=== PATIENT | female | born 1965 | race Hispanic/Latino ===

== ENCOUNTER 2020-09-19 11:27 | Inpatient (IN) | payer BC ==
[~2020-09-19 11:27] MED LIST: PROPOFOL 200 MG/20 ML VIAL ONE; Succinylcholine 200 MG/10 ml SYRINGE FS ONE
[2020-09-19] MEDS ORDERED: niCARdipine 20MG In NaCl 20 MG/200 ML BAG ONE ×3 (11:40→19:07)
[2020-09-19 11:58] LABS: #Basophils 0.1 thou/uL (0.0-0.2); #Lymphocytes 1.4 thou/uL (1.20-3.40); #Monocytes 0.5 thou/uL (0.11-0.59); %Basophils 0.4 % (0.0-1.0); %Eosinophils 0.2 % (0.0-10.0); %Lymphocytes 9.8 % (21.0-51.0); %Monocytes 3.5 % (0.0-10.0); %Neutrophils 86.2 % (42.0-75.0); Hemoglobin 16.1 g/dL (12.0-16.0); Mean Corpuscular HGB CONC 33.6 g/dL (32.0-36.0); Mean Corpuscular Hemoglobin 32.1 pg (27.0-31.0); Mean Corpuscular Volume 95.6 fL (78.0-98.0); Mean Platelet Volume 7.9 fL (7.4-10.4); Platelet Count 240 thou/uL (130-400); RBC Distribution Width 11.8 % (11.5-14.5); Red Blood Cell (RBC) Count 5.02 mill/uL (4.20-5.40); White Blood Cell (WBC) Count 13.9 thou/uL (4.8-10.8)
[2020-09-19 12:18] LABS: ALT (SGPT) 19 U/L (8-55); AST (SGOT) 16 U/L (5-34); Albumin 4.1 g/dL (3.5-5.0); Alkaline Phosphatase 107 U/L (40-110); Anion Gap 14 mmol/L (10-20); BUN (Urea Nitrogen) 11 mg/dL (9.8-20.1); Bilirubin, Total 0.5 mg/dL (0.2-1.2); CK (CPK) 266 U/L (29-168); Calc. Creatinine Clearance 0 mL/min (70-130); Calcium 9.1 mg/dL (7.8-10.44); Carbon Dioxide 29 mmol/L (22-29); Chloride 102 mmol/L (98-107); Globulin 3.9 g/dL (2.4-3.5); Glucose 126 mg/dL (70-105); Lipase 11 U/L (8-78); Potassium 3.7 mmol/L (3.5-5.1); Sodium 141 mmol/L (136-145)
--- NOTE | 2020-09-19 12:23 | RAD ---
RADIOGRAPH CHEST 1 VIEW: DATE: 09/19/2020 11:55 AM HISTORY: 55-year-old female with altered mental status, nausea, generalized weakness. Concern for aspiration. FINDINGS: The image is overexposed. There is no gross evidence of consolidation. The lateral costophrenic angle s are not effaced. Aorta is tortuous and ectatic. IMPRESSION: 1) Limited study. 2) no gross consolidation. 3) ectasia of thoracic aorta.
[2020-09-19] MEDS ORDERED: Ondansetron PF 4 MG/2 ML Vial ONE ×2 (12:25→15:01)
--- NOTE | 2020-09-19 13:17 | CT ---
CT HEAD WITHOUT IV CONTRAST COMPARISON: None. HISTORY: Altered mental status. Dizziness and nausea. Headache and generalized weakness. TECHNIQUE: Axial CT imaging at 5 mm intervals from vertex through skull base without contrast FINDINGS: There is decreased attenuation in the periventricular white matter which is nonspecific but likely re flective of chronic small vessel ischemic changes. Areas of diminished attenuation are seen in each thalamus as well as each basal ganglia related to lacunar infarctions of indeterminate age. There is mild cerebral volume loss. The ventricular system is normal in size, shape, and position for the degree of sulcal atrophy. There is no evidence of an acute cortical infarction, hemorrhage, mass effect, or midline shift. There are 2 aneurysms seen involving the basilar artery one near the proximal basilar artery at the j unction with the vertebral arteries which measures approximately 1.3 cm in diameter and a larger aneurysm seen just distal to this location measuring approximately 2 cm. There is generalized ectasia of the visualized middle cerebral arteries. Vascular calcifications are seen in the vertebral arteries as well as in the carotid siphons. Minimal mucosal thickening seen in each maxillary antrum and right sphenoid sinus. Mastoid air cells are clear Osseous structures appear intact. A prosthetic right globe is present. IMPRESSION: 1. Lacunar infarctions in each basal ganglia and thalami of indeterminate age. There is no acute peter ical infarction seen. 2. Chronic small vessel ischemic changes and cerebral volume loss. 3. Prominent aneurysms involving the basilar artery largest measuring [address] angiogram may be helpf ul for further evaluation and determination of the relationship of the proximal aneurysm with the vertebral arteries as well as proximity of the larger aneurysm with the posterior cerebral arteries. 4. Above findings discussed with Dr. Brizuela in the emergency department on 09/19/2020 at 1242 hours.
[2020-09-19 13:24] LABS: INR-International Normal Ratio 0.9; PTT 25.7 sec (22.9-36.1); Prothrombin Time 12.8 sec (12.0-14.7)
[2020-09-19] MEDS ORDERED: Iopamidol-370 76% 500 ML 1 ML ONE (13:35)
[2020-09-19] MEDS ORDERED: Docusate 100 MG CAP PO PRN (14:00)
[2020-09-19] MEDS ORDERED: Ondansetron PF 4 MG/2 ML Vial IVP PRN ×2 (14:00)
[2020-09-19] MEDS ORDERED: Electrolyte Replacement Protocol 1 EACH IVPB ONE (14:00)
[2020-09-19] MEDS ORDERED: Bisacodyl 10 MG SUPP PR PRN (14:00)
[2020-09-19] MEDS ORDERED: Acetaminophen 650 MG Suppository PR PRN (14:00)
--- NOTE | 2020-09-19 14:10 | PDOC.HHP ---
Hospitalist HPI Altered mental status, nausea, dizziness History of Present Illness: Ms. 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 Most of the history is taken from the patient's sister who is at bedside as patient is quite lethargic. 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 Patient sister states that when home patient symptoms worsened and she began dry heaving, and appeared to be confused. Patient says she is unsure if patient was able to recognize her. Patient's sister does not report any identifiable localized weakness, or facial droop. Patient does have a history of hypertension, but sister states that she is noncompliant with medication. Unsure as to what other medications patient takes. In emergency room initial vital signs 261/143, 76, 16, 98.1, 94% on room air. EKG showed normal sinus rhythm with left ventricular hypertrophy but no ST changes. Initial troponin 0 0.010. BNP 31.5. Chest x-ray with no acute lung findings, but did show ectasia of the thoracic aorta. H&H 16.1/48.1, WBC 13.9, platelets 240. BUN/CR 11/0.76, sodium 141, potassium 3.7, glucose 126. CTA of the brain showed prominent aneurysms including a 2 cm basilar artery aneurysm a nd a second 1.3 cm proximal basilar artery aneurysm at the junction of the vertebral arteries. Age-indeterminate lacunar infarct of basal ganglia and thalamus are also seen. No acute cortical infarction, hemorrhage, mass-effect or midline shift was noted. Patient admitted to hospitalist service with stat neurosurgery consult in place by emergency room physician. Allergies/Adverse Reactions: Allergy/AdvReac Type Severity Reaction Status Date / Time No Known Allergies Allergy Unverified 09/19/20 14:13 Comments: No known home medications. Report taken from patient's sister who reports that she has been prescribed medications for blood pressure and osteoarthritis in the past but does not believe patient is currently taking any. Past History: PMHx: Hypertension, osteoarthritis PSHx: Leg fracture with surgical repair, right globe traumatic injury as a child, prosthetic right eye in place. FHx: Family history of hypertension Social: Patient works as a cook at [employer]. No alcohol, smoking, drug use. Lives with her son Hospitalist GISELL IGNACIO unobtainable: due to mental status Constitutional: reports: weakness, malaise Eyes: denies: vision change Respiratory: denies: shortness of breath Cardiovascular: reports: light headedness. denies: chest pain, palpitations Gastrointestinal: reports: nausea Hospitalist Exam General - other findings: Lethargic Eye: PERRL, anicteric sclera ENT: normocephalic atraumatic, no oropharyngeal lesions, moist mucosa Neck: supple, symmetric, no JVD, no thyromegaly, no lymphadenopathy, no carotid bruit Heart: RRR, no murmur, no gallops, no rubs, normal peripheral pulses Respiratory: CTAB, no wheezes, no rales, no ronchi, normal chest expansion, no tachypnea, normal percussion Gastrointestinal: soft, non-tender, non-distended, normal bowel sounds, no palpable masses, no hepatomegaly, no splenomegaly, no bruit Extremities: no cyanosis, no clubbing, no edema Skin: normal turgor, no lesions, no rashes Neurological: cranial nerve grossly intact, normal sensation to touch, no weakness, no focal deficits, no new deficit Musculoskeletal: normal tone, normal strength, no muscle wasting Psychiatric: normal affect, normal behavior, A&O x 3 Hospitalist Results Result Diagrams: 09/19/20 11:48 09/19/20 11:43 Lab results: Laboratory Last Values WBC 13.9 thou/uL (4.8-10.8) H 09/19/20 11:48 RBC 5.02 mill/uL (4.20-5.40) 09/19/20 11:48 Hgb 16.1 g/dL (12.0-16.0) H 09/19/20 11:48 Hct 48.0 % (36.0-47.0) H 09/19/20 11:48 MCV 95.6 fL (78.0-98.0) 09/19/20 11:48 MCH 32.1 pg (27.0-31.0) H 09/19/20 11:48 MCHC 33.6 g/dL (32.0-36.0) 09/19/20 11:48 RDW 11.8 % (11.5-14.5) 09/19/20 11:48 Plt Count 240 thou/uL (130-400) 09/19/20 11:48 MPV 7.9 fL (7.4-10.4) 09/19/20 11:48 Neutrophils % 86.2 % (42.0-75.0) H 09/19/20 11:48 Lymphocytes % 9.8 % (21.0-51.0) L 09/19/20 11:48 Monocytes % 3.5 % (0.0-10.0) 09/19/20 11:48 Eosinophils % 0.2 % (0.0-10.0) 09/19/20 11:48 Basophils % 0.4 % (0.0-1.0) 09/19/20 11:48 Neutrophils # 12.0 thou/uL (1.40-6.50) H 09/19/20 11:48 Lymphocytes # 1.4 thou/uL (1.20-3.40) 09/19/20 11:48 Monocytes # 0.5 thou/uL (0.11-0.59) 09/19/20 11:48 Eosinophils # 0.0 thou/uL (0.0-0.7) 09/19/20 11:48 Basophils # 0.1 thou/uL (0.0-0.2) 09/19/20 11:48 PT 12.8 sec (12.0-14.7) 09/19/20 11:49 INR 0.9 09/19/20 11:49 APTT 25.7 sec (22.9-36.1) 09/19/20 11:49 Sodium 141 mmol/L (136-145) 09/19/20 11:43 Potassium 3.7 mmol/L (3.5-5.1) 09/19/20 11:43 Chloride 102 mmol/L (98-107) 09/19/20 11:43 Carbon Dioxide 29 mmol/L (22-29) 09/19/20 11:43 Anion Gap 14 mmol/L (10-20) 09/19/20 11:43 BUN 11 mg/dL (9.8-20.1) 09/19/20 11:43 Creatinine 0.76 mg/dL (0.6-1.1) 09/19/20 11:43 Estimated GFR (MDRD) 80 09/19/20 11:43 Glucose 126 mg/dL (70-105) H 09/19/20 11:43 Calcium 9.1 mg/dL (7.8-10.44) 09/19/20 11:43 Total Bilirubin 0.5 mg/dL (0.2-1.2) 09/19/20 11:43 AST 16 U/L (5-34) 09/19/20 11:43 ALT 19 U/L (8-55) 09/19/20 11:43 Alkaline Phosphatase 107 U/L (40-110) 09/19/20 11:43 Creatine Kinase 266 U/L (29-168) H 09/19/20 11:43 Troponin I Less than 0.010 ng/mL (< 0.028) 09/19/20 11:43 B-Natriuretic Peptide 31.5 pg/mL (0-100) 09/19/20 11:48 Serum Total Protein 8.0 g/dL (6.0-8.3) 09/19/20 11:43 Albumin 4.1 g/dL (3.5-5.0) 09/19/20 11:43 Globulin 3.9 g/dL (2.4-3.5) H 09/19/20 11:43 Albumin/Globulin Ratio 1.1 g/dL (1.2-2.2) L 09/19/20 11:43 Lipase 11 U/L (8-78) 09/19/20 11:43 Hospitalist H&P A/P Plan: Altered mental status Patient with altered mental status including severe hypertension, nausea, headache. Suspect elevated intracranial pressure secondary to hypertensive emergency and very large multiple cerebral aneurysms versus intracranial bleed vs ischemic stroke. CT scan with no evidence of acute bleed, midline shift or mass-effect. Patient lethargic on exam, however is able to answer questions and follow commands. ANO x4. Neuro exam is nonfocal. Patient started on nifedipin e drip in emergency room. Stat neurosurgery consult to evaluate for question of elevated ICP and large cerebral aneurysms. Plan CCU monitoring Head of bed greater than 30 degrees Strict n.p.o. Strict blood pressure management Glucose control -STAT MRI brain -Neurology consult Stat neurosurgery consult Hypertensive emergency Patient initially presented with blood pressure 261/143. Started on nifedipine drip in emergency room with improvement of blood pressure to 169/89. Patient with altered mental status. Given suspicion for elevated intracranial pressure and question of intracranial bleed will maintain strict blood pressure control. Plan Nifedipine drip Strict blood pressure control CCU monitoring Cerebral aneurysms Patient with large 2 cm cerebral aneurysm of the basilar artery and additional 1.3 cm aneurysm of the proximal basilar artery near the vertebral artery junction. These appear to be the first time these have been diagnosed. No evidence of dissection on CT scan. No evidence of acute intracranial bleed. Stat neurology consult placed. Plan Stat neurosurgery consult Every 2 hour neurochecks Blood pressure control Thoracic aortic ectasia Chest x-ray showed ectasia of thoracic aorta. Given patient's multiple cerebral aneurysms, suspicion for some type of collagen vascular disease. Once patient is more stabilized will pursue CT aorta with runoff to assess for further aortic disease. No known family history of aneurysmal disease. Plan CTA aorta with runoff once stabilized Leukocytosis WBC 13.9. No suspicion for infectious process at this time. May be reactive. Patient afebrile. We will continue to trend. Obtain lactic acid. Left ventricular hypertrophy LVH on EKG. Mild systolic murmur heard on exam. Will obtain echocardiogram to further evaluate once patient is stabilized. Troponin 0 0.010, BNP 31.5. Case discussed with attending physician, Dr. Reynaga who is in agreement with assessment and plan.
[2020-09-19] MEDS ORDERED: Electrolyte Replacement Protocol FS PRN (14:15)
[2020-09-19] MEDS ORDERED: niCARdipine 25 MG in Sodium Chloride 0.9% 250 ML 250 ML IVPB SCH (14:15)
--- NOTE | 2020-09-19 15:13 | PDOC.EVN ---
Event Note - Event Note Event Note: Patient's case was reviewed with JOVANNA Paulino. Patient presented with severe headache and altered mental status. Imaging has indicated significant aneurysmal changes of the brain. Patient remains somewhat encephalopathic although she has no other focal neurological findings. Blood pressure remains significantly elevated even while on the Cardene drip. Discussed with neurosurgery. Obtaining MRI to rule out potential bleed. Has some thoracic aortic aneurysmal ectasia as well. Will work-up for other potential aneurysmal lesions. Admit to the ICU on a Cardene drip for aggressive blood pressure management.
--- NOTE | 2020-09-19 16:16 | MRI ---
MRI BRAIN NONCONTRAST: DATE: 09/19/2020 HISTORY: 55-year-old female with acute dizziness, nausea, headache, generalized weakness, and decreased level of consciousness. Dr. Burks discussed the findings by telephone with neurosurgery JOVANNA Mackenzie at 4:04 PM 09/19/2020 COMPARISON: None FINDINGS: All of the images are significantly degraded by patient motion. There is a moderate-sized region of restricted diffusion involving the inferior aspect of the left ce rebellar hemisphere representing an acute infarction in the left PICA territory. There is a punctate tiny focus of restricted diffusion in the inferior aspect of the contralateral ri ght cerebellar hemisphere representing an acute lacunar infarction in the right PICA territory. There is no restricted diffusion supratentorially in the cerebrum or in the brainstem. There is deep chronic indentation of the right anterior midbrain and james due to the large basilar ar argelia aneurysm demonstrated on CT angiogram earlier today. There is a large number of punctate foci of magnetic susceptibility blooming artifact in the posterio r halves of the bilateral cerebral hemispheres, including temporal, parietal, and occipital lobes, and also bilateral thalami, representing numerous tiny old microhemorrhages. In a patient of this age, this could represent chronic hypertensive encephalopathy. However, the lack of involvement of bilateral basal ganglia militates against chronic hypertensive en cephalopathy. This pattern is typical for cerebral amyloid angiopathy, but the patient's age is young for that diag nosis. There are confluent, moderate degree of chronic ischemic white matter changes in the periventricular, deep, and subcortical white matter of the cerebrum. No obstructive hydrocephalus, acute intra-axial hemorrhage, midline shift, or extra-axial fluid colle ction.. IMPRESSION: 1) moderate sized acute infarction of the left cerebellum in the left PICA (posterior-inferior cerebe llar artery) territory. 2) tiny acute lacunar infarction of right cerebellum in the right PICA territory. 3) large basilar artery aneurysm deeply indenting the brainstem chronically. 4) large number of punctate old intra-axial microhemorrhages of the cerebral hemispheres bilaterally. Differential diagnosis is chronic hypertensive encephalopathy versus cerebral amyloid angiopathy, with caveats discussed above. 5) moderate chronic ischemic white matter changes of the cerebrum, which could be due to chronic hype rtension and/or chronic diabetes mellitus.
[2020-09-19 17:12] LABS: Lactic Acid 3.7 mmol/L (0.5-2.2)
[2020-09-19 17:40] LABS: Hemoglobin 16.5 g/dL (12.0-16.0); Mean Corpuscular HGB CONC 33.2 g/dL (32.0-36.0); Mean Corpuscular Hemoglobin 31.9 pg (27.0-31.0); Mean Platelet Volume 7.8 fL (7.4-10.4); Platelet Count 214 thou/uL (130-400); RBC Distribution Width 11.9 % (11.5-14.5); Red Blood Cell (RBC) Count 5.19 mill/uL (4.20-5.40); White Blood Cell (WBC) Count 10.8 thou/uL (4.8-10.8)
[2020-09-19] MEDS ORDERED: Heparin 25,000 units/D5W 500 ML ONE (17:44)
[2020-09-19 18:00] LABS: Band 23 % (5-11); Lymphocytes 4 % (21-51); Monocytes 2 % (0-10); Neutrophil 67 % (42-75); Reactive Lymphocytes 4 % (0-10)
[2020-09-19 18:01] LABS: Polychromasia SLIGHT = 2-3 cells (100X) (0-2/hpf); Target Cells SLIGHT = 2-5 cells (100X) (0-1/hpf)
[2020-09-19 18:02] LABS: MDiff Complete? YES; Platelet Morphology Comment Appears Adequate
[2020-09-19 18:05] LABS: Anion Gap 16 mmol/L (10-20); Carbon Dioxide 21 mmol/L (22-29); Chloride 104 mmol/L (98-107); Potassium 4.2 mmol/L (3.5-5.1); Sodium 137 mmol/L (136-145)
[2020-09-19 18:19] LABS: BUN (Urea Nitrogen) 11 mg/dL (9.8-20.1); Calc. Creatinine Clearance 0 mL/min (70-130); Glucose 134 mg/dL (70-105); Uric Acid 6.2 mg/dL (2.6-6.0)
[2020-09-19 18:26] LABS: SARS-CoV-2 NAA Rapid Test Not Detected (NotDetected)
[2020-09-19] MEDS: niMODipine 30 MG CAP PO SCH ×2 (21:30→21:45)
[2020-09-19] MEDS: levETIRAcetam 500 MG TAB PO SCH (21:30)
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
[2020-09-20] MEDS ORDERED: Ondansetron PF 4 MG/2 ML Vial ONE (01:28)
[2020-09-20] MEDS ORDERED: Sodium Chloride 0.9% 30 ML ONE (01:29)
[2020-09-20] MEDS: niCARdipine 25 MG in Sodium Chloride 0.9% 250 ML 250 ML IVPB SCH ×4 (02:21→17:04)
[2020-09-20] MEDS: niMODipine 30 MG CAP PO SCH (02:23)
[2020-09-20] MEDS ORDERED: Acetaminophen 325 MG TAB ONE ×2 (04:45→16:33)
[2020-09-20] MEDS: Acetaminophen 325 MG TAB PO PRN ×2 (04:46→16:33)
[2020-09-20 06:12] LABS: #Basophils 0.1 thou/uL (0.0-0.2); #Lymphocytes 1.7 thou/uL (1.20-3.40); #Monocytes 0.5 thou/uL (0.11-0.59); #Neutrophils 10.6 thou/uL (1.40-6.50); %Basophils 0.4 % (0.0-1.0); %Lymphocytes 13.3 % (21.0-51.0); %Monocytes 4.1 % (0.0-10.0); %Neutrophils 82.2 % (42.0-75.0); Hemoglobin 13.7 g/dL (12.0-16.0); Mean Corpuscular HGB CONC 33.1 g/dL (32.0-36.0); Mean Corpuscular Hemoglobin 31.2 pg (27.0-31.0); Mean Corpuscular Volume 94.4 fL (78.0-98.0); Platelet Count 234 thou/uL (130-400); RBC Distribution Width 11.9 % (11.5-14.5); Red Blood Cell (RBC) Count 4.39 mill/uL (4.20-5.40); White Blood Cell (WBC) Count 12.9 thou/uL (4.8-10.8)
[2020-09-20 06:38] LABS: Anion Gap 12 mmol/L (10-20); BUN (Urea Nitrogen) 11 mg/dL (9.8-20.1); Calc. Creatinine Clearance 216 mL/min (70-130); Calcium 8.6 mg/dL (7.8-10.44); Carbon Dioxide 26 mmol/L (22-29); Chloride 103 mmol/L (98-107); Cholesterol 184 mg/dl (< 200 Desired); Glucose 129 mg/dL (70-105); HDL Cholesterol 46 mg/dL (>60 Neg Risk); LDL Cholesterol, Calculated 117 mg/dL; Potassium 3.4 mmol/L (3.5-5.1); Sodium 138 mmol/L (136-145); Triglycerides 106 mg/dL (Less than 150)
[2020-09-20] MEDS ORDERED: Potassium Bicarbonate/Cit Ac 20 MEQ TAB PER TUBE SCH (07:15)
--- NOTE | 2020-09-20 07:51 | PRG ---
DATE OF SERVICE: 09/20/2020 I personally interviewed and examined the patient, agree with documentation of Fer Mackenzie PA-C, dated 09/19/2020. Briefly, Lexus Chase is a 55-year-old woman who had acute onset of nausea and vomiting with headache around 10:00 a.m. yesterday. She came to the emergency department, where CT examination of the brain showed large vascular structures in the posterior fossa, but did not show hemorrhage. MR imaging was done showing a stroke in the left cerebellum and CT angiography showed large dolichoectatic vertebrobasilar system, it is quite tortuous and enlarged. Ms. Chase is treated as posterior fossa stroke. We started heparin without a bolus. The use of heparin was decided upon because of the potential need for decompression of the posterior fossa. At least the heparin can be turned off and reversed in a more acute fashion, then advanced anti-platelet agents and certainly more readily than anticoagulation. Overnight Ms. Chase has been watched in the PACU because our ICU is full. Nursing has not reported any events. When I saw Ms. Chase this morning, she wakes slowly but then she converses. She answers questions appropriately. She tells me she has a prosthetic right eye. Her examination shows that the left eye moves through all directions in primary gaze. There is some end gaze nystagmus when she gazes to the left. The face is sensate right now and it moves symmetrically. She can hear from both ears. The palate elevates, the tongue protrudes. There is dysmetria on the left side of the body and [id number]. Alternating rapid motions are performed very slowly on the left compared to the right. She has intact sensation bilaterally in the body. Her aPTT this morning was 49.6. We are heading towards the therapeutic range that we decided upon without the bolus. Her total IV fluid is 65 mL. White blood cell count this morning is 12.9 and sodium 137. Ms. Chase is being treated as posterior fossa stroke. This is not a subarachnoid hemorrhage. The stroke comes from the dolichoectatic nature of the aneurysm. Slow flow of blood could have occluded PICA or the aneurysm could have changed in its size or put stress on the cerebellar arteries. Hopefully, the heparin will prevent any further propagation of clot. Propagation of clot could be in a locked-in syndrome. Swelling in the cerebellum could mean decompression of posterior fossa as necessary. We will need to watch Ms. Chase very closely over the weekend and have her aPTT between 55 and 70. Job ID: [id number] [facility]TD[facility]
[2020-09-20] MEDS: levETIRAcetam 500 MG TAB PO SCH ×2 (08:31→20:51)
--- NOTE | 2020-09-20 08:52 | CT ---
PRELIMINARY REPORT/[facility]/EMERGENCY AFTER HOURS PROCEDURE: EXAM: CT Head Without Intravenous Contrast. CLINICAL HISTORY: Follow up cerebellar stroke TECHNIQUE: Axial computed tomography images of the head/brain without intravenous contrast. COMPARISON: September 19, 2020 FINDINGS: BRAIN: Some subtle low density is now present involving the inferior portions of the left cerebellum again with marked vertebrobasilar dolichoectasia. There does appear to be some early mass-effect on the fourth ventricle. Lateral ventricles remain prominent with abundant periventricular white mat ter changes noted in the supratentorial space. No midline shift identified. ORBITS: Prosthetic globe on the right. SINUSES AND MASTOIDS: The paranasal sinuses and mastoid air cells are clear. SOFT TISSUES: No significant facial or scalp soft tissue swelling evident. No radiopaque foreign body is seen. BONES: No acute skull fracture. IMPRESSION: Developing left cerebellar infarct with marked vertebrobasilar dolichoectasia. Mild vent riculomegaly noted but stable. ELECTRONICALLY SIGNED BY: Fer Vega MD Sep 20, 2020 4:14:43 AM MANAGER LABORATORY FINAL REPORT HEAD CT WITHOUT CONTRAST: HISTORY: Follow-up left cerebellar infarct. COMPARISON: 09/19/2020. FINDINGS: Hemorrhage: No intraparenchymal hemorrhage or extra-axial hematoma. Brain parenchyma: Cortical huynh-white matter differentiation is preserved. No mass effect or midline shift. Basilar cisterns are patent.Expected evolutionary changes involving a large left cerebellar infarct. Stable chronic small vessel ischemic changes of the white matter. Vessels: Stable ectasia and aneurysmal dilatation. Ventricular system: Ventricles and sulci are patent and symmetric. Calvarium: Intact. Sinuses and mastoid air cells: Adequate aeration. IMPRESSION: 1. This report is in agreement with initial report by [facility]. 2. Expected evolutionary changes of a left cerebellar infarct. Transcribed Date/Time: 09/20/2020 9:18 AM
[2020-09-20] MEDS ORDERED: FLU VACC QS2020-21(6MOS UP)/PF 60 MCG/0.5 ML SYRINGE IM ONE (09:00)
[2020-09-20] MEDS: Heparin 25,000 units/D5W 500 ML IVPB SCH ×2 (09:35→21:00)
[2020-09-20 09:36] LABS: Bilirubin Negative (Negative); Blood, Urine 3+ (Negative); Clarity Clear (Clear); Glucose, Urine (Dipstick) Normal (Negative); Ketone, Urine Negative (Negative); Leukocyte 75 Leu/uL (Negative); Nitrite Negative (Negative); Protein, Urine (Dipstick) 10 mg/dL (Neg-Trace); RBC/HPF Greater than 50 HPF (0-3); Specific Gravity, Urine 1.025 (1.002-1.036); Squamous Epithelial 0-3 HPF (0-3); Urobilinogen Normal mg/dL (Less than 2)
[2020-09-20 09:39] LABS: Bacteria/HPF 1+ HPF (None Seen)
[2020-09-20 13:31] LABS: Potassium 3.7 mmol/L (3.5-5.1)
--- NOTE | 2020-09-20 14:17 | CON ---
NEUROLOGY CONSULTATION DATE OF CONSULTATION: 09/20/2020 REASON FOR CONSULTATION: Posterior circulation stroke. HISTORY OF PRESENT ILLNESS: Ms. 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 The patient is a poor historian. History is obtained from review of the medical records. Per records, the sister reported that the patient was at work and had severe headache with generalized weakness, nausea when she picked her son up and when she reached home, her symptoms worsened and she appeared to be confused and unable to recognize her sister. The sister denies any focal weakness, focal paresthesias, nausea, vomiting, chest pain, abdominal pain, facial droop, or any other neurological symptoms. The sister also denies any recent sick contacts or exposure to COVID. She does have history of hypertension and is noncompliant with the medications. In the emergency room, the blood pressure was 261/143, pulse 76, respiratory rate 16. EKG shows normal sinus rhythm with left ventricular hypertrophy, but no ST changes. Chest x-ray did not reveal any acute lung findings, but does show ectasia of the thoracic aorta. CTA of the brain showed prominent aneurysms including 2 cm basilar artery aneurysm proximal basilar artery aneurysm at the junction of the vertebral artery and age-indeterminate lacunar infarct of the basal ganglia and thalamus is also seen, but no hemorrhage, mass effect, or midline shift. She was admitted to the hospitalist service and stat Neurosurgery consult was placed for further recommendations. The patient was seen by Neurosurgery and was started on heparin drip without bolus to reduce massive effects and admitted to the CCU for close monitoring as that she is at risk of decompensation because of posterior circulation stroke. ALLERGIES: NO KNOWN DRUG ALLERGIES. PAST MEDICAL HISTORY: Hypertension, osteoarthritis. PAST SURGICAL HISTORY: Leg fracture with surgical repair, right globe traumatic injury with prosthetic right eye. FAMILY HISTORY: Significant for hypertension. SOCIAL HISTORY: The patient works as a cook at [employer]. Denies smoking, alcohol, illegal drug use. She lives with her son. REVIEW OF SYSTEMS: Unobtainable at that time. Per sister, all systems reviewed and reported in the HPI. PHYSICAL EXAMINATION: 181/103 88 18 General - other findings: Lethargic Eye: PERRL, anicteric sclera ENT: normocephalic atraumatic, no oropharyngeal lesions, moist mucosa Neck: supple, symmetric, no JVD, no thyromegaly, no lymphadenopathy, no carotid bruit Heart: RRR, no murmur, no gallops, no rubs, normal peripheral pulses Respiratory: CTAB, no wheezes, no rales, no ronchi, normal chest expansion, no tachypnea, normal percussion Gastrointestinal: soft, non-tender, non-distended, normal bowel sounds, no palpable masses, no hepatomegaly, no splenomegaly, no bruit Extremities: no cyanosis, no clubbing, no edema Skin: normal turgor, no lesions, no rashes Neurological: Mental status; the patient is alert and oriented to person, place, and time. Speech is clear. Cranial nerves 2 through 12 intact except prosthetic right eye. Motor; muscle tone and bulk are normal. Moving all 4 extremities equally and symmetrically. Sensory; withdraws to nailbed pressure bilaterally. Cerebellar; finger-nose testing intact. Gait deferred due to patient's safety reason. DATA REVIEWED: Lab results: Laboratory Last Values WBC 13.9 thou/uL (4.8-10.8) H 09/19/20 11:48 RBC 5.02 mill/uL (4.20-5.40) 09/19/20 11:48 Hgb 16.1 g/dL (12.0-16.0) H 09/19/20 11:48 Hct 48.0 % (36.0-47.0) H 09/19/20 11:48 MCV 95.6 fL (78.0-98.0) 09/19/20 11:48 MCH 32.1 pg (27.0-31.0) H 09/19/20 11:48 MCHC 33.6 g/dL (32.0-36.0) 09/19/20 11:48 RDW 11.8 % (11.5-14.5) 09/19/20 11:48 Plt Count 240 thou/uL (130-400) 09/19/20 11:48 MPV 7.9 fL (7.4-10.4) 09/19/20 11:48 Neutrophils % 86.2 % (42.0-75.0) H 09/19/20 11:48 Lymphocytes % 9.8 % (21.0-51.0) L 09/19/20 11:48 Monocytes % 3.5 % (0.0-10.0) 09/19/20 11:48 Eosinophils % 0.2 % (0.0-10.0) 09/19/20 11:48 Basophils % 0.4 % (0.0-1.0) 09/19/20 11:48 Neutrophils # 12.0 thou/uL (1.40-6.50) H 09/19/20 11:48 Lymphocytes # 1.4 thou/uL (1.20-3.40) 09/19/20 11:48 Monocytes # 0.5 thou/uL (0.11-0.59) 09/19/20 11:48 Eosinophils # 0.0 thou/uL (0.0-0.7) 09/19/20 11:48 Basophils # 0.1 thou/uL (0.0-0.2) 09/19/20 11:48 PT 12.8 sec (12.0-14.7) 09/19/20 11:49 INR 0.9 09/19/20 11:49 APTT 25.7 sec (22.9-36.1) 09/19/20 11:49 Sodium 141 mmol/L (136-145) 09/19/20 11:43 Potassium 3.7 mmol/L (3.5-5.1) 09/19/20 11:43 Chloride 102 mmol/L (98-107) 09/19/20 11:43 Carbon Dioxide 29 mmol/L (22-29) 09/19/20 11:43 Anion Gap 14 mmol/L (10-20) 09/19/20 11:43 BUN 11 mg/dL (9.8-20.1) 09/19/20 11:43 Creatinine 0.76 mg/dL (0.6-1.1) 09/19/20 11:43 Estimated GFR (MDRD) 80 09/19/20 11:43 Glucose 126 mg/dL (70-105) H 09/19/20 11:43 Calcium 9.1 mg/dL (7.8-10.44) 09/19/20 11:43 Total Bilirubin 0.5 mg/dL (0.2-1.2) 09/19/20 11:43 AST 16 U/L (5-34) 09/19/20 11:43 ALT 19 U/L (8-55) 09/19/20 11:43 Alkaline Phosphatase 107 U/L (40-110) 09/19/20 11:43 Creatine Kinase 266 U/L (29-168) H 09/19/20 11:43 Troponin I Less than 0.010 ng/mL (< 0.028) 09/19/20 11:43 B-Natriuretic Peptide 31.5 pg/mL (0-100) 09/19/20 11:48 Serum Total Protein 8.0 g/dL (6.0-8.3) 09/19/20 11:43 Albumin 4.1 g/dL (3.5-5.0) 09/19/20 11:43 Globulin 3.9 g/dL (2.4-3.5) H 09/19/20 11:43 Albumin/Globulin Ratio 1.1 g/dL (1.2-2.2) L 09/19/20 11:43 Lipase 11 U/L (8-78) 09/19/20 11:43 ASSESSMENT AND PLAN: Ms. Lexus Chase is a 55-year-old female, who presented with altered mental status in the setting of hypertensive emergency with nausea and headache. There is a concern about elevated intracranial pressure secondary to hypertensive emergency and very large multiple cerebral aneurysms and a high suspicion of posterior circulation stroke and she was started on nifedipine drip in the emergency room and Neurosurgery consult was placed. The patient was seen by the Neurosurgery and stat MRI was performed, MRI of the brain reviewed, which showed restricted diffusion involving the inferior aspect of the left cerebellar hemisphere, representing acute infarction in the left posterior inferior cerebellar artery. . The patient has posterior fossa stroke, so she was started on heparin drip without bolus because of the potential need for decompression of posterior fossa. Continue by Neurosurgery. Continue heparin GTT. Neuro checks every 4 hours. Consider stat noncontrast head CT if the condition worsen to rule out bleed. Telemetry to rule out arrhythmias. Further stroke workup including 2D echo when stable. EEG to rule out cortical irritability and to evaluate for altered mental status.. Sttrict control of blood pressure at this time. PT/OT/Speech . Strict control of blood glucose and blood pressure. Continue medical management per primary team and Neurosurgery. Plan discussed in detail with the patient and the nursing staff. We will continue to follow. Thank you for the consult. Job ID: [id number] MTDD
--- NOTE | 2020-09-20 15:34 | PDOC.EEG ---
Neurology EEG Report - Report Report: This EEG was performed using 24 channel [employer] video EEG machine with 24 disc krysta ctrodes. This was an extended 2 hours 6 minutes of inpatient video EEG recording. Digital analysis of the EEG was done for spike and seizure detection which revealed no abnormalities. Background: There is a nonsustained posterior background rhythm of 8-9 Hz. EEG with excessive beta activity intermixed with the background. Hyperventilation: Not performed. Photic Stimulation: No significant response. Sleep: Drowsiness and sleep are observed. EEG Diagnosis: Occasional irregular theta activity seen during the recording. Nonsustained posterior background rhythm. Clinical Interpretation: This EEG is consistent with mild to moderate generalized nonspecific cerebral dysfunction.
--- NOTE | 2020-09-20 19:32 | PDOC.HOSPP ---
- Subjective Encounter Date: 09/20/20 Subjective: Patient reported that she felt generally well. She did feel a little weak. Physical therapy was there at the time to try to get her up. - Objective Vital Signs & Weight: Vital Signs (12 hours) Temp Pulse Pulse BP BP Pulse Ox Pulse Ox 09/20/20 14:09 81 170/100 H 181/103 H 09/20/20 12:00 97.8 F 09/20/20 10:40 76 78 167/94 H 168/91 H 98 09/20/20 08:30 96 09/20/20 08:15 97 Pulse Ox 09/20/20 14:09 09/20/20 12:00 09/20/20 10:40 93 L 09/20/20 08:30 09/20/20 08:15 Weight Admit Weight 265 lb 14.04 oz Weight 269 lb Most Recent Monitor Data Heart Rate from ECG 79 NIBP 167/94 NIBP BP-Mean 118 Respiration from ECG 31 SpO2 98 I&O: 09/19/20 09/20/20 09/21/20 06:59 06:59 06:59 Intake Total 240 420 Output Total 1140 1260 Balance -900 -840 Result Diagrams: 09/20/20 05:24 09/20/20 12:59 Additional Labs: Accuchecks 09/20/20 09/20/20 09/19/20 11:15 03:12 22:36 POC Glucose 145 H 114 H 130 H Hospitalist ROS - Medication Medications: Active Medications Generic Name Dose Route Start Last Admin Trade Name Freq PRN Reason Stop Dose Admin Acetaminophen 650 mg 09/19/20 14:00 09/20/20 16:33 Acetaminophen 325 Mg Tab PO 650 mg Q6H PRN Administration Fever > 101 or Headache Heparin Sodium/Dextrose 500 mls @ 0 mls/hr 09/19/20 17:15 09/20/20 09:35 Heparin 25,000 Units/D5w IVPB 500 mls INF HOLLY Administration Protocol Per Protocol Levetiracetam 500 mg 09/19/20 21:00 09/20/20 08:31 Levetiracetam 500 Mg Tab PO 500 mg BID HOLLY Administration Ondansetron HCl 4 mg 09/19/20 14:00 09/20/20 01:30 Ondansetron Pf 4 Mg/2 Ml Vial IVP 4 mg BIDPRN PRN Administration Nausea/Vomiting Hospitalist Exam Vitals: Vital Signs (12 hours) Temp Pulse Pulse BP BP Pulse Ox Pulse Ox 09/20/20 14:09 81 170/100 H 181/103 H 09/20/20 12:00 97.8 F 09/20/20 10:40 76 78 167/94 H 168/91 H 98 09/20/20 08:30 96 09/20/20 08:15 97 Pulse Ox 09/20/20 14:09 09/20/20 12:00 09/20/20 10:40 93 L 09/20/20 08:30 09/20/20 08:15 Weight Admit Weight 265 lb 14.04 oz Weight 269 lb Most Recent Monitor Data Heart Rate from ECG 79 NIBP 167/94 NIBP BP-Mean 118 Respiration from ECG 31 SpO2 98 General Appearance: NAD, awake alert General - other findings: Morbidly obese Eye - other findings: Right eye prosthesis Neck: supple, symmetric, no JVD, no thyromegaly, no lymphadenopathy, no carotid bruit Heart: RRR, no murmur, no gallops, no rubs, normal peripheral pulses Respiratory: CTAB, no wheezes, no rales, no ronchi, normal chest expansion, no tachypnea, normal percussion Gastrointestinal: soft, non-tender, non-distended, normal bowel sounds, no palpable masses, no hepatomegaly, no splenomegaly, no bruit Extremities: no cyanosis, no clubbing, no edema Skin: normal turgor Neurological - other findings: Patient was noted to almost fall backwards sitting on the side of the bed Musculoskeletal: no muscle wasting Psychiatric: normal affect, normal behavior Hosp A/P (1) Basilar artery aneurysm Code(s): I72.5 - ANEURYSM OF OTHER PRECEREBRAL ARTERIES Status: Acute (2) Cerebrovascular accident (CVA) due to occlusion of cerebellar artery Code(s): I63.549 - CEREB INFRC DUE TO UNSP OCCLS OR STENOS OF UNSP CEREBLR ART Status: Acute (3) Hypertensive urgency Code(s): I16.0 - HYPERTENSIVE URGENCY Status: Acute (4) Thoracic aortic ectasia Code(s): I77.810 - THORACIC AORTIC ECTASIA Status: Acute (5) Leukocytosis Code(s): D72.829 - ELEVATED WHITE BLOOD CELL COUNT, UNSPECIFIED Status: Acute (6) Acute metabolic encephalopathy Code(s): G93.41 - METABOLIC ENCEPHALOPATHY Status: Acute - Plan Acute metabolic encephalopathy: Clearly secondary to the patient's stroke and hypertensive urgency. Seems to be substantially better today. Patient is much more awake and communicative. Cerebellar CVA: Appreciate neurosurgery and neurology consults. Heparin drip. Concerning for occlusion of the circulation from the existing aneurysms. PT OT and speech consults. Hypertensive urgency: Patient has findings on her MRI of the brain showing scattered punctate lesions that were likely a result of the significant hypertensive urgency. Patient remains on a Cardene drip for blood pressure control. Basilar artery aneurysm: As above concerning that these may be causing some compromise circulation. Remains on a heparin drip. Blood pressure management with Cardene. Leukocytosis: No evidence of underlying infection. Continue to monitor. Thoracic aortic ectasia: We will need CT of the chest when she is stable.
[2020-09-20] MEDS: niCARdipine 50 MG in Sodium Chloride 0.9% 250 ML 230 ML IV SCH (20:51)
[2020-09-21] MEDS: niCARdipine 50 MG in Sodium Chloride 0.9% 250 ML 230 ML IV SCH ×4 (00:31→23:06)
[2020-09-21 01:59] LABS: #Lymphocytes 1.8 thou/uL (1.20-3.40); #Monocytes 0.5 thou/uL (0.11-0.59); #Neutrophils 9.5 thou/uL (1.40-6.50); %Basophils 0.2 % (0.0-1.0); %Eosinophils 0.1 % (0.0-10.0); %Lymphocytes 14.9 % (21.0-51.0); %Monocytes 4.4 % (0.0-10.0); %Neutrophils 80.4 % (42.0-75.0); Hemoglobin 15.1 g/dL (12.0-16.0); Mean Corpuscular HGB CONC 32.9 g/dL (32.0-36.0); Mean Corpuscular Hemoglobin 31.1 pg (27.0-31.0); Mean Corpuscular Volume 94.4 fL (78.0-98.0); Platelet Count 235 thou/uL (130-400); RBC Distribution Width 11.9 % (11.5-14.5); Red Blood Cell (RBC) Count 4.86 mill/uL (4.20-5.40); White Blood Cell (WBC) Count 11.7 thou/uL (4.8-10.8)
[2020-09-21 02:29] LABS: Anion Gap 12 mmol/L (10-20); BUN (Urea Nitrogen) 10 mg/dL (9.8-20.1); Calc. Creatinine Clearance 199 mL/min (70-130); Calcium 8.9 mg/dL (7.8-10.44); Carbon Dioxide 25 mmol/L (22-29); Chloride 104 mmol/L (98-107); Glucose 151 mg/dL (70-105); Potassium 3.9 mmol/L (3.5-5.1); Sodium 137 mmol/L (136-145)
[2020-09-21] MEDS ORDERED: Acetaminophen 325 MG TAB ONE ×2 (03:01)
[2020-09-21] MEDS: Acetaminophen 325 MG TAB PO PRN (03:07)
[2020-09-21] MEDS ORDERED: Senokot S 8.6-50 MG TAB PO PRN (07:54)
[2020-09-21] MEDS ORDERED: Loratadine 10 MG TAB PO PRN (07:54)
[2020-09-21] MEDS ORDERED: Bisacodyl 5 MG TAB PO PRN (07:54)
[2020-09-21] MEDS ORDERED: Cepastat Lozenges 1 LOZ PO PRN (07:54)
[2020-09-21] MEDS ORDERED: HYDROcodone/Acetaminophen 5/325 mg Tablet PO PRN (07:54)
[2020-09-21] MEDS ORDERED: Loperamide HCl 2 MG CAP PO PRN (07:54)
[2020-09-21] MEDS ORDERED: Sodium Chloride 0.65% Nasal 44 ML BOT EA NARE PRN (07:54)
[2020-09-21] MEDS ORDERED: Labetalol HCl 100 MG/20 ML VIAL SLOW IVP PRN (07:54)
--- NOTE | 2020-09-21 10:19 | CT ---
CT BRAIN NONCONTRAST: DATE: 09/21/2020 9:45 AM HISTORY: 56-year-old female with acute change in neurological status: Altered mental status. At 10:09 AM 09/21/2020 Dr. Bruks notified neurosurgery JOVANNA Conley of the new finding of obstructi ve hydrocephalus. COMPARISON: 09/20/2020 3:30 AM FINDINGS: The large region of cytotoxic edema involving the PICA territory of the left cerebellar hemisphere paredes s become more hypodense. The associated mass effect compresses and narrows the fourth ventricle to a greater degree than before. There is also effacement of foramen of Magendie and foramina of Luschka . Again noted is the large basilar artery aneurysm deeply indenting and chronically compressing the lizabeth s and midbrain. 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 The james also has diffusely low attenuation, which is questionable for pontine cytotoxic edema due to questionable acute infarction. There is moderate dilation of the third and lateral ventricles, to a noticeably greater degree than b efore. In addition to the chronic ischemic white matter changes, there is now transependymal migration of CS F. There is a new finding of diffuse sulcal effacement throughout the supratentorial brain, indicating i ncreased intracranial pressure. No acute intra-axial or extra-axial hemorrhage. No midline shift. IMPRESSION: 1) new finding of obstructive hydrocephalus due to interval increase in the posterior fossa mass effe ct due to progression of cytotoxic edema involving the large left cerebellar infarction involving the left PICA (posterior-inferior cerebellar artery) territory, obstructing the fourth ventricle and the fourth ventricular outlets. 2) new finding of diffusely increased intracranial pressure both supratentorially and in the posterio r fossa, and transependymal migration of CSF.
--- NOTE | 2020-09-21 10:20 | PDOC.HOSPP ---
- Subjective Encounter Date: 09/21/20 Encounter Time: 10:15 Subjective: Patient seen and examined bedside today, patient was somnolent this morning, she was lethargic, as per nurse he is like this since last night, her lethargy has significantly increased this morning as well, - Objective Vital Signs & Weight: Vital Signs (12 hours) Temp 09/21/20 07:20 98.2 F 09/21/20 04:00 97.7 F 09/21/20 00:00 97.4 F L Weight Admit Weight 265 lb 14.04 oz Weight 271 lb Most Recent Monitor Data Heart Rate from ECG 83 NIBP 179/94 NIBP BP-Mean 122 Respiration from ECG 22 SpO2 98 I&O: 09/20/20 09/21/20 09/22/20 06:59 06:59 06:59 Intake Total 240 450 Output Total 1140 2810 Balance -900 -2360 Result Diagrams: 09/21/20 01:48 09/21/20 01:48 Additional Labs: Accuchecks 09/21/20 09/20/20 09/20/20 10:07 22:26 11:15 POC Glucose 143 H 155 H 145 H Radiology Reviewed by me: Yes EKG Reviewed by me: Yes (Sinus rhythm) Hospitalist ROS - Review of Systems ROS unobtainable: due to mental status - Medication Medications: Active Medications Generic Name Dose Route Start Last Admin Trade Name Freq PRN Reason Stop Dose Admin Acetaminophen 650 mg 09/19/20 14:00 09/21/20 03:07 Acetaminophen 325 Mg Tab PO 650 mg Q6H PRN Administration Fever > 101 or Headache Heparin Sodium/Dextrose 500 mls @ 0 mls/hr 09/19/20 17:15 09/20/20 21:00 Heparin 25,000 Units/D5w IVPB 500 mls INF HOLLY Administration Protocol Per Protocol Nicardipine HCl 50 mg/ Sodium 250 mls @ 0 mls/hr 09/20/20 18:15 09/21/20 07:46 Chloride IV 250 mls INF HOLLY Administration Protocol As Directed Levetiracetam 500 mg 09/19/20 21:00 09/20/20 20:51 Levetiracetam 500 Mg Tab PO 500 mg BID HOLLY Administration Ondansetron HCl 4 mg 09/19/20 14:00 01/29/21 01:30 Ondansetron Pf 4 Mg/2 Ml Vial IVP 4 mg BIDPRN PRN Administration Nausea/Vomiting Hospitalist Exam Vitals: Vital Signs (12 hours) Temp 09/21/20 07:20 98.2 F 09/21/20 04:00 97.7 F 09/21/20 00:00 97.4 F L Weight Admit Weight 265 lb 14.04 oz Weight 271 lb Most Recent Monitor Data Heart Rate from ECG 83 NIBP 179/94 NIBP BP-Mean 122 Respiration from ECG 22 SpO2 98 General Appearance: NAD, awake alert General - other findings: Patient is sleepy Eye: PERRL, anicteric sclera ENT: normocephalic atraumatic, no oropharyngeal lesions Neck: supple, symmetric, no JVD, no thyromegaly Heart: RRR, no murmur, no gallops, no rubs Respiratory: no wheezes, no rales, no ronchi Gastrointestinal: soft, non-tender, non-distended, normal bowel sounds Gastrointestinal - other findings: Obesity noted Extremities: no clubbing, no edema Skin: normal turgor, no lesions Neurological - other findings: Unable to assess neurologically given lethargic condition Musculoskeletal: normal tone, normal strength Psychiatric: lethargic Hosp A/P (1) Acute encephalopathy Code(s): G93.40 - ENCEPHALOPATHY, UNSPECIFIED Status: Acute (2) Cerebrovascular accident (CVA) due to occlusion of cerebellar artery Code(s): I63.549 - CEREB INFRC DUE TO UNSP OCCLS OR STENOS OF UNSP CEREBLR ART Status: Acute (3) Basilar artery aneurysm Code(s): I72.5 - ANEURYSM OF OTHER PRECEREBRAL ARTERIES Status: Acute (4) Hypertensive urgency Code(s): I16.0 - HYPERTENSIVE URGENCY Status: Acute (5) Morbid obesity with BMI of 50.0-59.9, adult Code(s): E66.01 - MORBID (SEVERE) OBESITY DUE TO EXCESS CALORIES; Z68.43 - BODY MASS INDEX [BMI] 50.0-59.9, ADULT Status: Chronic (6) Hypertension Code(s): I10 - ESSENTIAL (PRIMARY) HYPERTENSION Status: Acute - Plan old records reviewed/req, plan discussed w/ family, DVT proph w/heparin Patient is on heparin drip, Continue Cardene drip We will repeat CT brain for evaluation Add Lipitor 40 mg nightly Check hemoglobin A1c and TSH Discussed with the family member bedside Continue to do neuro check Neurology and neurosurgery following, Medication reviewed and continue provide symptomatic and supportive care
[2020-09-21] MEDS: levETIRAcetam 500 MG TAB PO SCH (10:54)
[2020-09-21 11:09] LABS: Hemoglobin A1c 5.6 % (4.0-6.0)
[2020-09-21 11:17] LABS: INR-International Normal Ratio 0.9; Prothrombin Time 12.5 sec (12.0-14.7)
[2020-09-21 11:18] LABS: PTT 63.8 sec (22.9-36.1)
--- NOTE | 2020-09-21 11:53 | PRG ---
DATE OF SERVICE: 09/21/2020 Ms. Chase is hospital day 2 following a left PICA stroke with a large dolichoectatic and fusiform vertebrobasilar system with intraluminal thrombus. The patient's head CT demonstrates progression in her hypodensity in the left cerebellum. Distribution of the left PICA is consistent with a left PICA stroke. There is effacement of the fourth ventricle and obstructive hydrocephalus. On exam, the patient opens her eyes to noxious stimuli and stares at me. I do not think that she is locked in as she does have some extremity movement, but obviously this is a concern given the clot burden she has. I also do not think she is locked in because she has been therapeutically anticoagulated since yesterday morning at 5 a.m. Her PTT this morning was 69, however, now that she has developed obstructive hydrocephalus, we need to place an external ventricular drain to treat her hydrocephalus. She appears to be obstructing in her airway. She is hypertensive and remains on a nicardipine drip with blood pressure 180/100 this morning. We will plan to place the right frontal external ventricular drain when her PTT normalizes to 36 or less, and we will initiate a rectal aspirin as I feel this will be safer than anticoagulation obviously while an EVD is in place. Goals, indications, risks, alternatives, complications, and the patient's dire situation were discussed in detail with the patient's sister. She wishes that we proceed with placement of external ventricular drain. We discussed all of the risks including temporary and permanent neurologic deficit with or without placement of a drain, but certainly without placement of a drain, the risk of as well along with placement of drain there also and medical and surgical complication. The sister understands and wishes that we proceed. Job ID: [id number]
[2020-09-21] MEDS ORDERED: hydrALAZINE 20 MG/ML VIAL ONE ×5 (13:47→23:07)
[2020-09-21] MEDS: hydrALAZINE 20 MG/ML VIAL SLOW IVP PRN ×6 (13:56→23:07)
[2020-09-21 14:35] LABS: Actual Bicarbonate (HCO3a) 30.5 mEq/L (22-28); Base Excess (BEa) 4.5 mEq/L (-2.0 to +3.0); CO2 Tension 50.5 mmHg (35.0-45.0); Calcium, Ionized (arterial) 1.17 mmol/L (1.12-1.30); Carboxyhemoglobin (COHb) 1.2 gm% (0.0-3.0); Hemoglobin (Hb) 14.8 g/dL (12.0-16.0); O2 Tension (PaO2), arterial 60.2 mmHg (80.0-100.0); Potassium - ABG Lab 3.33 mmol/L (3.70-5.30)
[2020-09-21] MEDS ORDERED: Sodium Chloride For Inhalation 0.9% 3 ML NEB ONE (15:19)
[2020-09-21] MEDS ORDERED: Sodium Chloride 0.9% 40 ML ONE (15:19)
[2020-09-21] MEDS ORDERED: Sodium Chloride 0.9% 30 ML ONE (15:21)
[2020-09-21] MEDS ORDERED: PROPOFOL 20 ML ONE (15:24)
[2020-09-21] MEDS ORDERED: Fentanyl 100 MCG/2 ML VIAL ONE (15:31)
[2020-09-21] MEDS ORDERED: XYLOCAINE 2%-EPI 1:100,000 20 ML VIAL ONE (15:37)
[2020-09-21 16:08] LABS: ALV-art Gradient 76.315 mmHg (0-20); Puncture Site RRA
[2020-09-21] MEDS ORDERED: Fentanyl 100 MCG/2 ML VIAL SLOW IVP SCH (16:30)
[2020-09-21] MEDS: Sodium Chloride 0.9% 1,000 ML IV SCH (17:49)
[2020-09-21 18:01] LABS: Hemoglobin 14.3 g/dL (12.0-16.0); Platelet Count 251 thou/uL (130-400)
--- NOTE | 2020-09-21 20:17 | CON ---
DATE OF CONSULTATION: CONSULTING PHYSICIAN: Hospitalist Team. REASON FOR CONSULTATION: CCU admit with ischemic stroke. HISTORY OF PRESENT ILLNESS: Patient is dysarthric and cannot give me much in the way of history, therefore, what I have is copy from the chart. She is a 55-year-old female who presented to the emergency room on 09/19 with altered mental status. She was having a headache and generalized weakness. She was found to be extremely hypertensive. She was found to have a posterior circulation stroke. She has been started on a heparin drip and told she needs a ventriculostomy. This afternoon, I find her able to verbalize some, but cannot maintain any thought process. She appears dyspneic at rest and I suspect she probably has some underlying ANABELL. PAST MEDICAL HISTORY: Hypertension, osteoarthritis. PAST SURGICAL HISTORY: Leg fracture repair. She has a prosthetic right eye after traumatic injury. FAMILY HISTORY: Remarkable for hypertension. SOCIAL HISTORY: Does not smoke. Does not consume alcohol. REVIEW OF SYSTEMS: Cannot be obtained because of her confusion. MEDICATIONS: Prior to admission, not known. Current inpatient medications reviewed and they are listed in the active medication system section in the chart. She is currently on a nicardipine drip for blood pressure control. PHYSICAL EXAMINATION: VITAL SIGNS: Temperature 98.2, pulse 91, blood pressure 150/72, O2 saturation 94%. She is 5 feet 1 inch, weighs 271 pounds. BMI 51.2. HEENT: Pupils reactive. Oropharynx, class 4 airway. NECK: No adenopathy or JVD. LUNGS: Fairly good air movement. CARDIOVASCULAR: S1 and S2. Regular. ABDOMEN: Soft, nontender, obese. EXTREMITIES: No edema. LABORATORY DATA: White blood cell count 11.7, hematocrit 45.8, and platelet count 235. Sodium 137, potassium 3.9, chloride 104, CO2 of 25, BUN 10, creatinine 0.6, glucose 151. COVID test was negative. CT of the head shows obstructive hydrocephalus in the posterior fossa caused by edema. ASSESSMENT: 1. Posterior circulation stroke. 2. Hydrocephalus which is obstructive. PLAN: We will check a blood gas. If the blood gas looks abnormal, then she needs to be intubated. I think Neurosurgery maybe planning on ventriculostomy, but I am not completely sure of that. Job ID: [id number]
[2020-09-21] MEDS: Aspirin 300 MG Suppository PR SCH (22:09)
[2020-09-21] MEDS: CEFAZOLIN 2 GM in Premix Bag 1 BAG IVPB SCH (22:09)
[2020-09-21] MEDS: Atorvastatin Calcium 40 MG TAB PO SCH (22:10)
[2020-09-22] MEDS: niCARdipine 50 MG in Sodium Chloride 0.9% 250 ML 230 ML IV SCH ×6 (02:36→23:16)
[2020-09-22] MEDS: CEFAZOLIN 2 GM in Premix Bag 1 BAG IVPB SCH ×3 (06:05→21:14)
[2020-09-22] MEDS: Sodium Chloride 0.9% 1,000 ML IV SCH ×2 (06:42→20:13)
[2020-09-22 06:44] LABS: #Lymphocytes 1.5 thou/uL (1.20-3.40); #Monocytes 1.1 thou/uL (0.11-0.59); #Neutrophils 11.9 thou/uL (1.40-6.50); %Basophils 0.2 % (0.0-1.0); %Eosinophils 0.1 % (0.0-10.0); %Lymphocytes 10.2 % (21.0-51.0); %Monocytes 7.4 % (0.0-10.0); %Neutrophils 82.1 % (42.0-75.0); Hemoglobin 14.1 g/dL (12.0-16.0); Mean Corpuscular HGB CONC 32.3 g/dL (32.0-36.0); Mean Corpuscular Hemoglobin 30.5 pg (27.0-31.0); Mean Corpuscular Volume 94.6 fL (78.0-98.0); Mean Platelet Volume 7.6 fL (7.4-10.4); Platelet Count 267 thou/uL (130-400); RBC Distribution Width 12.1 % (11.5-14.5); Red Blood Cell (RBC) Count 4.62 mill/uL (4.20-5.40); White Blood Cell (WBC) Count 14.4 thou/uL (4.8-10.8)
[2020-09-22 07:02] LABS: Anion Gap 10 mmol/L (10-20); BUN (Urea Nitrogen) 15 mg/dL (9.8-20.1); Calc. Creatinine Clearance 184 mL/min (70-130); Calcium 8.2 mg/dL (7.8-10.44); Carbon Dioxide 29 mmol/L (22-29); Chloride 105 mmol/L (98-107); Glucose 140 mg/dL (70-105); Potassium 3.3 mmol/L (3.5-5.1); Sodium 141 mmol/L (136-145)
--- NOTE | 2020-09-22 07:26 | CT ---
PRELIMINARY REPORT/[facility]/AFTER HOURS PROCEDURE CT HEAD WITHOUT INTRAVENOUS CONTRAST: CLINICAL HISTORY: Status post right frontal placement. TECHNIQUE: Axial computed tomography images of the head/brain without intravenous contrast. COMPARISON: CT brain without contrast from 09/20/2020 at 3:[address] [employer] brain without contrast from 09/19/2020 at 12:33 p.m. [employer]. FINDINGS: BRAIN AND VENTRICLES: New since prior examination is a right frontoparietal ventricular drainage cath eter which enters the posterior body of the right lateral ventricle with tip terminating medial to the choroid plexus in the right ventricular atrium. No hydrocephalus. Lateral ventricles are smaller than on the pre-drainage procedure. An 8 mm hemorrhagic is present in the right centrum semiovale adjacent to the drainage catheter. No associated mass-effect. No evidence of intraventricular hemorr lucius. Re-demonstrated is an evolving evolution of an acute bland stroke in the left posterior fossa with geographic hypoattenuation throughout the left cerebellar hemisphere. Cerebellar edema now mildl y effaces and displaces the fourth ventricle 3.5 mm to the right of the midline. No acute posterior fossa hemorrhage. Unchanged severe dolichoectasia and/or aneurysmal dilatation of the left vertebroba silar arteries. ORBITS: The orbits are unremarkable. SINUSES AND MASTOIDS: The paranasal sinuses and mastoid air cells are clear. SOFT TISSUES: No significant facial or scalp soft tissue swelling evident. No radiopaque foreign body is seen. BONES: No acute skull fracture. IMPRESSION: 1. New right ventriculostomy catheter. Catheter tip terminates in the right ventricular atrium media l to the choroid plexus. No evidence of hydrocephalus. 2. Small, 8 mm pericatheter hemorrhagic focus in the right centrum semiovale. 3. Evolving bland infarct of the left cerebellar hemisphere. Brain edema now effaces the fourth vent ricle and displaces it 3.5 cm to the right of midline. 4. Unchanged severe vertebrobasilar dolichoectasia-aneurysmal dilatation. ELECTRONICALLY SIGNED BY: Cristopher Crabtree M.D. Sep 22, 2020 2:37:48 AM [employer] TE[employer] This report is intended for review by the ordering physician only, in accordance of law. If you recei ve this report in error, please call [facility] at [phone]. FINAL REPORT CT BRAIN WITHOUT CONTRAST: EMERGENCY AFTER HOURS EXAM 09/22/2020 2:09 a.m. FINDINGS: Placement of a right ventriculostomy catheter with a small amount of pericatheter hemorrhage in the r ight centrum semiovale region. Extensive low attenuation changes in the left cerebellar hemisphere with mass effect. Aneurysmal dilatation of the basilar artery. Improvement in the previously noted hy drocephalus when compared to the 09/21/2020 study. This report agrees with the preliminary report. CODE QA Transcribed Date/Time: 09/22/2020 9:50 AM
[2020-09-22 07:28] LABS: Actual Bicarbonate (HCO3a) 30.8 mEq/L (22-28); Base Excess (BEa) 4.7 mEq/L (-2.0 to +3.0); CO2 Tension 51.2 mmHg (35.0-45.0); Calcium, Ionized (arterial) 1.15 mmol/L (1.12-1.30); Carboxyhemoglobin (COHb) 1.2 gm% (0.0-3.0); Hemoglobin (Hb) 14.8 g/dL (12.0-16.0)
[2020-09-22] MEDS ORDERED: Electrolyte Replacement Protocol 1 EACH FS SCH (07:55)
--- NOTE | 2020-09-22 08:20 | PRG ---
DATE OF SERVICE: 09/22/2020 30 minutes of critical care time. SUBJECTIVE: I was called to see this patient emergently this morning because she was having respiratory distress. She had a ventriculostomy placed last night by Neurosurgery, apparently was mentating much better after that. This morning, she was having hypopnea/apnea episodes. I placed a nasal trumpet down her left nostril, this improved things. Then we placed her on BiPAP, which has helped significantly. She is awake and able to follow commands. OBJECTIVE: VITAL SIGNS: Temperature 98.9, pulse 110, blood pressure 157/96, O2 saturation 94%. Intake 2544, output 1292. HEENT: Remarkable for the ventriculostomy. NECK: No JVD. LUNGS: Good air movement. CARDIOVASCULAR: S1 and S2. Regular. ABDOMEN: Obese, soft, nontender. EXTREMITIES: No edema. LABORATORY DATA: White blood cell count 14, hematocrit 43.6, and platelet count 267. PTT 26.7. ABG showed a pH of 7.4, pCO2 of 50, pO2 of 55. Sodium 141, potassium 3.3, chloride 105, CO2 of 29, BUN 15, creatinine 0.7, glucose 140. ASSESSMENT: 1. Obstructive sleep apnea/obesity hypoventilation syndrome. 2. Posterior circulation stroke with obstructive hydrocephalus - now status post ventriculostomy. 3. Hypokalemia. PLAN: We will try BiPAP, although I am not convinced that she will not eventually progress to the point where she needs to be intubated. Labs will be checked daily. We will go ahead and replace her potassium. At some point her nutritional needs will need to be addressed. Job ID: [id number]
[2020-09-22] MEDS: hydrALAZINE 20 MG/ML VIAL SLOW IVP PRN (09:18)
[2020-09-22 09:58] LABS: O2 Tension (PaO2), arterial 52.2 mmHg (80.0-100.0); Puncture Site RBA
[2020-09-22] MEDS ORDERED: Promethazine HCl 12.5 MG in Sodium Chloride 0.9% 50 ML IVPB PRN (10:37)
--- NOTE | 2020-09-22 10:53 | PDOC.HOSPP ---
- Subjective Encounter Date: 09/22/20 Encounter Time: 10:20 Subjective: Patient seen and examined. Patient is on BiPAP, family member present bedside, yesterday external ventricular drain was placed, - Objective Vital Signs & Weight: Vital Signs (12 hours) Temp Pulse BP Pulse Ox 09/22/20 09:18 103 H 190/101 H 09/22/20 07:46 103 H 09/22/20 07:10 95 09/22/20 04:00 98.9 F 09/22/20 00:00 98.9 F 09/21/20 23:07 95 183/89 H Weight Admit Weight 265 lb 14.04 oz Weight 276 lb 3.827 oz Most Recent Monitor Data Heart Rate from ECG 98 NIBP 179/102 NIBP BP-Mean 127 Respiration from ECG 19 SpO2 98 I&O: 09/21/20 09/22/20 09/23/20 06:59 06:59 06:59 Intake Total 450 2544 Output Total 2810 1292 13 Balance -2360 1252 -13 Result Diagrams: 09/22/20 06:29 09/22/20 06:29 Additional Labs: Accuchecks 09/22/20 09/21/20 09/21/20 05:00 22:00 17:26 POC Glucose 126 H 119 H 141 H Radiology Reviewed by me: Yes (CT brain reviewed ) EKG Reviewed by me: Yes (Normal sinus rhythm) Hospitalist ROS - Review of Systems ROS unobtainable: due to mental status - Medication Medications: Active Medications Generic Name Dose Route Start Last Admin Trade Name Freq PRN Reason Stop Dose Admin Acetaminophen 650 mg 09/19/20 14:00 09/21/20 03:07 Acetaminophen 325 Mg Tab PO 650 mg Q6H PRN Administration Fever > 101 or Headache Aspirin 300 mg 09/21/20 21:00 09/21/20 22:09 Aspirin 300 Mg Suppository VA 300 mg HS HOLLY Administration Atorvastatin Calcium 40 mg 09/21/20 21:00 09/21/20 22:10 Atorvastatin Calcium 40 Mg Tab PO Not Given HS HOLLY Hydralazine HCl 10 mg 09/21/20 13:39 09/22/20 09:18 Hydralazine 20 Mg/Ml Vial SLOW IVP 10 mg Q15MIN PRN Administration SBP >180 mm Hg Nicardipine HCl 50 mg/ Sodium 250 mls @ 0 mls/hr 09/20/20 18:15 09/22/20 10:31 Chloride IV 250 mls INF HOLLY Administration Protocol As Directed Cefazolin Sodium/Dextrose 2 gm 50 mls @ 100 mls/hr 09/21/20 22:00 09/22/20 06:05 / Device IVPB 50 mls Q8HR HOLLY Administration Sodium Chloride 1,000 mls @ 75 mls/hr 09/21/20 16:45 09/22/20 06:42 Normal Saline 0.9% IV 1,000 mls .[id number] HOLLY Administration Hospitalist Exam Vitals: Vital Signs (12 hours) Temp Pulse BP Pulse Ox 09/22/20 09:18 103 H 190/101 H 09/22/20 07:46 103 H 09/22/20 07:10 95 09/22/20 04:00 98.9 F 09/22/20 00:00 98.9 F 09/21/20 23:07 95 183/89 H Weight Admit Weight 265 lb 14.04 oz Weight 276 lb 3.827 oz Most Recent Monitor Data Heart Rate from ECG 98 NIBP 179/102 NIBP BP-Mean 127 Respiration from ECG 19 SpO2 98 General Appearance: NAD General - other findings: On BiPAP Eye: PERRL ENT: normocephalic atraumatic ENT - other findings: External ventricular drain in place Neck: symmetric, no JVD Heart: RRR, no murmur, no gallops, no rubs Respiratory: no wheezes, no rales, no ronchi Gastrointestinal: soft, non-distended, normal bowel sounds Gastrointestinal - other findings: Obesity noted, Extremities: no cyanosis, no clubbing, no edema Skin: normal turgor, no lesions Hosp A/P (1) Acute encephalopathy Code(s): G93.40 - ENCEPHALOPATHY, UNSPECIFIED Status: Acute (2) Cerebrovascular accident (CVA) due to occlusion of cerebellar artery Code(s): I63.549 - CEREB INFRC DUE TO UNSP OCCLS OR STENOS OF UNSP CEREBLR ART Status: Acute (3) Hydrocephalus Code(s): G91.9 - HYDROCEPHALUS, UNSPECIFIED Status: Acute (4) Basilar artery aneurysm Code(s): I72.5 - ANEURYSM OF OTHER PRECEREBRAL ARTERIES Status: Acute (5) Hypertensive urgency Code(s): I16.0 - HYPERTENSIVE URGENCY Status: Acute (6) Morbid obesity with BMI of 50.0-59.9, adult Code(s): E66.01 - MORBID (SEVERE) OBESITY DUE TO EXCESS CALORIES; Z68.43 - BODY MASS INDEX [BMI] 50.0-59.9, ADULT Status: Chronic (7) Hypertension Code(s): I10 - ESSENTIAL (PRIMARY) HYPERTENSION Status: Acute (8) Obesity hypoventilation syndrome Code(s): E66.2 - MORBID (SEVERE) OBESITY WITH ALVEOLAR HYPOVENTILATION Status: Chronic (9) Hypokalemia Code(s): E87.6 - HYPOKALEMIA Status: Acute - Plan old records reviewed/req, plan discussed w/ family Patient is on BiPAP We will ask neurosurgeon if they are okay with a Dobbhoff tube then was put to Dobbhoff tube for medication and nutrition, Discussed with the patient's family member about current condition and prognosis bedside, Potassium replaced Neurosurgeon following,
--- NOTE | 2020-09-22 12:13 | PRG ---
DATE OF SERVICE: 09/22/2020 SUBJECTIVE: Ms. 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 We did stop her IV heparin yesterday to place an external ventricular drain. This was placed. Her ICP has been now normalized without put out approximately 8 to 10 mL/h with an EVD open at 10 cm of water. Her ventricular system is more decompressed now as is her reduction in transependymal flow satisfactory. On exam, she has her eyes open, but she is on noninvasive ventilation BiPAP for sleep apnea. She follows commands on the right side. We will add Levaquin as she was found to have urinary tract infection to be already utilized Ancef for the external ventricular drain. This will be a 3-day course of Levaquin. Her sodium is satisfactory. Job ID: [id number]
[2020-09-22] MEDS: Labetalol HCl 100 MG/20 ML VIAL SLOW IVP PRN ×2 (12:16→22:23)
[2020-09-22] MEDS ORDERED: Potassium Chloride 40 MEQ in Sodium Chloride 0.9% 250 ML 250 ML IVPB SCH (12:45)
[2020-09-22] MEDS: Aspirin 300 MG Suppository PR SCH (21:15)
[2020-09-22] MEDS: Atorvastatin Calcium 40 MG TAB PO SCH (21:15)
[2020-09-23] MEDS: niCARdipine 50 MG in Sodium Chloride 0.9% 250 ML 230 ML IV SCH ×5 (03:08→21:58)
[2020-09-23 03:56] LABS: #Lymphocytes 1.7 thou/uL (1.20-3.40); #Monocytes 1.1 thou/uL (0.11-0.59); #Neutrophils 11.6 thou/uL (1.40-6.50); %Eosinophils 0.1 % (0.0-10.0); %Lymphocytes 11.8 % (21.0-51.0); %Monocytes 7.5 % (0.0-10.0); %Neutrophils 80.6 % (42.0-75.0); Hemoglobin 13.9 g/dL (12.0-16.0); Mean Corpuscular HGB CONC 33.8 g/dL (32.0-36.0); Mean Corpuscular Hemoglobin 32.6 pg (27.0-31.0); Mean Corpuscular Volume 96.5 fL (78.0-98.0); Mean Platelet Volume 7.6 fL (7.4-10.4); Platelet Count 241 thou/uL (130-400); Red Blood Cell (RBC) Count 4.26 mill/uL (4.20-5.40); White Blood Cell (WBC) Count 14.5 thou/uL (4.8-10.8)
[2020-09-23 04:13] LABS: Anion Gap 13 mmol/L (10-20); BUN (Urea Nitrogen) 18 mg/dL (9.8-20.1); Calc. Creatinine Clearance 187 mL/min (70-130); Calcium 8.6 mg/dL (7.8-10.44); Carbon Dioxide 28 mmol/L (22-29); Chloride 106 mmol/L (98-107); Glucose 129 mg/dL (70-105); Potassium 3.7 mmol/L (3.5-5.1); Sodium 143 mmol/L (136-145)
[2020-09-23] MEDS: CEFAZOLIN 2 GM in Premix Bag 1 BAG IVPB SCH ×3 (06:37→22:23)
--- NOTE | 2020-09-23 07:09 | PRG ---
DATE OF SERVICE: 09/23/2020 Ms. Chase is in ICU room this morning. An EVD has been placed over the weekend for hydrocephalus related to inferior cerebellar swelling on the left side from her infarct. No events have been reported. : When I see, Ms. Chase, her blood pressures in the 160s. It has ranged in the 150s to 170s. Maximum temperature was 99.1 degrees Fahrenheit in the last 24 hours. Says Rena is on her BiPAP. NEUROLOGIC: When I say her name, she opens her eyes on both sides. She follows commands on both sides. She holds up her thumb. She wiggles her toes. Undoubtedly, she has dysmetria. She had previously involving the left side of the body. Sodium is 143. White blood cell count of 14.5. I am optimistic that in the next 5 to 7 days, we can slowly wean the EVD as the swelling recedes. If still dependent on the EVD towards the end of the week, we may start using mannitol to increase the speed of the resolution of her swelling. I do not think she is going to need a permanent shunt. Once the EVD is out, we can look for placement in rehabilitation. Job ID: [id number] [facility]
[2020-09-23] MEDS ORDERED: Metoclopramide HCl 10 MG/2 ML VIAL IVP PRN (09:28)
[2020-09-23] MEDS: Sodium Chloride 0.9% 1,000 ML IV SCH ×2 (09:42→18:27)
[2020-09-23] MEDS ORDERED: Pantoprazole 40 MG VIAL IVP SCH (09:45)
--- NOTE | 2020-09-23 11:16 | PDOC.HOSPP ---
- Subjective Encounter Date: 09/23/20 Encounter Time: 09:30 Subjective: Patient is on BiPAP, patient is following simple command, today she has coffee- ground through NG tube, - Objective Vital Signs & Weight: Vital Signs (12 hours) Temp Pulse 09/23/20 07:05 94 09/23/20 05:00 98.8 F 09/23/20 02:26 93 Weight Admit Weight 265 lb 14.04 oz Weight 272 lb 4.334 oz Most Recent Monitor Data Heart Rate from ECG 88 NIBP 170/92 NIBP BP-Mean 118 Respiration from ECG 17 SpO2 96 I&O: 09/22/20 09/23/20 09/24/20 06:59 06:59 06:59 Intake Total 2544 3323 Output Total 1292 2876 72 Balance 1252 447 -72 Result Diagrams: 09/23/20 03:47 09/23/20 03:47 Additional Labs: Accuchecks 09/23/20 09/22/20 09/22/20 10:43 22:13 11:29 POC Glucose 125 H 128 H 131 H 09/20/20 16:16 POC Glucose 114 H EKG Reviewed by me: Yes (Normal sinus rhythm) Hospitalist ROS - Review of Systems ROS unobtainable: due to mental status Respiratory: reports: shortness of breath. denies: cough, dry, hemoptysis, SOB with excertion, pleuritic pain, sputum, wheezing, other Cardiovascular: denies: chest pain, palpitations, orthopnea, paroxysmal noc. dyspnea, edema, light headedness, other Gastrointestinal: denies: nausea, vomiting, abdominal pain, diarrhea, constipation, melena, hematochezia, other Genitourinary: denies: dysuria, frequency, incontinence, hematuria, retention, other Musculoskeletal: denies: neck pain, shoulder pain, arm pain, back pain, hand pain, leg pain, foot pain, other - Medication Medications: Active Medications Generic Name Dose Route Start Last Admin Trade Name Freq PRN Reason Stop Dose Admin Acetaminophen 650 mg 09/19/20 14:00 09/21/20 03:07 Acetaminophen 325 Mg Tab PO 650 mg Q6H PRN Administration Fever > 101 or Headache Aspirin 300 mg 09/21/20 21:00 09/22/20 21:15 Aspirin 300 Mg Suppository TN 300 mg HS HOLLY Administration Atorvastatin Calcium 40 mg 09/21/20 21:00 09/22/20 21:15 Atorvastatin Calcium 40 Mg Tab PO 40 mg HS HOLLY Administration Hydralazine HCl 10 mg 09/21/20 13:39 09/22/20 09:18 Hydralazine 20 Mg/Ml Vial SLOW IVP 10 mg Q15MIN PRN Administration SBP >180 mm Hg Nicardipine HCl 50 mg/ Sodium 250 mls @ 0 mls/hr 09/20/20 18:15 09/23/20 06:38 Chloride IV 250 mls INF HOLLY Administration Protocol As Directed Cefazolin Sodium/Dextrose 2 gm 50 mls @ 100 mls/hr 09/21/20 22:00 09/23/20 06:37 / Device IVPB 50 mls Q8HR HOLLY Administration Sodium Chloride 1,000 mls @ 75 mls/hr 09/21/20 16:45 09/23/20 09:42 Normal Saline 0.9% IV Not Given .[id number] HOLLY Levofloxacin 250 mg/ Device 50 mls @ 100 mls/hr 09/22/20 10:45 09/23/20 09:56 IVPB 09/24/20 11:14 50 mls Q24HR HOLLY Administration Labetalol HCl 20 mg 09/21/20 13:41 09/22/20 22:23 Labetalol Hcl 100 Mg/20 Ml Vial SLOW IVP 20 mg Q4H PRN Administration SBP > 180 and HR >100 Pantoprazole Sodium 40 mg 09/23/20 09:45 09/23/20 09:52 Pantoprazole 40 Mg Vial IVP 09/23/20 12:00 40 mg NOW HOLLY Administration Hospitalist Exam Vitals: Vital Signs (12 hours) Temp Pulse 09/23/20 07:05 94 09/23/20 05:00 98.8 F 09/23/20 02:26 93 Weight Admit Weight 265 lb 14.04 oz Weight 272 lb 4.334 oz Most Recent Monitor Data Heart Rate from ECG 88 NIBP 170/92 NIBP BP-Mean 118 Respiration from ECG 17 SpO2 96 General Appearance: NAD, ill appearing Eye: PERRL, anicteric sclera ENT: normocephalic atraumatic, no oropharyngeal lesions ENT - other findings: NG tube in place, NG tube draining coffee-ground emesis Neck: supple, symmetric Heart: RRR, no murmur, no gallops, no rubs Respiratory: no wheezes, no rales, no ronchi Respiratory - other findings: Air entry reduced at base Gastrointestinal: soft, non-tender, non-distended, normal bowel sounds Gastrointestinal - other findings: Obesity noted Extremities: no clubbing, 1+ LE edema Skin: normal turgor, no lesions Psychiatric: normal affect Hosp A/P (1) Acute encephalopathy Code(s): G93.40 - ENCEPHALOPATHY, UNSPECIFIED Status: Acute Plan: Due to CVA and hydrocephalus (2) Cerebrovascular accident (CVA) due to occlusion of cerebellar artery Code(s): I63.549 - CEREB INFRC DUE TO UNSP OCCLS OR STENOS OF UNSP CEREBLR ART Status: Acute (3) Hydrocephalus Code(s): G91.9 - HYDROCEPHALUS, UNSPECIFIED Status: Acute Plan: S/p external ventricular drain placement (4) Hypertensive urgency Code(s): I16.0 - HYPERTENSIVE URGENCY Status: Acute (5) Basilar artery aneurysm Code(s): I72.5 - ANEURYSM OF OTHER PRECEREBRAL ARTERIES Status: Chronic (6) Morbid obesity with BMI of 50.0-59.9, adult Code(s): E66.01 - MORBID (SEVERE) OBESITY DUE TO EXCESS CALORIES; Z68.43 - BODY MASS INDEX [BMI] 50.0-59.9, ADULT Status: Chronic (7) Hypertension Code(s): I10 - ESSENTIAL (PRIMARY) HYPERTENSION Status: Chronic (8) Obesity hypoventilation syndrome Code(s): E66.2 - MORBID (SEVERE) OBESITY WITH ALVEOLAR HYPOVENTILATION Status: Chronic (9) Hypokalemia Code(s): E87.6 - HYPOKALEMIA Status: Resolved (10) Coffee ground emesis Code(s): K92.0 - HEMATEMESIS Status: Acute - Plan old records reviewed/req, plan discussed w/ family, DVT proph w/SCDs Patient is on BiPAP, monitor for any respiratory deterioration, in that case patient may need intubation., Pulmonology following Patient has coffee-ground emesis likely related with stress ulceration, today Protonix 40 mg IV twice daily initiated, at this point we will closely monitor her hemodynamics, if she has ongoing bleeding then will consider GI evaluation, at this point because of her acute CVA and external ventricular drain patient is not a good candidate for endoscopic evaluation, Medication via NG tube Continue external ventricular drain as per neurosurgeon, neuro monitoring, neurosurgeon following Discussed with the patient's sister bedside
--- NOTE | 2020-09-23 11:31 | CT ---
EXAM: CT ANGIOGRAM OF THE HEAD AND NECK INDICATION: Dizziness. Weakness. Evidence of aneurysms on noncontrast head CT. COMPARISON: None. CORRELATION: Noncontrast head CT 09/19/2020. TECHNIQUE: CT angiogram of the head and neck are performed in the axial plane. Three-dimensional reformatted marie ges are submitted for interpretation. FINDINGS: CTA OF THE HEAD WITH AND WITHOUT CONTRAST: POSTCONTRAST CT OF BRAIN: Pathologic enhancement: No pathologic enhancement the brain. There are chronic small vessel ischemic changes of the white matter, greater than expected for patient's age POSTCONTRAST SOFT TISSUE NECK CT: Aerodigestive tract:Aerodigestive tract is patent. No mucosal abnormality. Limited evaluation of the oral cavity due to dental amalgam artifact. Epiglottis has a normal caliber. Preepiglottic fat is preserved. Sinuses: Adequate aeration of the paranasal sinuses and mastoid air cells.. Orbits: Right globe prosthesis. Unremarkable left orbit. Asymmetrically prominent right ophthalmic ve in. Salivary glands:Appropriate attenuation of the parotid and submandibular glands. Thyroid gland: Appropriate attenuation of the thyroid gland. Lymph nodes: No evidence of lymphadenopathy by size criteria. Paraspinal muscles: Symmetric attenuation of the sternocleidomastoid muscles. Appropriate attenuation of the paraspinal muscles. Cervical spine:Vertebral body height is maintained. No fracture. No significant central canal stenosi s or significant neural foraminal narrowing. Limited evaluation by technique. Upper mediastinum and lung apices: Chronic changes of the lung parenchyma CTA OF THE NECK WITH CONTRAST: Aorta: Appropriate enhancement and luminal diameter Right carotid artery: Appropriate enhancement and luminal diameter of the carotid artery. No signific ant stenosis based upon NASCET criteria. Medial deviation of the distal common carotid artery and proximal internal carotid artery Left carotid: Appropriate enhancement and luminal diameter of the carotid artery. No significant sten osis based upon NASCET criteria. Medial deviation of the distal common carotid artery and proximal internal carotid artery. Subclavian arteries:Symmetric and patent Vertebral arteries:Patent throughout their course in the neck CTA OF THE BRAIN: Intracranial internal carotid arteries:Appropriate enhancement and luminal diameter. Atherosclerosis without significant luminal narrowing involving the paraclinoid segments. Anterior circulation: Appropriate enhancement and luminal diameter the A1 segments, proximal A2 segme nts, M1 segments and proximal MCA branches. There does appear to be a fusiform dilatation involving a proximal right M2 segment in the inferior aspect of the right sylvian fissure (coronal images [id number] [id number]). Intracranial vertebral arteries: There is fusiform dilatation of the distal right vertebral artery, j ust prior to its junction with the left vertebral artery. There is saccular dilatation of the distal left vertebral artery right before its junction with the right vertebral artery. Posterior circulation: There is ectasia and fusiform dilatation of the basilar artery. There is a lar ge saccular aneurysm at the level of distal basilar artery with partial thrombosis. Overall the aneurysm measures 1.9 cm mediolateral by 1.7 cm anterior posterior. The thrombosed component measures 1.2 x 1.5 cm. There does appear to be an aneurysm at the tip of the basilar artery. Visualized right P1 segment has appropriate enhancement and luminal diameter. There is short segment severe sten osis involving the left P1 segment. IMPRESSION: 1. Extensive aneurysm involving the posterior circulation as described above. Fusiform aneurysm invol ving the right vertebral artery and basilar artery. There is a saccular aneurysm in the distal right vertebral artery with associated partial thrombosis. Saccular aneurysm in the distal left verte bral artery 2. Short segment high-grade stenosis involving the left P1 segment. 3. Fusiform aneurysm involving the right M2 segment. 4. Asymmetric prominence of the right ophthalmic vein. Correlate for possible small right-sided willy nous carotid fistula. Results of the study conveyed to Dr. Brizuela 09/19/2020 at 1:08 PM. Code CR Transcribed Date/Time: 09/23/2020 11:30 AM
[2020-09-23 12:01] LABS: Actual Bicarbonate (HCO3a) 30.9 mEq/L (22-28); Base Excess (BEa) 5.7 mEq/L (-2.0 to +3.0); CO2 Tension 47.1 mmHg (35.0-45.0); Calcium, Ionized (arterial) 1.17 mmol/L (1.12-1.30); Carboxyhemoglobin (COHb) 1.1 gm% (0.0-3.0); Hemoglobin (Hb) 14.6 g/dL (12.0-16.0); O2 Tension (PaO2), arterial 67.1 mmHg (80.0-100.0); Potassium - ABG Lab 3.36 mmol/L (3.70-5.30); pH, Arterial 7.44 (7.35-7.45)
[2020-09-23 12:03] LABS: Puncture Site LRA
[2020-09-23 12:09] LABS: ALV-art Gradient 73.665 mmHg (0-20)
--- NOTE | 2020-09-23 12:57 | PDOC.NEUPN ---
- Subjective Encounter Date: 09/23/20 Subjective: Ms. Chase seems to be improved since initial presentation and is able to communicate with writing. Sister at bedside. - Objective Vital Signs & Weight: Vital Signs (12 hours) Temp Pulse Pulse Ox 09/23/20 08:00 98 09/23/20 07:05 94 09/23/20 05:00 98.8 F 09/23/20 02:26 93 Weight Admit Weight 265 lb 14.04 oz Weight 272 lb 4.334 oz Most Recent Monitor Data Heart Rate from ECG 96 NIBP 175/91 NIBP BP-Mean 119 Respiration from ECG 16 SpO2 98 I&O: 09/22/20 09/23/20 09/24/20 06:59 06:59 06:59 Intake Total 2544 3323 Output Total 1292 2876 201 Balance 1252 447 -201 Result Diagrams: 09/23/20 03:47 09/23/20 03:47 Additional Labs: Accuchecks 09/23/20 09/22/20 09/22/20 10:43 22:13 11:29 POC Glucose 125 H 128 H 131 H 09/20/20 16:16 POC Glucose 114 H Radiology Reviewed by me: Yes EKG Reviewed by me: Yes ROS - Review of Systems ROS unobtainable: due to mental status (Patient on BiPAP) - Medication Medications: Active Medications Generic Name Dose Route Start Last Admin Trade Name Freq PRN Reason Stop Dose Admin Acetaminophen 650 mg 09/19/20 14:00 09/21/20 03:07 Acetaminophen 325 Mg Tab PO 650 mg Q6H PRN Administration Fever > 101 or Headache Aspirin 300 mg 09/21/20 21:00 09/22/20 21:15 Aspirin [address] 300 mg HS HOLLY Administration Atorvastatin Calcium 40 mg 09/21/20 21:00 09/22/20 21:15 Atorvastatin Calcium 40 Mg Tab PO 40 mg HS HOLLY Administration Hydralazine HCl 10 mg 09/21/20 13:39 09/22/20 09:18 Hydralazine 20 Mg/Ml Vial SLOW IVP 10 mg Q15MIN PRN Administration SBP >180 mm Hg Nicardipine HCl 50 mg/ Sodium 250 mls @ 0 mls/hr 09/20/20 18:15 09/23/20 06:38 Chloride IV 250 mls INF HOLLY Administration Protocol As Directed Cefazolin Sodium/Dextrose 2 gm 50 mls @ 100 mls/hr 09/21/20 22:00 09/23/20 06:37 / Device IVPB 50 mls Q8HR HOLLY Administration Sodium Chloride 1,000 mls @ 75 mls/hr 09/21/20 16:45 09/23/20 09:42 Normal Saline 0.9% IV Not Given .[id number] HOLLY Levofloxacin 250 mg/ Device 50 mls @ 100 mls/hr 09/22/20 10:45 09/23/20 09:56 IVPB 09/24/20 11:14 50 mls Q24HR HOLLY Administration Labetalol HCl 20 mg 09/21/20 13:41 09/22/20 22:23 Labetalol Hcl 100 Mg/20 Ml Vial SLOW IVP 20 mg Q4H PRN Administration SBP > 180 and HR >100 - Exam General Appearance: awake alert Eye: PERRL ENT: normocephalic atraumatic Neck: supple Respiratory: CTAB Cardiovascular: RRR Gastrointestinal: soft Extremities: no cyanosis Skin: normal turgor Neurological: no new deficit, facial droop, hemiplegia Musculoskeletal: no muscle wasting (On BiPAP, aphasic) Results - Labs Result Diagrams: 09/23/20 03:47 09/23/20 03:47 Lab results: WBC 14.5 thou/uL (4.8-10.8) H 09/23/20 03:47 Hgb 13.9 g/dL (12.0-16.0) 09/23/20 03:47 Hct 41.1 % (36.0-47.0) 09/23/20 03:47 MCV 96.5 fL (78.0-98.0) 09/23/20 03:47 Plt Count 241 thou/uL (130-400) 09/23/20 03:47 Neutrophils % 80.6 % (42.0-75.0) H 09/23/20 03:47 Band Neuts % (Manual) 23 % (5-11) H 09/19/20 17:28 ABG pH 7.44 (7.35-7.45) 09/23/20 11:55 ABG pCO2 47.1 mmHg (35.0-45.0) H 09/23/20 11:55 ABG pO2 67.1 mmHg (80.0-100.0) L 09/23/20 11:55 Sodium 143 mmol/L (136-145) 09/23/20 03:47 Potassium 3.7 mmol/L (3.5-5.1) 09/23/20 03:47 Chloride 106 mmol/L (98-107) 09/23/20 03:47 Carbon Dioxide 28 mmol/L (22-29) 09/23/20 03:47 BUN 18 mg/dL (9.8-20.1) 09/23/20 03:47 Creatinine 0.69 mg/dL (0.6-1.1) 09/23/20 03:47 Glucose 129 mg/dL (70-105) H 09/23/20 03:47 Lactic Acid 1.0 mmol/L (0.5-2.2) 09/21/20 10:43 Calcium 8.6 mg/dL (7.8-10.44) 09/23/20 03:47 Total Bilirubin 0.5 mg/dL (0.2-1.2) 09/19/20 11:43 AST 16 U/L (5-34) 09/19/20 11:43 ALT 19 U/L (8-55) 09/19/20 11:43 Alkaline Phosphatase 107 U/L (40-110) 09/19/20 11:43 Creatine Kinase 266 U/L (29-168) H 09/19/20 11:43 Troponin I Less than 0.010 ng/mL (< 0.028) 09/19/20 11:43 B-Natriuretic Peptide 31.5 pg/mL (0-100) 09/19/20 11:48 Serum Total Protein 8.0 g/dL (6.0-8.3) 09/19/20 11:43 Albumin 4.1 g/dL (3.5-5.0) 09/19/20 11:43 Lipase 11 U/L (8-78) 09/19/20 11:43 Urine Ketones Negative mg/dL (Negative) 09/19/20 09:20 Urine Blood 3+ (Negative) A 09/19/20 09:20 Urine Nitrite Negative (Negative) 09/19/20 09:20 Ur Leukocyte Esterase 75 Fouzia/uL (Negative) A 09/19/20 09:20 Urine RBC Greater than 50 HPF (0-3) A 09/19/20 09:20 Urine WBC 7-10 HPF (0-3) A 09/19/20 09:20 Ur Squamous Epith Cells 0-3 HPF (0-3) 09/19/20 09:20 Urine Bacteria 1+ HPF (None Seen) A 09/19/20 09:20 - Radiology Interpretation MRI - head Additional Comment: MRI of the brain was consistent with acute infarction in the posterior circulation. Cerebellar stroke. PN A/P (1) Cerebrovascular accident (CVA) due to occlusion of cerebellar artery Code(s): I63.549 - CEREB INFRC DUE TO UNSP OCCLS OR STENOS OF UNSP CEREBLR ART Status: Acute (2) Acute encephalopathy Code(s): G93.40 - ENCEPHALOPATHY, UNSPECIFIED Status: Acute (3) Hydrocephalus Code(s): G91.9 - HYDROCEPHALUS, UNSPECIFIED Status: Acute (4) Hypertensive urgency Code(s): I16.0 - HYPERTENSIVE URGENCY Status: Acute (5) Leukocytosis Code(s): D72.829 - ELEVATED WHITE BLOOD CELL COUNT, UNSPECIFIED Status: Acute (6) Thoracic aortic ectasia Code(s): I77.810 - THORACIC AORTIC ECTASIA Status: Acute (7) Basilar artery aneurysm Code(s): I72.5 - ANEURYSM OF OTHER PRECEREBRAL ARTERIES Status: Chronic (8) Hypertension Code(s): I10 - ESSENTIAL (PRIMARY) HYPERTENSION Status: Chronic (9) Morbid obesity with BMI of 50.0-59.9, adult Code(s): E66.01 - MORBID (SEVERE) OBESITY DUE TO EXCESS CALORIES; Z68.43 - BODY MASS INDEX [BMI] 50.0-59.9, ADULT Status: Chronic - Plan Daily Plan: plan discussed w/ family (Sister at bedside), PT/OT, speech therapy, DVT proph w/SCDs Ms. Chase is a 55-year-old female with history significant for morbid obesity and hypertension presented with acute encephalopathy in the setting of hypertensive emergency. Her initial presentation was nausea, vomiting, headache and generalized weakness associated with confusion. EEG to evaluate for confusion reviewed which was negative for seizure activity MRI of the brain reviewed which was consistent with acute infarction in the left cerebellum in the posterior inferior cerebellar artery region. Tiny acute lacunar infarct in the right PICA region. CTA of the head showed basilar artery and vertebral artery aneurysms. CTA of the neck did not reveal hemodynamically significant stenosis. Neurosurgery on board. She was started on heparin drip because of the risk of impending herniation and edema due to recent moderate-sized left cerebellar stroke. She developed hydrocephalus in the next 24 hours and emergent EVD was placed by neurosurgery. She is currently doing well and is more responsive. On BiPAP. Pulmonology is on board. Continue neurochecks every 2 hours. Check hemoglobin A1c, fasting lipid panel and TSH. Continue rectal aspirin. N.p.o. till cleared by speech Start statin and home medications once patient is cleared by speech. Telemetry to rule out arrhythmias Strict control of blood pressure and blood glucose. Consider further stroke work-up including 2D echocardiogram to evaluate for left ventricular ejection fraction. Continue medical management per primary team, pulmonology and neurosurgery. PT/OT/speech. DVT prophylaxis. Plan discussed in detail with the patient's sister at bedside and also the nursing staff.
[2020-09-23 17:18] LABS: Platelet Count 272 thou/uL (130-400)
--- NOTE | 2020-09-23 17:38 | PRG ---
DATE OF SERVICE: 09/23/2020 SUBJECTIVE: Lexus Chase remains on BiPAP. Blood gas today does not indicate that she is having any CO2 retention or acid-base disorder. She is actually asking the nurses to change the channel to the [employer] earlier, so she is coherent at this point in time. Her ventricular drain is still in place. OBJECTIVE: VITAL SIGNS: Heart rate is 100, respiratory rates in the 20s, blood pressure 159/99. She is on a Cardene drip. LUNGS: Remarkable for equal breath sounds. HEART: Regular rhythm. ABDOMEN: Soft. LABORATORY DATA: White count 14.5, hemoglobin 13.9, and platelets 241. Electrolytes are unremarkable. IMPRESSION: 1. Sleep apnea/obesity hypoventilation, on BiPAP, doing well. 2. Posterior circulation stroke, leading to hydrocephalus and an external drain. PLAN: She actually is stable for now. I would agree with Dr. Tabares that there is at least a reasonable chance that she will require intubation during the course of this illness just simply because of her size. Critical care time 30min. Job ID: [id number] MTDD
[2020-09-23] MEDS: Atorvastatin Calcium 40 MG TAB PO SCH (22:23)
[2020-09-23] MEDS: Pantoprazole 40 MG VIAL IVP SCH (22:23)
[2020-09-23] MEDS: Aspirin 300 MG Suppository PR SCH (22:23)
[2020-09-24] MEDS: niCARdipine 50 MG in Sodium Chloride 0.9% 250 ML 230 ML IV SCH ×2 (01:18→09:54)
[2020-09-24] MEDS: Fentanyl 100 MCG/2 ML VIAL SLOW IVP PRN (02:33)
[2020-09-24] MEDS: Labetalol HCl 100 MG/20 ML VIAL SLOW IVP PRN (03:01)
[2020-09-24 04:36] LABS: #Lymphocytes 1.4 thou/uL (1.20-3.40); #Monocytes 1.3 thou/uL (0.11-0.59); #Neutrophils 14.2 thou/uL (1.40-6.50); %Basophils 0.2 % (0.0-1.0); %Eosinophils 0.1 % (0.0-10.0); %Lymphocytes 8.1 % (21.0-51.0); %Monocytes 7.4 % (0.0-10.0); %Neutrophils 84.2 % (42.0-75.0); Mean Corpuscular HGB CONC 32.3 g/dL (32.0-36.0); Mean Platelet Volume 7.7 fL (7.4-10.4); Platelet Count 298 thou/uL (130-400); RBC Distribution Width 12.2 % (11.5-14.5); White Blood Cell (WBC) Count 16.8 thou/uL (4.8-10.8)
[2020-09-24 04:55] LABS: Actual Bicarbonate (HCO3a) 34.3 mEq/L (22-28); Base Excess (BEa) 4.7 mEq/L (-2.0 to +3.0); Calcium, Ionized (arterial) 1.22 mmol/L (1.12-1.30); Carboxyhemoglobin (COHb) 0.7 gm% (0.0-3.0); pH, Arterial 7.28 (7.35-7.45)
[2020-09-24 05:01] LABS: CO2 Tension 74.9 mmHg (35.0-45.0); O2 Tension (PaO2), arterial 56.2 mmHg (80.0-100.0); Puncture Site RRA
[2020-09-24 05:02] LABS: ALV-art Gradient 99.725 mmHg (0-20)
[2020-09-24 05:05] LABS: Anion Gap 12 mmol/L (10-20); BUN (Urea Nitrogen) 20 mg/dL (9.8-20.1); Calc. Creatinine Clearance 169 mL/min (70-130); Calcium 8.6 mg/dL (7.8-10.44); Carbon Dioxide 31 mmol/L (22-29); Chloride 108 mmol/L (98-107); Glucose 133 mg/dL (70-105); Potassium 3.4 mmol/L (3.5-5.1); Sodium 148 mmol/L (136-145)
[2020-09-24] MEDS ORDERED: Vecuronium 10 MG VIAL ONE (05:12)
[2020-09-24] MEDS ORDERED: Sterile Water 0 ML ONE (05:13)
[2020-09-24] MEDS ORDERED: PROPOFOL 0 ML ONE (05:18)
[2020-09-24 06:56] LABS: Actual Bicarbonate (HCO3a) 27.7 mEq/L (22-28); Base Excess (BEa) 5.7 mEq/L (-2.0 to +3.0); CO2 Tension 32.4 mmHg (35.0-45.0); Calcium, Ionized (arterial) 1.16 mmol/L (1.12-1.30); Carboxyhemoglobin (COHb) 0.9 gm% (0.0-3.0); Hemoglobin (Hb) 13.6 g/dL (12.0-16.0); O2 Tension (PaO2), arterial 79.1 mmHg (80.0-100.0); Potassium - ABG Lab 3.33 mmol/L (3.70-5.30)
[2020-09-24] MEDS: CEFAZOLIN 2 GM in Premix Bag 1 BAG IVPB SCH ×3 (06:59→21:15)
[2020-09-24] MEDS ORDERED: Mannitol 12.5 GM/50 ML SLOW IVP SCH (07:00)
--- NOTE | 2020-09-24 07:00 | PRG ---
DATE OF SERVICE: Ms. Chase required intubation just after 5 o'clock this morning. Her CO2 was high and she was less responsive. She was not coordinating very well with her BiPAP. The maximum temperature I see recorded is 98.9 degrees Fahrenheit. Blood pressures have been in the 140s to 180s. On examination, Ms. Chase is just coming out from her sedation. She follows commands by wiggling her toes on both sides and squeezing both hands. She is a bit slower on the left than the right, but both sides are moving. : White blood cell count this morning is 16.8. The sodium is 148. 3.3 L was administered over the 24 hours prior today, which is a bit too much fluid. For Ms. Chase, we will get a CT scan later today and ensure our external ventricular drain is still doing its job. We will also assess the swelling. She may need a bolus of mannitol. I would restrict her fluid to 2 L a day rather than 3.3. This will help with swelling. Job ID: [id number] [facility]
[2020-09-24] MEDS ORDERED: Propofol 1,000 MG/100 ML VIAL IV ONE (07:01)
[2020-09-24 07:38] LABS: Puncture Site RRA; pH, Arterial 7.55 (7.35-7.45)
[2020-09-24] MEDS ORDERED: Propofol BOLUS 1,000 MG/100 ML VIAL IV PRN (07:45)
--- NOTE | 2020-09-24 07:51 | RAD ---
EXAM: Single view of the chest HISTORY: Intubation for respiratory failure COMPARISON: None FINDINGS: Single view of the chest shows an enlarged cardiomediastinal silhouette. There is an endot oliva tube with its tip at the marielle. An NG tube is seen in the stomach. There is obscurity of the left diaphragm which could represent left basilar atelectasis or an infiltrate. No acute osseous abnormality. IMPRESSION: 1. The endotracheal tube is slightly low-lying and should be withdrawn approximately 2 cm. 2. Left basilar atelectasis versus infiltrate.
--- NOTE | 2020-09-24 08:17 | PRG ---
DATE OF SERVICE: 09/24/2020 30 minutes of critical care time. SUBJECTIVE: The patient is currently intubated on mechanical ventilation after demonstrating hypercapnia and increased lethargy last night while on the BiPAP. She will wake up and follow some commands from nursing staff. OBJECTIVE: VITAL SIGNS: Temperature 98.9, pulse 91, blood pressure 160/90. Ventriculostomy is functioning. ICP is currently 7. She is on nicardipine drip. 24-hour intake 1793, output 7. HEENT: Pupils are reactive. Sclerae anicteric. Oropharynx intubated. NECK: No JVD. LUNGS: Clear. CARDIAC: S1, S2. Regular. ABDOMEN: Soft, obese, nontender. EXTREMITIES: No edema. LABORATORY DATA: Post intubation ABG; pH 7.55, pCO2 32, pO2 of 79 on SIMV rate 20, tidal volume 550, PEEP 5, pressure support 10, FiO2 60%. White blood cell count 16.8, hematocrit 43, platelet count 298. Sodium 148, potassium 3.4, chloride 108, CO2 of 31, BUN 20, creatinine 0.7, glucose 133. Chest x-ray shows an ET tube in place, fairly clear lung alaniz. ASSESSMENT: 1. Acute respiratory failure, probably related to decreased respiratory drive from her swelling in the 4th ventricle area. 2. Acute stroke. PLAN: The patient is not weanable at this time. We will continue supportive care. We will start tube feeds. Job ID: [id number]
[2020-09-24] MEDS: Pantoprazole 40 MG VIAL IVP SCH ×2 (08:34→21:15)
[2020-09-24] MEDS: Potassium Chloride 20 MEQ in Premix Bag 1 BAG IVPB SCH ×2 (09:47→13:10)
--- NOTE | 2020-09-24 10:21 | CT ---
Head CT without contrast 09/24/2020: COMPARISON: 09/22/2020 HISTORY: Posterior fossa stroke, less responsive TECHNIQUE: Axial CT imaging at 5 mm intervals from vertex through skull base without contrast FINDINGS: There is a large area of hypodensity within the left cerebellar hemisphere, primarily infer iorly located suggesting a large left PICA infarct, not significantly changed when compared to the 09/22/2020 exam. There is stable complete obliteration of the fourth ventricle with marked mass effect within the posterior fossa and shift of the fourth ventricle to the right of midline. Lobulated round lesion of mixed density anterior to the james is noted measuring at least 1.8 cm consi stent with a partially thrombosed basilar artery aneurysm. There is a aneurysm involving the distal left vertebral artery on axial image 27, not optimally seen/assessed on this exam. There is multifocal periventricular, deep, and subcortical white matter hypodensity suggesting small vessel disease. There is a stable ventriculostomy in the right frontal region extending into the region of the mold operator ior body right lateral ventricle, unchanged. Small volume hemorrhage is seen along the course of the ventriculostomy within the deep white matter of the right frontal lobe. The visualized paranasal sinuses and mastoid air cells are grossly unremarkable aside from mild mucos al thickening of the ethmoid air cells, left maxillary sinus, and right sphenoid sinus. No acute osseous abnormality. There is questionable small volume intraventricular hemorrhage layering within the posterior horn of the right lateral ventricle on axial image 34. IMPRESSION: No significant interval change in large left-sided cerebellar infarction with obliteratio n of the fourth ventricle and shift of the midline structures within the posterior fossa to the right. 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 Stable small volu me intra-axial hemorrhage along the course of the right frontal ventriculostomy.
--- NOTE | 2020-09-24 10:29 | PDOC.HOSPP ---
- Subjective Encounter Date: 09/24/20 Encounter Time: 09:15 Subjective: This morning patient required intubation, currently patient is slightly awake on ventilator, today she has fever, - Objective Vital Signs & Weight: Vital Signs (12 hours) Temp Pulse Resp BP 09/24/20 10:23 84 155/84 H 09/24/20 10:00 101.1 F H 16 09/24/20 08:00 101.2 F H 16 09/24/20 06:46 79 159/88 H 09/24/20 06:00 20 09/24/20 05:43 84 146/78 H 09/24/20 04:00 98.9 F 09/24/20 03:01 127 H 192/113 H 09/24/20 02:54 130 H 09/24/20 00:00 98.5 F 09/23/20 23:00 104 H Weight Admit Weight 265 lb 14.04 oz Weight 275 lb 9.245 oz Most Recent Monitor Data Heart Rate from ECG 86 NIBP 167/82 NIBP BP-Mean 110 Respiration from ECG 27 SpO2 97 I&O: 09/23/20 09/24/20 09/25/20 06:59 06:59 06:59 Intake Total 3323 1793 Output Total 2870 0185 593 Balance 457 -832 -558 Result Diagrams: 09/24/20 04:00 09/24/20 04:00 Additional Labs: Accuchecks 09/23/20 09/23/20 09/23/20 22:26 17:43 10:43 POC Glucose 106 H 126 H 125 H Radiology Reviewed by me: Yes (Chest x-ray and CT brain noted,) EKG Reviewed by me: Yes Hospitalist ROS - Review of Systems ROS unobtainable: due to endotracheal tube - Medication Medications: Active Medications Generic Name Dose Route Start Last Admin Trade Name Freq PRN Reason Stop Dose Admin Acetaminophen 650 mg 09/19/20 14:00 09/21/20 03:07 Acetaminophen 325 Mg Tab PO 650 mg Q6H PRN Administration Fever > 101 or Headache Acetaminophen 650 mg 09/19/20 14:00 09/24/20 09:45 Acetaminophen 650 Mg Suppository [place] 650 mg Q4H PRN Administration Headache/Fever/Mild Pain (1-3) Aspirin 300 mg 09/21/20 21:00 09/23/20 22:23 Aspirin 300 Mg Suppository FL 300 mg HS HOLLY Administration Atorvastatin Calcium 40 mg 09/21/20 21:00 09/23/20 22:23 Atorvastatin Calcium 40 Mg Tab PO 40 mg HS HOLLY Administration Fentanyl 25 mcg 09/21/20 16:49 09/24/20 02:33 Fentanyl 100 Mcg/2 Ml Vial SLOW IVP 25 mcg Q1H PRN Administration Moderate to Severe Pain (6-10) Hydralazine HCl 10 mg 09/21/20 13:39 09/22/20 09:18 Hydralazine 20 Mg/Ml Vial SLOW IVP 10 mg Q15MIN PRN Administration SBP >180 mm Hg Nicardipine HCl 50 mg/ Sodium 250 mls @ 0 mls/hr 09/20/20 18:15 09/24/20 09:54 Chloride IV 250 mls INF HOLLY Administration Protocol As Directed Cefazolin Sodium/Dextrose 2 gm 50 mls @ 100 mls/hr 09/21/20 22:00 09/24/20 06:59 / Device IVPB 50 mls Q8HR HOLLY Administration Sodium Chloride 1,000 mls @ 75 mls/hr 09/21/20 16:45 09/23/20 18:27 Normal Saline 0.9% IV 1,000 mls .[id number] HOLLY Administration Levofloxacin 250 mg/ Device 50 mls @ 100 mls/hr 09/22/20 10:45 09/23/20 09:56 IVPB 09/24/20 11:14 50 mls Q24HR HOLLY Administration Potassium Chloride 20 meq/ 100 mls @ 50 mls/hr 09/24/20 09:00 09/24/20 09:47 Device IVPB 09/24/20 12:59 100 mls Q2H HOLLY Administration Labetalol HCl 20 mg 09/21/20 13:41 09/24/20 03:01 Labetalol Hcl 100 Mg/20 Ml Vial SLOW IVP 20 mg Q4H PRN Administration SBP > 180 and HR >100 Pantoprazole Sodium 40 mg 09/23/20 21:00 09/24/20 08:34 Pantoprazole 40 Mg Vial IVP 40 mg Q12HR HOLLY Administration Hospitalist Exam Vitals: Vital Signs (12 hours) Temp Pulse Resp BP 09/24/20 10:23 84 155/84 H 09/24/20 10:00 101.1 F H 16 09/24/20 08:00 101.2 F H 16 09/24/20 06:46 79 159/88 H 09/24/20 06:00 20 09/24/20 05:43 84 146/78 H 09/24/20 04:00 98.9 F 09/24/20 03:01 127 H 192/113 H 09/24/20 02:54 130 H 09/24/20 00:00 98.5 F 09/23/20 23:00 104 H Weight Admit Weight 265 lb 14.04 oz Weight 275 lb 9.245 oz Most Recent Monitor Data Heart Rate from ECG 86 NIBP 167/82 NIBP BP-Mean 110 Respiration from ECG 27 SpO2 97 General Appearance: NAD, ill appearing Eye: PERRL, anicteric sclera Eye - other findings: Right ptosis noted ENT - other findings: External ventricular drain in place, endotracheal tube in place Neck: symmetric, no JVD Heart: RRR, no murmur, no gallops, no rubs Respiratory: no wheezes, no rales, no ronchi Respiratory - other findings: Anteriorly clear to auscultation Gastrointestinal: soft, non-distended, normal bowel sounds Gastrointestinal - other findings: Morbid obesity noted Extremities: 2+ LE edema Skin: normal turgor Hosp A/P (1) Acute respiratory failure with hypoxia and hypercapnia Code(s): J96.01 - ACUTE RESPIRATORY FAILURE WITH HYPOXIA; J96.02 - ACUTE RESPIRATORY FAILURE WITH HYPERCAPNIA Status: Acute Plan: On ventilator, (2) Acute encephalopathy Code(s): G93.40 - ENCEPHALOPATHY, UNSPECIFIED Status: Acute (3) Cerebrovascular accident (CVA) due to occlusion of cerebellar artery Code(s): I63.549 - CEREB INFRC DUE TO UNSP OCCLS OR STENOS OF UNSP CEREBLR ART Status: Acute (4) Hydrocephalus Code(s): G91.9 - HYDROCEPHALUS, UNSPECIFIED Status: Acute (5) Hypertensive urgency Code(s): I16.0 - HYPERTENSIVE URGENCY Status: Acute (6) Basilar artery aneurysm Code(s): I72.5 - ANEURYSM OF OTHER PRECEREBRAL ARTERIES Status: Chronic (7) Morbid obesity with BMI of 50.0-59.9, adult Code(s): E66.01 - MORBID (SEVERE) OBESITY DUE TO EXCESS CALORIES; Z68.43 - BODY MASS INDEX [BMI] 50.0-59.9, ADULT Status: Chronic (8) Hypertension Code(s): I10 - ESSENTIAL (PRIMARY) HYPERTENSION Status: Chronic (9) Obesity hypoventilation syndrome Code(s): E66.2 - MORBID (SEVERE) OBESITY WITH ALVEOLAR HYPOVENTILATION Status: Chronic (10) Hypokalemia Code(s): E87.6 - HYPOKALEMIA Status: Resolved (11) Coffee ground emesis Code(s): K92.0 - HEMATEMESIS Status: Resolved (12) Sepsis Code(s): A41.9 - SEPSIS, UNSPECIFIED ORGANISM Status: Acute Qualifiers: Sepsis type: sepsis due to unspecified organism Sepsis acute organ dysfunction status: with acute organ dysfunction Severe sepsis acute organ dysfunction type: acute respiratory failure Acute respiratory failure type: with hypercapnia Severe sepsis shock status: without septic shock Qualified Code(s): A41.9 - Sepsis, unspecified organism; R65.20 - Severe sepsis without septic shock; J96.02 - Acute respiratory failure with hypercapnia - Plan old records reviewed/req, continue antibiotics, respiratory therapy Continue ventilator management as per pulmonology Clear drainage per neurosurgery Patient is on cefazolin and levofloxacin We will do blood culture and urine culture Medication reviewed and continue provide symptomatic and supportive care If patient continued to be febrile then consider adding cefepime and vancomycin Close monitoring in the CCU. Prognosis guarded
[2020-09-24] MEDS: Sodium Chloride 0.9% 1,000 ML IV SCH (12:19)
--- NOTE | 2020-09-24 13:07 | PDOC.NEUPN ---
- Subjective Encounter Date: 09/24/20 Subjective: Ms. Chase is again intubated due to respiratory distress around 5 AM this morning. She is currently awake with minimal sedation and does maintain eye contact and tracks. - Objective Vital Signs & Weight: Vital Signs (12 hours) Temp Pulse Resp BP Pulse Ox 09/24/20 12:00 100 F H 16 09/24/20 11:00 101 F H 09/24/20 10:23 84 155/84 H 09/24/20 10:00 101.1 F H 16 09/24/20 08:00 101.2 F H 16 97 09/24/20 06:46 79 159/88 H 09/24/20 06:00 20 09/24/20 05:43 84 146/78 H 09/24/20 04:00 98.9 F 09/24/20 03:01 127 H 192/113 H 09/24/20 02:54 130 H Weight Admit Weight 265 lb 14.04 oz Weight 275 lb 9.245 oz Most Recent Monitor Data Heart Rate from ECG 85 NIBP 173/75 NIBP BP-Mean 107 Respiration from ECG 27 SpO2 97 I&O: 09/23/20 09/24/20 09/25/20 06:59 06:59 06:59 Intake Total 3323 1793 100 Output Total 2876 2117 533 Balance 002 -728 -377 Result Diagrams: 09/24/20 04:00 09/24/20 04:00 Additional Labs: Accuchecks 09/24/20 09/23/20 09/23/20 10:55 22:26 17:43 POC Glucose 99 106 H 126 H Radiology Reviewed by me: Yes EKG Reviewed by me: Yes ROS - Review of Systems ROS unobtainable: due to endotracheal tube - Medication Medications: Active Medications Generic Name Dose Route Start Last Admin Trade Name Freq PRN Reason Stop Dose Admin Acetaminophen 650 mg 09/19/20 14:00 09/21/20 03:07 Acetaminophen 325 Mg Tab PO 650 mg Q6H PRN Administration Fever > 101 or Headache Acetaminophen 650 mg 09/19/20 14:00 09/24/20 09:45 Acetaminophen 650 Mg Suppository PA 650 mg Q4H PRN Administration Headache/Fever/Mild Pain (1-3) Aspirin 300 mg 09/21/20 21:00 02/01/21 22:23 Aspirin 300 Mg Suppository PA 300 mg HS HOLLY Administration Atorvastatin Calcium 40 mg 09/21/20 21:00 09/23/20 22:23 Atorvastatin Calcium 40 Mg Tab PO 40 mg HS HOLLY Administration Fentanyl 25 mcg 09/21/20 16:49 09/24/20 02:33 Fentanyl 100 Mcg/2 Ml Vial SLOW IVP 25 mcg Q1H PRN Administration Moderate to Severe Pain (6-10) Hydralazine HCl 10 mg 09/21/20 13:39 09/22/20 09:18 Hydralazine 20 Mg/Ml Vial SLOW IVP 10 mg Q15MIN PRN Administration SBP >180 mm Hg Nicardipine HCl 50 mg/ Sodium 250 mls @ 0 mls/hr 09/20/20 18:15 09/24/20 09:54 Chloride IV 250 mls INF HOLLY Administration Protocol As Directed Cefazolin Sodium/Dextrose 2 gm 50 mls @ 100 mls/hr 09/21/20 22:00 09/24/20 06:59 / Device IVPB 50 mls Q8HR HOLLY Administration Sodium Chloride 1,000 mls @ 75 mls/hr 09/21/20 16:45 09/24/20 12:19 Normal Saline 0.9% IV Not Given .[id number] HOLLY Labetalol HCl 20 mg 09/21/20 13:41 09/24/20 03:01 Labetalol Hcl 100 Mg/20 Ml Vial SLOW IVP 20 mg Q4H PRN Administration SBP > 180 and HR >100 Pantoprazole Sodium 40 mg 09/23/20 21:00 09/24/20 08:34 Pantoprazole 40 Mg Vial IVP 40 mg Q12HR HOLLY Administration - Exam General Appearance: awake alert Eye: PERRL ENT: normocephalic atraumatic Neck: supple Respiratory: CTAB Cardiovascular: RRR Gastrointestinal: soft Extremities: no cyanosis Skin: normal turgor Neurological: no new deficit Musculoskeletal: normal tone, no muscle wasting PSYCH: somnolent (Secondary to sedation) Results - Labs Result Diagrams: 09/24/20 04:00 09/24/20 04:00 Lab results: WBC 16.8 thou/uL (4.8-10.8) H 09/24/20 04:00 Hgb 14.0 g/dL (12.0-16.0) 09/24/20 04:00 Hct 43.2 % (36.0-47.0) 09/24/20 04:00 MCV 96.0 fL (78.0-98.0) 09/24/20 04:00 Plt Count 298 thou/uL (130-400) 09/24/20 04:00 Neutrophils % 84.2 % (42.0-75.0) H 09/24/20 04:00 Band Neuts % (Manual) 23 % (5-11) H 09/19/20 17:28 ABG pH 7.55 (7.35-7.45) H* 09/24/20 05:41 ABG pCO2 32.4 mmHg (35.0-45.0) L 09/24/20 05:41 ABG pO2 79.1 mmHg (80.0-100.0) L 09/24/20 05:41 Sodium 148 mmol/L (136-145) H 09/24/20 04:00 Potassium 3.4 mmol/L (3.5-5.1) L 09/24/20 04:00 Chloride 108 mmol/L (98-107) H 09/24/20 04:00 Carbon Dioxide 31 mmol/L (22-29) H 09/24/20 04:00 BUN 20 mg/dL (9.8-20.1) 09/24/20 04:00 Creatinine 0.75 mg/dL (0.6-1.1) 09/24/20 04:00 Glucose 133 mg/dL (70-105) H 09/24/20 04:00 Lactic Acid 1.0 mmol/L (0.5-2.2) 09/21/20 10:43 Calcium 8.6 mg/dL (7.8-10.44) 09/24/20 04:00 Total Bilirubin 0.5 mg/dL (0.2-1.2) 09/19/20 11:43 AST 16 U/L (5-34) 09/19/20 11:43 ALT 19 U/L (8-55) 09/19/20 11:43 Alkaline Phosphatase 107 U/L (40-110) 09/19/20 11:43 Creatine Kinase 266 U/L (29-168) H 09/19/20 11:43 Troponin I Less than 0.010 ng/mL (< 0.028) 09/19/20 11:43 B-Natriuretic Peptide 31.5 pg/mL (0-100) 09/19/20 11:48 Serum Total Protein 8.0 g/dL (6.0-8.3) 09/19/20 11:43 Albumin 4.1 g/dL (3.5-5.0) 09/19/20 11:43 Lipase 11 U/L (8-78) 09/19/20 11:43 Urine Ketones Negative mg/dL (Negative) 09/19/20 09:20 Urine Blood 3+ (Negative) A 09/19/20 09:20 Urine Nitrite Negative (Negative) 09/19/20 09:20 Ur Leukocyte Esterase 75 Fouzia/uL (Negative) A 09/19/20 09:20 Urine RBC Greater than 50 HPF (0-3) A 09/19/20 09:20 Urine WBC 7-10 HPF (0-3) A 09/19/20 09:20 Ur Squamous Epith Cells 0-3 HPF (0-3) 09/19/20 09:20 Urine Bacteria 1+ HPF (None Seen) A 09/19/20 09:20 PN A/P (1) Cerebrovascular accident (CVA) due to occlusion of cerebellar artery Code(s): I63.549 - CEREB INFRC DUE TO UNSP OCCLS OR STENOS OF UNSP CEREBLR ART Status: Acute (2) Acute encephalopathy Code(s): G93.40 - ENCEPHALOPATHY, UNSPECIFIED Status: Acute (3) Hydrocephalus Code(s): G91.9 - HYDROCEPHALUS, UNSPECIFIED Status: Acute (4) Hypertensive urgency Code(s): I16.0 - HYPERTENSIVE URGENCY Status: Acute (5) Leukocytosis Code(s): D72.829 - ELEVATED WHITE BLOOD CELL COUNT, UNSPECIFIED Status: Acute (6) Thoracic aortic ectasia Code(s): I77.810 - THORACIC AORTIC ECTASIA Status: Acute (7) Basilar artery aneurysm Code(s): I72.5 - ANEURYSM OF OTHER PRECEREBRAL ARTERIES Status: Chronic (8) Hypertension Code(s): I10 - ESSENTIAL (PRIMARY) HYPERTENSION Status: Chronic (9) Morbid obesity with BMI of 50.0-59.9, adult Code(s): E66.01 - MORBID (SEVERE) OBESITY DUE TO EXCESS CALORIES; Z68.43 - BODY MASS INDEX [BMI] 50.0-59.9, ADULT Status: Chronic - Plan Daily Plan: PT/OT, speech therapy, DVT proph w/SCDs Ms. Chase is a 55-year-old female with history significant for morbid obesity and hypertension presented with acute encephalopathy in the setting of hypertensive emergency. Her initial presentation was nausea, vomiting, headache and generalized weakness associated with confusion. Patient had episodes of respiratory distress this morning and she was intubated around 5 AM this morning. EVD in place for the treatment of hydrocephalus and neurosurgery is on board .neuro surgery suggested further treatment with mannitol and fluid restriction for the next [address] repeated today which showed no significant interval change from the prior head CT. Again, seen on imaging the large left cerebellar stroke and posterior circulation aneurysm. EVD in place. EEG to evaluate for confusion reviewed which was negative for seizure activity MRI of the brain reviewed which was consistent with acute infarction in the left cerebellum in the posterior inferior cerebellar artery region. Tiny acute lacunar infarct in the right PICA region. CTA of the head showed basilar artery and vertebral artery aneurysms. CTA of the neck did not reveal hemodynamically significant stenosis. Continue neurochecks every 2 hours. Continue rectal aspirin. N.p.o. till cleared by speech Start statin and home medications once patient is cleared by speech. Telemetry to rule out arrhythmias Strict control of blood pressure and blood glucose. Consider further stroke work-up including 2D echocardiogram to evaluate for left ventricular ejection fraction when stable. Continue medical management per primary team, pulmonology and neurosurgery. PT/OT/speech. DVT prophylaxis. Plan discussed in detail with the patient's sister at bedside and also the nursing staff.
[2020-09-24] MEDS: Acetaminophen 325 MG TAB PO PRN (21:14)
[2020-09-24] MEDS: Aspirin 300 MG Suppository PR SCH (21:14)
[2020-09-24] MEDS: Atorvastatin Calcium 40 MG TAB PO SCH (21:15)
[2020-09-25] MEDS: Sodium Chloride 0.9% 1,000 ML IV SCH ×2 (00:28→14:49)
[2020-09-25 07:23] LABS: #Eosinphils 0.1 thou/uL (0.0-0.7); #Lymphocytes 2.8 thou/uL (1.20-3.40); #Monocytes 1.3 thou/uL (0.11-0.59); #Neutrophils 8.5 thou/uL (1.40-6.50); %Basophils 0.4 % (0.0-1.0); %Eosinophils 0.7 % (0.0-10.0); %Lymphocytes 21.8 % (21.0-51.0); %Monocytes 10.1 % (0.0-10.0); %Neutrophils 67.1 % (42.0-75.0); Hemoglobin 12.6 g/dL (12.0-16.0); Mean Corpuscular HGB CONC 31.7 g/dL (32.0-36.0); Mean Corpuscular Hemoglobin 30.5 pg (27.0-31.0); Mean Corpuscular Volume 96.2 fL (78.0-98.0); Platelet Count 276 thou/uL (130-400); RBC Distribution Width 12.3 % (11.5-14.5); Red Blood Cell (RBC) Count 4.15 mill/uL (4.20-5.40); White Blood Cell (WBC) Count 12.6 thou/uL (4.8-10.8)
[2020-09-25 07:23] LABS: Anion Gap 11 mmol/L (10-20); BUN (Urea Nitrogen) 19 mg/dL (9.8-20.1); Calc. Creatinine Clearance 210 mL/min (70-130); Calcium 8.1 mg/dL (7.8-10.44); Carbon Dioxide 28 mmol/L (22-29); Chloride 111 mmol/L (98-107); Glucose 105 mg/dL (70-105); Potassium 3.2 mmol/L (3.5-5.1); Sodium 147 mmol/L (136-145)
--- NOTE | 2020-09-25 07:39 | RAD ---
Exam: Chest one view HISTORY:Pneumonia Comparison: 09/19/2020 FINDINGS: Lines and tubes: There is evidence of endotracheal tube and nasogastric tube. Cardiac silhouette:Magnification cardiac silhouette in part due to portable technique and in part due to diminished lung volumes Aorta: Unremarkable Pulmonary vessels: Normal Costophrenic angles: Clear LUNGS: Interstitial lung volumes. Pneumothorax: None Osseous abnormalities: None IMPRESSION: No acute cardiopulmonary process.
[2020-09-25] MEDS: CEFAZOLIN 2 GM in Premix Bag 1 BAG IVPB SCH ×3 (07:53→22:43)
[2020-09-25 07:55] LABS: Actual Bicarbonate (HCO3a) 29.4 mEq/L (22-28); Base Excess (BEa) 5.3 mEq/L (-2.0 to +3.0); CO2 Tension 40.9 mmHg (35.0-45.0); Calcium, Ionized (arterial) 1.16 mmol/L (1.12-1.30); Carboxyhemoglobin (COHb) 0.5 gm% (0.0-3.0); Hemoglobin (Hb) 13.5 g/dL (12.0-16.0); O2 Tension (PaO2), arterial 61.9 mmHg (80.0-100.0); Potassium - ABG Lab 3.24 mmol/L (3.70-5.30); pH, Arterial 7.47 (7.35-7.45)
[2020-09-25 07:59] LABS: ALV-art Gradient 243.475 mmHg (0-20); Puncture Site RRA
--- NOTE | 2020-09-25 08:06 | PRG ---
DATE OF SERVICE: 09/25/2020 This is 35 minutes critical care time. SUBJECTIVE: This patient remains intubated on mechanical ventilation. She will wake up. She follows some commands, but not consistently. OBJECTIVE: VITAL SIGNS: Her temperature is above 101 that has been her T-max, pulse 92, blood pressure 186/81. She is currently on a Cardene drip. She is also on propofol. 24-hour intake is 2193, output 2443. HEENT: Unremarkable except for the endotracheal tube in the fourth ventricular drain. NECK: No adenopathy or JVD. LUNGS: Clear anteriorly. CARDIOVASCULAR: S1 and S2 regular. ABDOMEN: Obese, soft, and nontender. EXTREMITIES: No clubbing, cyanosis, or edema. NEUROLOGIC: She will grasp well with the right hand. I cannot get her grasp over the left hand and moved her feet very well. LABORATORY DATA: Sodium 147, potassium 3.2, chloride 111, CO2 of 28, BUN 19, creatinine 0.6, and glucose 105. ASSESSMENT: 1. Status post cerebellar territory stroke. 2. Hydrocephalus requiring ventricular drain. PLAN: 1. Continue tube feeds. Supportive care with Cardene. Add ibuprofen for fever. 2. Not weanable secondary to her poor mental status and poor neurologic status. Prognosis is guarded. Job ID: [id number]
--- NOTE | 2020-09-25 08:26 | PRG ---
DATE OF SERVICE: 09/25/2020 I saw Lexus Chase in her ICU room this morning. No events were reported overnight. Maximum temperature I see is 101.2 degrees Fahrenheit, blood pressures have been in the 150s to 180s, which are too high. Ms. Chase has her eyes open and was examined in the room. She is following commands with both feet and the right arm. The left arm is not moving for me today. She says she can feel it and she nods, but the left arm is swollen and weak compared to yesterday. White blood cell count yesterday was 16.8. There are no new tests from this morning. The sodium is 147. Between midnight and 6:59 a.m., 2.2 L of fluids was recorded and is being administered. It is a bit high for 7 hours. I recommend fluid be limited to 2 L a day to help with swelling. Ms. 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 She currently has an EVD to control hydrocephalus. We will get a CT scan of the brain today to ensure she has not had a new stroke making her left arm weak. The fever needs to be worked up and determine whether it is related to her lungs, urinary tract, or a deep venous thrombosis. Job ID: [id number] MTDD
[2020-09-25] MEDS: Ibuprofen 200 MG TAB PO PRN ×2 (08:55→17:34)
[2020-09-25] MEDS: Pantoprazole 40 MG VIAL IVP SCH ×2 (08:55→20:05)
[2020-09-25] MEDS: Propofol 1,000 MG/100 ML VIAL IV PRN ×3 (08:55→20:55)
--- NOTE | 2020-09-25 10:40 | CT ---
Exam: Head CT without contrast HISTORY: Increased left arm weakness. COMPARISON: 09/24/2020 FINDINGS: Hemorrhage: Stable intraparenchymal hemorrhage adjacent to the course of a right-sided ventriculoperi toneal shunt catheter. This focus of hemorrhage in the right centrum semiovale measures 1.2 x 0.7 cm. No new intraparenchymal hemorrhage. Brain parenchyma: Stable chronic small vessel ischemic changes of the white matter. Cortical huynh-whi te matter differentiation is preserved. Stable volume loss due to left cerebellar infarct. Expected evolutionary changes.Stable thrombosis and ectasia/aneurysmal dilatation of the posterior circulation . Ventricular system: Ventricles and sulci are patent and symmetric. Calvarium: Intact. Sinuses and mastoid air cells: Partial opacification of the visualized paranasal sinuses. IMPRESSION: 1. Small focus of hemorrhage along the course of the COIL SHAPER shunt catheter. Stable configuration the vent ricular system. 2. Stable thrombosis in aneurysm involving the procedure circulation 3. Expected evolutionary changes due to left cerebellar infarct.
[2020-09-25] MEDS: niCARdipine 50 MG in Sodium Chloride 0.9% 250 ML 230 ML IV SCH ×3 (11:00→23:23)
--- NOTE | 2020-09-25 11:51 | ULT ---
BILATERAL LOWER EXTREMITY VENOUS DOPPLER EVALUATION PROVIDED CLINICAL HISTORY: Fever; concern for bilateral lower extremity DVT TECHNIQUE: Grayscale, color doppler and spectral doppler images were obtained of the common femoral , femoral, profunda femoral, popliteal and posterior tibial veins of both lower extremities. FINDINGS: There is normal compression, flow and augmentation seen with the deep venous structures within both l ower extremities. IMPRESSION: No sonographic evidence for lower extremity deep venous thrombosis.
[2020-09-25] MEDS: Acetaminophen 325 MG TAB PO PRN (12:29)
--- NOTE | 2020-09-25 14:10 | PDOC.NEUPN ---
- Subjective Encounter Date: 09/25/20 Subjective: Patient continues to be sedated and intubated. - Objective Vital Signs & Weight: Vital Signs (12 hours) Temp Pulse Resp BP Pulse Ox 09/25/20 14:00 100.0 F H 16 09/25/20 12:29 100.4 F H 09/25/20 12:00 100.4 F H 19 09/25/20 11:00 99.7 F H 09/25/20 10:50 82 09/25/20 10:00 101.2 F H 21 H 09/25/20 09:00 101.8 F H 09/25/20 08:55 102.0 F H 82 17 171/80 H 09/25/20 08:00 16 96 09/25/20 07:57 89 09/25/20 07:00 102.0 F H 09/25/20 06:00 22 H 09/25/20 04:00 100.6 F H 18 Weight Admit Weight 265 lb 14.04 oz Weight 275 lb 9.245 oz Most Recent Monitor Data Heart Rate from ECG 74 NIBP 153/86 NIBP BP-Mean 108 Respiration from ECG 15 SpO2 98 I&O: 09/24/20 09/25/20 09/26/20 06:59 06:59 06:59 Intake Total 1793 2223 150 Output Total 3564 5253 781 Balance -389 -220 -516 Result Diagrams: 09/25/20 04:30 09/25/20 03:30 Additional Labs: Accuchecks 09/25/20 09/25/20 09/24/20 10:10 04:34 21:13 POC Glucose 98 95 100 09/24/20 16:30 POC Glucose 91 Radiology Reviewed by me: Yes EKG Reviewed by me: Yes ROS - Review of Systems ROS unobtainable: due to endotracheal tube - Medication Medications: Active Medications Generic Name Dose Route Start Last Admin Trade Name Freq PRN Reason Stop Dose Admin Acetaminophen 650 mg 09/19/20 14:00 09/25/20 12:29 Acetaminophen 325 Mg Tab PO 650 mg Q6H PRN Administration Fever > 101 or Headache Acetaminophen 650 mg 09/19/20 14:00 09/24/20 09:45 Acetaminophen 650 Mg Suppository OH 650 mg Q4H PRN Administration Headache/Fever/Mild Pain (1-3) Aspirin 300 mg 09/21/20 21:00 09/24/20 21:14 Aspirin 300 Mg Suppository OH 300 mg HS HOLLY Administration Atorvastatin Calcium 40 mg 09/21/20 21:00 09/24/20 21:15 Atorvastatin Calcium 40 Mg Tab PO 40 mg HS HOLLY Administration Fentanyl 25 mcg 09/21/20 16:49 09/24/20 02:33 Fentanyl 100 Mcg/2 Ml Vial SLOW IVP 25 mcg Q1H PRN Administration Moderate to Severe Pain (6-10) Hydralazine HCl 10 mg 09/21/20 13:39 09/22/20 09:18 Hydralazine 20 Mg/Ml Vial SLOW IVP 10 mg Q15MIN PRN Administration SBP >180 mm Hg Nicardipine HCl 50 mg/ Sodium 250 mls @ 0 mls/hr 09/20/20 18:15 09/25/20 11:00 Chloride IV 250 mls INF HOLLY Administration Protocol As Directed Cefazolin Sodium/Dextrose 2 gm 50 mls @ 100 mls/hr 09/21/20 22:00 09/25/20 12:30 / Device IVPB 50 mls Q8HR HOLLY Administration Sodium Chloride 1,000 mls @ 75 mls/hr 09/21/20 16:45 09/25/20 00:28 Normal Saline 0.9% IV 1,000 mls .[id number] HOLLY Administration Ibuprofen 400 mg 09/25/20 07:45 09/25/20 08:55 Ibuprofen 200 Mg Tab PO 400 mg Q6H PRN Administration Fever > 101 Labetalol HCl 20 mg 09/21/20 13:41 09/24/20 03:01 Labetalol Hcl 100 Mg/20 Ml Vial SLOW IVP 20 mg Q4H PRN Administration SBP > 180 and HR >100 Pantoprazole Sodium 40 mg 09/23/20 21:00 09/25/20 08:55 Pantoprazole 40 Mg Vial IVP 40 mg Q12HR HOLLY Administration Propofol 1,000 mg 09/24/20 07:45 09/25/20 13:01 Propofol 1,000 Mg/100 Ml Vial IV 10/24/20 07:45 1,000 mg INF PRN Administration TO ACHIEVE GOAL RASS Protocol - Exam General Appearance: ill appearing Eye: PERRL ENT: normocephalic atraumatic Neck: supple Respiratory: CTAB Cardiovascular: RRR Gastrointestinal: soft Extremities: no cyanosis Skin: normal turgor Neurological: no new deficit Musculoskeletal: normal tone, no muscle wasting PSYCH: somnolent, lethargic Results - Labs Result Diagrams: 09/25/20 04:30 09/25/20 03:30 Lab results: WBC 12.6 thou/uL (4.8-10.8) H 09/25/20 04:30 Hgb 12.6 g/dL (12.0-16.0) 09/25/20 04:30 Hct 39.9 % (36.0-47.0) 09/25/20 04:30 MCV 96.2 fL (78.0-98.0) 09/25/20 04:30 Plt Count 276 thou/uL (130-400) 09/25/20 04:30 Neutrophils % 67.1 % (42.0-75.0) 09/25/20 04:30 Band Neuts % (Manual) 23 % (5-11) H 09/19/20 17:28 ABG pH 7.47 (7.35-7.45) H 09/25/20 07:50 ABG pCO2 40.9 mmHg (35.0-45.0) 09/25/20 07:50 ABG pO2 61.9 mmHg (80.0-100.0) L 09/25/20 07:50 Sodium 147 mmol/L (136-145) H 09/25/20 03:30 Potassium 3.2 mmol/L (3.5-5.1) L 09/25/20 03:30 Chloride 111 mmol/L (98-107) H 09/25/20 03:30 Carbon Dioxide 28 mmol/L (22-29) 09/25/20 03:30 BUN 19 mg/dL (9.8-20.1) 09/25/20 03:30 Creatinine 0.61 mg/dL (0.6-1.1) 09/25/20 03:30 Glucose 105 mg/dL (70-105) 09/25/20 03:30 Lactic Acid 1.0 mmol/L (0.5-2.2) 09/21/20 10:43 Calcium 8.1 mg/dL (7.8-10.44) 09/25/20 03:30 Total Bilirubin 0.5 mg/dL (0.2-1.2) 09/19/20 11:43 AST 16 U/L (5-34) 09/19/20 11:43 ALT 19 U/L (8-55) 09/19/20 11:43 Alkaline Phosphatase 107 U/L (40-110) 09/19/20 11:43 Creatine Kinase 266 U/L (29-168) H 09/19/20 11:43 Troponin I Less than 0.010 ng/mL (< 0.028) 09/19/20 11:43 B-Natriuretic Peptide 31.5 pg/mL (0-100) 09/19/20 11:48 Serum Total Protein 8.0 g/dL (6.0-8.3) 09/19/20 11:43 Albumin 4.1 g/dL (3.5-5.0) 09/19/20 11:43 Lipase 11 U/L (8-78) 09/19/20 11:43 Urine Ketones Negative mg/dL (Negative) 09/19/20 09:20 Urine Blood 3+ (Negative) A 09/19/20 09:20 Urine Nitrite Negative (Negative) 09/19/20 09:20 Ur Leukocyte Esterase 75 Fouzia/uL (Negative) A 09/19/20 09:20 Urine RBC Greater than 50 HPF (0-3) A 09/19/20 09:20 Urine WBC 7-10 HPF (0-3) A 09/19/20 09:20 Ur Squamous Epith Cells 0-3 HPF (0-3) 09/19/20 09:20 Urine Bacteria 1+ HPF (None Seen) A 09/19/20 09:20 - Radiology Interpretation CT scan - head Additional Comment: Repeat HCT reviewed. Small focus of hemorrhage otherwise stable with evolutionary changes due to left cerebellar infarction. PN A/P (1) Cerebrovascular accident (CVA) due to occlusion of cerebellar artery Code(s): I63.549 - CEREB INFRC DUE TO UNSP OCCLS OR STENOS OF UNSP CEREBLR ART Status: Acute (2) Acute encephalopathy Code(s): G93.40 - ENCEPHALOPATHY, UNSPECIFIED Status: Acute (3) Hydrocephalus Code(s): G91.9 - HYDROCEPHALUS, UNSPECIFIED Status: Acute (4) Hypertensive urgency Code(s): I16.0 - HYPERTENSIVE URGENCY Status: Acute (5) Leukocytosis Code(s): D72.829 - ELEVATED WHITE BLOOD CELL COUNT, UNSPECIFIED Status: Acute (6) Thoracic aortic ectasia Code(s): I77.810 - THORACIC AORTIC ECTASIA Status: Acute (7) Basilar artery aneurysm Code(s): I72.5 - ANEURYSM OF OTHER PRECEREBRAL ARTERIES Status: Chronic (8) Hypertension Code(s): I10 - ESSENTIAL (PRIMARY) HYPERTENSION Status: Chronic (9) Morbid obesity with BMI of 50.0-59.9, adult Code(s): E66.01 - MORBID (SEVERE) OBESITY DUE TO EXCESS CALORIES; Z68.43 - BODY MASS INDEX [BMI] 50.0-59.9, ADULT Status: Chronic - Plan Daily Plan: plan discussed w/ family (brother at bedside), PT/OT, speech therapy, DVT proph w/SCDs Ms. Chase is a 55-year-old female with history significant for morbid obesity and hypertension presented with acute encephalopathy in the setting of hypertensive emergency. Her initial presentation was nausea, vomiting, headache and generalized weakness associated with confusion. No acute events. Repeat HCT reviewed. Results noted. EVD in place for the treatment of hydrocephalus and neurosurgery is on board . Appreciate neurosurgery input. EEG to evaluate for confusion reviewed which was negative for seizure activity MRI of the brain reviewed which was consistent with acute infarction in the left cerebellum in the posterior inferior cerebellar artery region. Tiny acute lacunar infarct in the right PICA region. CTA of the head showed basilar artery and vertebral artery aneurysms. CTA of the neck did not reveal hemodynamically significant stenosis. Continue neurochecks every 2 hours. N.p.o. till cleared by speech Start statin and home medications once patient is cleared by speech. Telemetry to rule out arrhythmias Strict control of blood pressure and blood glucose. Consider further stroke work-up including 2D echocardiogram to evaluate for left ventricular ejection fraction when stable. Continue medical management per primary team, pulmonology and neurosurgery. PT/OT/speech. DVT prophylaxis. Plan discussed in detail with the patient's brother at bedside and also the nursing staff.
[2020-09-25 16:58] LABS: Hemoglobin 12.9 g/dL (12.0-16.0); Platelet Count 267 thou/uL (130-400)
--- NOTE | 2020-09-25 17:40 | PDOC.HOSPP ---
- Subjective Subjective: Remains intubated. No significant change. - Objective Vital Signs & Weight: Vital Signs (12 hours) Temp Pulse Resp BP Pulse Ox 09/25/20 17:00 99.9 F H 09/25/20 16:00 22 H 09/25/20 15:00 100.1 F H 09/25/20 14:50 86 09/25/20 14:00 100.0 F H 16 09/25/20 12:29 100.4 F H 09/25/20 12:00 100.4 F H 19 09/25/20 11:00 99.7 F H 09/25/20 10:50 82 09/25/20 10:00 101.2 F H 21 H 09/25/20 09:00 101.8 F H 09/25/20 08:55 102.0 F H 82 17 171/80 H 09/25/20 08:00 16 96 09/25/20 07:57 89 09/25/20 07:00 102.0 F H 09/25/20 06:00 22 H Weight Admit Weight 265 lb 14.04 oz Weight 275 lb 9.245 oz Most Recent Monitor Data Heart Rate from ECG 83 NIBP 166/98 NIBP BP-Mean 120 Respiration from ECG 24 SpO2 96 I&O: 09/24/20 09/25/20 09/26/20 06:59 06:59 06:59 Intake Total 1793 2223 210 Output Total 2114 9673 1017 Balance -324 -220 -807 Result Diagrams: 09/25/20 16:45 09/25/20 03:30 Additional Labs: Accuchecks 09/25/20 09/25/20 09/25/20 16:26 10:10 04:34 POC Glucose 94 98 95 09/24/20 21:13 POC Glucose 100 Radiology Reviewed by me: Yes EKG Reviewed by me: Yes Hospitalist ROS - Medication Medications: Active Medications Generic Name Dose Route Start Last Admin Trade Name Freq PRN Reason Stop Dose Admin Acetaminophen 650 mg 09/19/20 14:00 09/25/20 12:29 Acetaminophen 325 Mg Tab PO 650 mg Q6H PRN Administration Fever > 101 or Headache Acetaminophen 650 mg 09/19/20 14:00 09/24/20 09:45 Acetaminophen 650 Mg Suppository [place] 650 mg Q4H PRN Administration Headache/Fever/Mild Pain (1-3) Aspirin 300 mg 09/21/20 21:00 09/24/20 21:14 Aspirin 300 Mg Suppository NH 300 mg HS HOLLY Administration Atorvastatin Calcium 40 mg 09/21/20 21:00 09/24/20 21:15 Atorvastatin Calcium 40 Mg Tab PO 40 mg HS HOLLY Administration Fentanyl 25 mcg 09/21/20 16:49 09/24/20 02:33 Fentanyl 100 Mcg/2 Ml Vial SLOW IVP 25 mcg Q1H PRN Administration Moderate to Severe Pain (6-10) Hydralazine HCl 10 mg 09/21/20 13:39 09/22/20 09:18 Hydralazine 20 Mg/Ml Vial SLOW IVP 10 mg Q15MIN PRN Administration SBP >180 mm Hg Nicardipine HCl 50 mg/ Sodium 250 mls @ 0 mls/hr 09/20/20 18:15 09/25/20 11:00 Chloride IV 250 mls INF HOLLY Administration Protocol As Directed Cefazolin Sodium/Dextrose 2 gm 50 mls @ 100 mls/hr 09/21/20 22:00 09/25/20 12:30 / Device IVPB 50 mls Q8HR HOLLY Administration Sodium Chloride 1,000 mls @ 75 mls/hr 09/21/20 16:45 09/25/20 14:49 Normal Saline 0.9% IV Not Given .[id number] HOLLY Ibuprofen 400 mg 09/25/20 07:45 09/25/20 08:55 Ibuprofen 200 Mg Tab PO 400 mg Q6H PRN Administration Fever > 101 Labetalol HCl 20 mg 09/21/20 13:41 09/24/20 03:01 Labetalol Hcl 100 Mg/20 Ml Vial SLOW IVP 20 mg Q4H PRN Administration SBP > 180 and HR >100 Pantoprazole Sodium 40 mg 09/23/20 21:00 09/25/20 08:55 Pantoprazole 40 Mg Vial IVP 40 mg Q12HR HOLLY Administration Propofol 1,000 mg 09/24/20 07:45 09/25/20 13:01 Propofol 1,000 Mg/100 Ml Vial IV 10/24/20 07:45 1,000 mg INF PRN Administration TO ACHIEVE GOAL RASS Protocol Hospitalist Exam Vitals: Vital Signs (12 hours) Temp Pulse Resp BP Pulse Ox 09/25/20 17:00 99.9 F H 09/25/20 16:00 22 H 09/25/20 15:00 100.1 F H 09/25/20 14:50 86 09/25/20 14:00 100.0 F H 16 09/25/20 12:29 100.4 F H 09/25/20 12:00 100.4 F H 19 09/25/20 11:00 99.7 F H 09/25/20 10:50 82 09/25/20 10:00 101.2 F H 21 H 09/25/20 09:00 101.8 F H 09/25/20 08:55 102.0 F H 82 17 171/80 H 09/25/20 08:00 16 96 09/25/20 07:57 89 09/25/20 07:00 102.0 F H 09/25/20 06:00 22 H Weight Admit Weight 265 lb 14.04 oz Weight 275 lb 9.245 oz Most Recent Monitor Data Heart Rate from ECG 83 NIBP 166/98 NIBP BP-Mean 120 Respiration from ECG 24 SpO2 96 General Appearance: NAD Eye: PERRL ENT: normocephalic atraumatic Neck: supple Heart: RRR, diminshed peripheral pulses Respiratory: CTAB Gastrointestinal: soft, non-tender Extremities: no cyanosis, no clubbing Skin: normal turgor, no lesions Neurological: cranial nerve grossly intact Musculoskeletal: normal tone, normal strength Psychiatric: normal affect, normal behavior, A&O x 3 Hosp A/P - Plan (1) Acute respiratory failure with hypoxia and hypercapnia Code(s): J96.01 - ACUTE RESPIRATORY FAILURE WITH HYPOXIA; J96.02 - ACUTE RESPIRATORY FAILURE WITH HYPERCAPNIA Status: Acute Plan: (2) Acute encephalopathy Code(s): G93.40 - ENCEPHALOPATHY, UNSPECIFIED Status: Acute (3) Cerebrovascular accident (CVA) due to occlusion of cerebellar artery Code(s): I63.549 - CEREB INFRC DUE TO UNSP OCCLS OR STENOS OF UNSP CEREBLR ART Status: Acute (4) Hydrocephalus Code(s): G91.9 - HYDROCEPHALUS, UNSPECIFIED Status: Acute (5) Hypertensive urgency Code(s): I16.0 - HYPERTENSIVE URGENCY Status: Acute (6) Basilar artery aneurysm Code(s): I72.5 - ANEURYSM OF OTHER PRECEREBRAL ARTERIES Status: Chronic (7) Morbid obesity with BMI of 50.0-59.9, adult Code(s): E66.01 - MORBID (SEVERE) OBESITY DUE TO EXCESS CALORIES; Z68.43 - BODY MASS INDEX [BMI] 50.0-59.9, ADULT Status: Chronic (8) Hypertension Code(s): I10 - ESSENTIAL (PRIMARY) HYPERTENSION Status: Chronic (9) Obesity hypoventilation syndrome Code(s): E66.2 - MORBID (SEVERE) OBESITY WITH ALVEOLAR HYPOVENTILATION Status: Chronic (10) Hypokalemia Code(s): E87.6 - HYPOKALEMIA Status: Resolved (11) Coffee ground emesis Code(s): K92.0 - HEMATEMESIS Status: Resolved (12) Sepsis Code(s): A41.9 - SEPSIS, UNSPECIFIED ORGANISM Status: Acute Qualifiers: Sepsis type: sepsis due to unspecified organism Sepsis acute organ dysfunction status: with acute organ dysfunction Severe sepsis acute organ dysfunction type: acute respiratory failure Acute respiratory failure type: with hypercapnia Severe sepsis shock status: without septic shock Qualified Code(s): A41.9 - Sepsis, unspecified organism; R65.20 - Severe sepsis without septic shock; J96.02 - Acute respiratory failure with hypercapnia - Plan The patient is unfortunate 55 years female has significant past medical history of hypertension, morbid obesity, who initially presented with altered mental status, and headache in settings of hypertensive emergency. Further work-up, including MRI show moderate sized acute infarct in the left cerebellum in the left PICA, and tiny acute infarction of the right cerebellum in the right PICA territory. She also found to have large basilar artery aneurysm deeply indenting the brainstem chronically. Neck CTA showed no significant stenosis. She further developed significant hydrocephalus, neurosurgery was consulted. She subsequently had an external ventricular drain placed. She was initially required BiPAP. However, given above findings, it appears affected her respiratory drive, she was found hypercapneic and decreased level of responsiveness. She was subsequently intubated on 09/23/2020. --cont supportive cares - empiric IV abx. --vent mgt as per pulmonology --Wean off Cardene gtt as tolerate, parameters as per neurosurgery --replace electrolytes, follow AM labs
[2020-09-25] MEDS: Fentanyl 100 MCG/2 ML VIAL SLOW IVP PRN (17:46)
[2020-09-25] MEDS: Aspirin 300 MG Suppository PR SCH (20:05)
[2020-09-25] MEDS: Atorvastatin Calcium 40 MG TAB PO SCH (20:05)
[2020-09-26] MEDS: Propofol 1,000 MG/100 ML VIAL IV PRN ×5 (01:47→22:29)
[2020-09-26] MEDS: Sodium Chloride 0.9% 1,000 ML IV SCH ×2 (03:25→16:23)
[2020-09-26 04:08] LABS: Anion Gap 12 mmol/L (10-20); BUN (Urea Nitrogen) 16 mg/dL (9.8-20.1); Calc. Creatinine Clearance 201 mL/min (70-130); Calcium 8.1 mg/dL (7.8-10.44); Carbon Dioxide 27 mmol/L (22-29); Chloride 111 mmol/L (98-107); Glucose 96 mg/dL (70-105); Potassium 3.4 mmol/L (3.5-5.1); Sodium 147 mmol/L (136-145)
[2020-09-26 04:36] LABS: #Basophils 0.1 thou/uL (0.0-0.2); #Eosinphils 0.6 thou/uL (0.0-0.7); #Lymphocytes 2.9 thou/uL (1.20-3.40); #Neutrophils 7.7 thou/uL (1.40-6.50); %Basophils 0.4 % (0.0-1.0); %Eosinophils 4.6 % (0.0-10.0); %Lymphocytes 23.4 % (21.0-51.0); %Monocytes 8.2 % (0.0-10.0); %Neutrophils 63.4 % (42.0-75.0); Mean Corpuscular HGB CONC 33.2 g/dL (32.0-36.0); Mean Corpuscular Hemoglobin 32.3 pg (27.0-31.0); Mean Corpuscular Volume 97.3 fL (78.0-98.0); Mean Platelet Volume 7.9 fL (7.4-10.4); Platelet Count 254 thou/uL (130-400); Red Blood Cell (RBC) Count 4.02 mill/uL (4.20-5.40); White Blood Cell (WBC) Count 12.2 thou/uL (4.8-10.8)
[2020-09-26] MEDS: CEFAZOLIN 2 GM in Premix Bag 1 BAG IVPB SCH ×3 (05:32→21:04)
[2020-09-26] MEDS ORDERED: Potassium Chloride 40 MEQ in Sodium Chloride 0.9% 250 ML 250 ML IVPB SCH (06:00)
[2020-09-26] MEDS: niCARdipine 50 MG in Sodium Chloride 0.9% 250 ML 230 ML IV SCH ×3 (06:16→17:59)
--- NOTE | 2020-09-26 07:30 | PRG ---
DATE OF SERVICE: I saw Lexus Chase in ICU room this morning. She remains on the ventilator. The EVD is in place and working. No events have been reported overnight. Maximum temperature I see recorded in the last 24 hours is 100.4 degrees Fahrenheit. Blood pressures are too high, they are in the 150s to 170s. Ms. Chase's neurological examination is the same as it was yesterday. She moves both feet. She follows commands in the right upper extremity. She opens her eyes to voice. Her white blood cell count is 12.2. Sodium is 147. An ultrasound of lower extremities was negative for DVT. Ms. Chase is likely to require ventilator dependence for the next few days. A tracheostomy and gastrostomy will be beneficial in weaning her. We will also start the slow process of weaning her off her EVD in hopes that we can remove it next week prior to placement in rehab or alf. Job ID: [id number] MTDD
--- NOTE | 2020-09-26 08:18 | PRG ---
DATE OF SERVICE: 09/26/2020 A 30 minutes of critical care time. SUBJECTIVE: The patient remains intubated on mechanical ventilation. She will follow commands with her right side and with her left leg. She is very weak with her left hand event promoter. She has an EVD in place. OBJECTIVE: VITAL SIGNS: Temperature is 99.7 with a T-max of 102.0, pulse 83, and blood pressure 168/84. A 24-hour intake 2632, output 2529. HEENT: Unchanged. She is orally intubated. NECK: No JVD. LUNGS: Diminished breath sounds at the bases. CARDIAC: S1 and S2. Regular. ABDOMEN: Soft and obese. EXTREMITIES: Edematous left arm. LABORATORY DATA: Sodium 147, potassium 3.4, chloride 111, CO2 of 27, BUN 16, creatinine 0.6, and glucose 96. White blood cell count 12.2, hematocrit 39.1, and platelet count 254. Chest x-ray shows lower lobe atelectasis versus infiltrate. ASSESSMENT: 1. Cerebellar region stroke. 2. Hydrocephalus requiring ventricular drain. 3. Acute respiratory failure requiring mechanical ventilation - basically failure to protect airway. PLAN: 1. I am going to go ahead and extend her antibiotic coverage because of the lower lobe infiltrates and persistent fever. 2. Not weanable from mechanical ventilation at this time. 3. I would anticipate her needing a trach early next week if we do not see significant progress in terms of her neuro status. Job ID: [id number]
--- NOTE | 2020-09-26 08:20 | RAD ---
PORTABLE CHEST: HISTORY: Pneumonia. CCU followup. COMPARISON: 09/25/2020. FINDINGS: ET and NG tube again noted. Cardiomegaly. Bilateral effusions with bibasilar atelectasis and/or inf iltrates. Upper lung alaniz remain aerated and clear. No significant interval change. POS: AGW
[2020-09-26] MEDS: Pantoprazole 40 MG VIAL IVP SCH ×2 (08:37→21:04)
[2020-09-26 10:49] LABS: Potassium 3.8 mmol/L (3.5-5.1)
[2020-09-26] MEDS: Acetaminophen 325 MG TAB PO PRN (13:31)
--- NOTE | 2020-09-26 15:07 | PDOC.NEUPN ---
- Subjective Encounter Date: 09/26/20 Subjective: Patient continues to remain intubated and on mild sedation - Objective Vital Signs & Weight: Vital Signs (12 hours) Temp Pulse Resp Pulse Ox 09/26/20 15:03 70 09/26/20 14:00 16 09/26/20 12:00 20 09/26/20 11:04 78 09/26/20 11:00 99.9 F H 09/26/20 10:00 16 09/26/20 07:35 74 09/26/20 07:27 16 97 09/26/20 07:00 99.7 F H 09/26/20 06:00 24 H 09/26/20 04:00 99.4 F 18 Weight Admit Weight 265 lb 14.04 oz Weight 272 lb 4.334 oz Most Recent Monitor Data Heart Rate from ECG 72 NIBP 160/90 NIBP BP-Mean 113 Respiration from ECG 17 SpO2 96 I&O: 09/25/20 09/26/20 09/27/20 06:59 06:59 06:59 Intake Total 2223 2632 40 Output Total 8403 8291 1199 Balance -220 103 -1159 Result Diagrams: 09/26/20 03:30 09/26/20 10:24 Additional Labs: Accuchecks 09/25/20 09/25/20 22:32 16:26 POC Glucose 91 94 Radiology Reviewed by me: Yes EKG Reviewed by me: Yes ROS - Review of Systems ROS unobtainable: due to mental status - Medication Medications: Active Medications Generic Name Dose Route Start Last Admin Trade Name Freq PRN Reason Stop Dose Admin Acetaminophen 650 mg 09/19/20 14:00 09/26/20 13:31 Acetaminophen 325 Mg Tab PO 650 mg Q6H PRN Administration Fever > 101 or Headache Acetaminophen 650 mg 09/19/20 14:00 09/24/20 09:45 Acetaminophen 650 Mg Suppository [place] 650 mg Q4H PRN Administration Headache/Fever/Mild Pain (1-3) Aspirin 300 mg 09/21/20 21:00 09/25/20 20:05 Aspirin 300 Mg Suppository PA 300 mg HS HOLLY Administration Atorvastatin Calcium 40 mg 09/21/20 21:00 09/25/20 20:05 Atorvastatin Calcium 40 Mg Tab PO 40 mg HS HOLLY Administration Fentanyl 25 mcg 09/21/20 16:49 09/25/20 17:46 Fentanyl 100 Mcg/2 Ml Vial SLOW IVP 25 mcg Q1H PRN Administration Moderate to Severe Pain (6-10) Hydralazine HCl 10 mg 09/21/20 13:39 09/22/20 09:18 Hydralazine 20 Mg/Ml Vial SLOW IVP 10 mg Q15MIN PRN Administration SBP >180 mm Hg Nicardipine HCl 50 mg/ Sodium 250 mls @ 0 mls/hr 09/20/20 18:15 09/26/20 13:25 Chloride IV 250 mls INF HOLLY Administration Protocol As Directed Cefazolin Sodium/Dextrose 2 gm 50 mls @ 100 mls/hr 09/21/20 22:00 09/26/20 13:24 / Device IVPB 50 mls Q8HR HOLLY Administration Sodium Chloride 1,000 mls @ 75 mls/hr 09/21/20 16:45 09/26/20 03:25 Normal Saline 0.9% IV Not Given .[id number] HOLLY Levofloxacin 750 mg/ Device 150 mls @ 100 mls/hr 09/26/20 08:00 09/26/20 08:36 IVPB 150 mls Q24HR HOLLY Administration Ibuprofen 400 mg 09/25/20 07:45 09/25/20 17:34 Ibuprofen 200 Mg Tab PO 400 mg Q6H PRN Administration Fever > 101 Labetalol HCl 20 mg 09/21/20 13:41 09/24/20 03:01 Labetalol Hcl 100 Mg/20 Ml Vial SLOW IVP 20 mg Q4H PRN Administration SBP > 180 and HR >100 Pantoprazole Sodium 40 mg 09/23/20 21:00 09/26/20 08:37 Pantoprazole 40 Mg Vial IVP 40 mg Q12HR HOLLY Administration Propofol 1,000 mg 09/24/20 07:45 09/26/20 13:24 Propofol 1,000 Mg/100 Ml Vial IV 10/24/20 07:45 1,000 mg INF PRN Administration TO ACHIEVE GOAL RASS Protocol - Exam General Appearance: NAD Eye: PERRL ENT: normocephalic atraumatic Neck: supple Respiratory: CTAB Cardiovascular: RRR Gastrointestinal: soft Extremities: no cyanosis Skin: normal turgor Neurological: no new deficit Musculoskeletal: normal tone, no muscle wasting PSYCH: not oriented Results - Labs Result Diagrams: 09/26/20 03:30 09/26/20 10:24 Lab results: WBC 12.2 thou/uL (4.8-10.8) H 09/26/20 03:30 Hgb 13.0 g/dL (12.0-16.0) 09/26/20 03:30 Hct 39.1 % (36.0-47.0) 09/26/20 03:30 MCV 97.3 fL (78.0-98.0) 09/26/20 03:30 Plt Count 254 thou/uL (130-400) 09/26/20 03:30 Neutrophils % 63.4 % (42.0-75.0) 09/26/20 03:30 Band Neuts % (Manual) 23 % (5-11) H 09/19/20 17:28 ABG pH 7.47 (7.35-7.45) H 09/25/20 07:50 ABG pCO2 40.9 mmHg (35.0-45.0) 09/25/20 07:50 ABG pO2 61.9 mmHg (80.0-100.0) L 09/25/20 07:50 Sodium 147 mmol/L (136-145) H 09/26/20 03:30 Potassium 3.8 mmol/L (3.5-5.1) 09/26/20 10:24 Chloride 111 mmol/L (98-107) H 09/26/20 03:30 Carbon Dioxide 27 mmol/L (22-29) 09/26/20 03:30 BUN 16 mg/dL (9.8-20.1) 09/26/20 03:30 Creatinine 0.64 mg/dL (0.6-1.1) 09/26/20 03:30 Glucose 96 mg/dL (70-105) 09/26/20 03:30 Lactic Acid 1.0 mmol/L (0.5-2.2) 09/21/20 10:43 Calcium 8.1 mg/dL (7.8-10.44) 09/26/20 03:30 Total Bilirubin 0.5 mg/dL (0.2-1.2) 09/19/20 11:43 AST 16 U/L (5-34) 09/19/20 11:43 ALT 19 U/L (8-55) 09/19/20 11:43 Alkaline Phosphatase 107 U/L (40-110) 09/19/20 11:43 Creatine Kinase 266 U/L (29-168) H 09/19/20 11:43 Troponin I Less than 0.010 ng/mL (< 0.028) 09/19/20 11:43 B-Natriuretic Peptide 31.5 pg/mL (0-100) 09/19/20 11:48 Serum Total Protein 8.0 g/dL (6.0-8.3) 09/19/20 11:43 Albumin 4.1 g/dL (3.5-5.0) 09/19/20 11:43 Lipase 11 U/L (8-78) 09/19/20 11:43 Urine Ketones Negative mg/dL (Negative) 09/19/20 09:20 Urine Blood 3+ (Negative) A 09/19/20 09:20 Urine Nitrite Negative (Negative) 09/19/20 09:20 Ur Leukocyte Esterase 75 Fouzia/uL (Negative) A 09/19/20 09:20 Urine RBC Greater than 50 HPF (0-3) A 09/19/20 09:20 Urine WBC 7-10 HPF (0-3) A 09/19/20 09:20 Ur Squamous Epith Cells 0-3 HPF (0-3) 09/19/20 09:20 Urine Bacteria 1+ HPF (None Seen) A 09/19/20 09:20 - Radiology Interpretation MRI - head Additional Comment: MRI of the brain was consistent with acute infarction PN A/P (1) Cerebrovascular accident (CVA) due to occlusion of cerebellar artery Code(s): I63.549 - CEREB INFRC DUE TO UNSP OCCLS OR STENOS OF UNSP CEREBLR ART Status: Acute (2) Acute encephalopathy Code(s): G93.40 - ENCEPHALOPATHY, UNSPECIFIED Status: Acute (3) Hydrocephalus Code(s): G91.9 - HYDROCEPHALUS, UNSPECIFIED Status: Acute (4) Hypertensive urgency Code(s): I16.0 - HYPERTENSIVE URGENCY Status: Acute (5) Leukocytosis Code(s): D72.829 - ELEVATED WHITE BLOOD CELL COUNT, UNSPECIFIED Status: Acute (6) Thoracic aortic ectasia Code(s): I77.810 - THORACIC AORTIC ECTASIA Status: Acute (7) Basilar artery aneurysm Code(s): I72.5 - ANEURYSM OF OTHER PRECEREBRAL ARTERIES Status: Chronic (8) Hypertension Code(s): I10 - ESSENTIAL (PRIMARY) HYPERTENSION Status: Chronic (9) Morbid obesity with BMI of 50.0-59.9, adult Code(s): E66.01 - MORBID (SEVERE) OBESITY DUE TO EXCESS CALORIES; Z68.43 - BODY MASS INDEX [BMI] 50.0-59.9, ADULT Status: Chronic - Plan Daily Plan: plan discussed w/ family (Brother at bedside), PT/OT, speech therapy, DVT proph w/SCDs Ms. Chase is a 55-year-old female with history significant for morbid obesity and hypertension presented with acute encephalopathy in the setting of hypertensive emergency. Her initial presentation was nausea, vomiting, headache and generalized weakness associated with confusion. Patient continues to remain sedated and intubated with no improvement. No acute events. Repeat HCT on 09/25/2020 reviewed. Results noted. EVD in place for the treatment of hydrocephalus and neurosurgery is on board . Appreciate neurosurgery input. EEG to evaluate for confusion reviewed which was negative for seizure activity MRI of the brain reviewed which was consistent with acute infarction in the left cerebellum in the posterior inferior cerebellar artery region. Tiny acute lacunar infarct in the right PICA region. CTA of the head showed basilar artery and vertebral artery aneurysms. CTA of the neck did not reveal hemodynamically significant stenosis. Continue neurochecks every 2 hours. N.p.o. till cleared by speech Start statin and home medications once patient is cleared by speech. Telemetry to rule out arrhythmias Strict control of blood pressure and blood glucose. Consider further stroke work-up including 2D echocardiogram to evaluate for left ventricular ejection fraction when stable. Continue medical management per primary team, pulmonology and neurosurgery. PT/OT/speech. DVT prophylaxis. Plan discussed in detail with the patient's brother at bedside and also with nursing staff.
--- NOTE | 2020-09-26 18:34 | PDOC.HOSPP ---
- Subjective Subjective: Patient remains intubated. Follow commands. Discussed with her brother at bedside. - Objective Vital Signs & Weight: Vital Signs (12 hours) Temp Pulse Resp Pulse Ox 09/26/20 18:00 16 09/26/20 16:00 18 09/26/20 15:03 70 09/26/20 15:00 99.4 F 09/26/20 14:00 16 09/26/20 12:00 20 09/26/20 11:04 78 09/26/20 11:00 99.9 F H 09/26/20 10:00 16 09/26/20 07:35 74 09/26/20 07:27 16 97 09/26/20 07:00 99.7 F H Weight Admit Weight 265 lb 14.04 oz Weight 272 lb 4.334 oz Most Recent Monitor Data Heart Rate from ECG 69 NIBP 173/89 NIBP BP-Mean 117 Respiration from ECG 16 SpO2 98 I&O: 09/25/20 09/26/20 09/27/20 06:59 06:59 06:59 Intake Total 2223 2632 1696 Output Total 2443 2529 1618 Balance -220 103 78 Result Diagrams: 09/26/20 03:30 09/26/20 10:24 Additional Labs: Accuchecks 09/25/20 22:32 POC Glucose 91 Radiology Reviewed by me: Yes EKG Reviewed by me: Yes Hospitalist ROS - Medication Medications: Active Medications Generic Name Dose Route Start Last Admin Trade Name Freq PRN Reason Stop Dose Admin Acetaminophen 650 mg 09/19/20 14:00 09/26/20 13:31 Acetaminophen 325 Mg Tab PO 650 mg Q6H PRN Administration Fever > 101 or Headache Acetaminophen 650 mg 09/19/20 14:00 09/24/20 09:45 Acetaminophen 650 Mg Suppository [place] 650 mg Q4H PRN Administration Headache/Fever/Mild Pain (1-3) Aspirin 300 mg 09/21/20 21:00 09/25/20 20:05 Aspirin 300 Mg Suppository [place] 300 mg HS HOLLY Administration Atorvastatin Calcium 40 mg 09/21/20 21:00 09/25/20 20:05 Atorvastatin Calcium 40 Mg Tab PO 40 mg HS HOLLY Administration Fentanyl 25 mcg 09/21/20 16:49 09/25/20 17:46 Fentanyl 100 Mcg/2 Ml Vial SLOW IVP 25 mcg Q1H PRN Administration Moderate to Severe Pain (6-10) Hydralazine HCl 10 mg 09/21/20 13:39 09/22/20 09:18 Hydralazine 20 Mg/Ml Vial SLOW IVP 10 mg Q15MIN PRN Administration SBP >180 mm Hg Nicardipine HCl 50 mg/ Sodium 250 mls @ 0 mls/hr 09/20/20 18:15 09/26/20 17:59 Chloride IV 250 mls INF HOLLY Administration Protocol As Directed Cefazolin Sodium/Dextrose 2 gm 50 mls @ 100 mls/hr 09/21/20 22:00 09/26/20 13:24 / Device IVPB 50 mls Q8HR HOLLY Administration Sodium Chloride 1,000 mls @ 75 mls/hr 09/21/20 16:45 09/26/20 16:23 Normal Saline 0.9% IV Not Given .[id number] HOLLY Levofloxacin 750 mg/ Device 150 mls @ 100 mls/hr 09/26/20 08:00 09/26/20 08:36 IVPB 150 mls Q24HR HOLLY Administration Ibuprofen 400 mg 09/25/20 07:45 09/25/20 17:34 Ibuprofen 200 Mg Tab PO 400 mg Q6H PRN Administration Fever > 101 Labetalol HCl 20 mg 09/21/20 13:41 09/24/20 03:01 Labetalol Hcl 100 Mg/20 Ml Vial SLOW IVP 20 mg Q4H PRN Administration SBP > 180 and HR >100 Pantoprazole Sodium 40 mg 09/23/20 21:00 09/26/20 08:37 Pantoprazole 40 Mg Vial IVP 40 mg Q12HR HOLLY Administration Propofol 1,000 mg 09/24/20 07:45 09/26/20 17:58 Propofol 1,000 Mg/100 Ml Vial IV 10/24/20 07:45 1,000 mg INF PRN Administration TO ACHIEVE GOAL RASS Protocol Hospitalist Exam Vitals: Vital Signs (12 hours) Temp Pulse Resp Pulse Ox 09/26/20 18:00 16 09/26/20 16:00 18 09/26/20 15:03 70 09/26/20 15:00 99.4 F 09/26/20 14:00 16 09/26/20 12:00 20 09/26/20 11:04 78 09/26/20 11:00 99.9 F H 09/26/20 10:00 16 09/26/20 07:35 74 09/26/20 07:27 16 97 09/26/20 07:00 99.7 F H Weight Admit Weight 265 lb 14.04 oz Weight 272 lb 4.334 oz Most Recent Monitor Data Heart Rate from ECG 69 NIBP 173/89 NIBP BP-Mean 117 Respiration from ECG 16 SpO2 98 General - other findings: Intubated, follow command. EVD in place Eye: PERRL ENT: normocephalic atraumatic Neck: supple Heart: RRR Respiratory: CTAB Gastrointestinal: soft Extremities: no cyanosis Skin: normal turgor Neurological - other findings: intubated. Hosp A/P - Plan (1) Acute respiratory failure with hypoxia and hypercapnia Code(s): J96.01 - ACUTE RESPIRATORY FAILURE WITH HYPOXIA; J96.02 - ACUTE RESPIR ATORY FAILURE WITH HYPERCAPNIA Status: Acute Plan: (2) Acute encephalopathy Code(s): G93.40 - ENCEPHALOPATHY, UNSPECIFIED Status: Acute (3) Cerebrovascular accident (CVA) due to occlusion of cerebellar artery Code(s): I63.549 - CEREB INFRC DUE TO UNSP OCCLS OR STENOS OF UNSP CEREBLR ART Status: Acute (4) Hydrocephalus Code(s): G91.9 - HYDROCEPHALUS, UNSPECIFIED Status: Acute (5) Hypertensive urgency Code(s): I16.0 - HYPERTENSIVE URGENCY Status: Acute (6) Basilar artery aneurysm Code(s): I72.5 - ANEURYSM OF OTHER PRECEREBRAL ARTERIES Status: Chronic (7) Morbid obesity with BMI of 50.0-59.9, adult Code(s): E66.01 - MORBID (SEVERE) OBESITY DUE TO EXCESS CALORIES; Z68.43 - BODY MASS INDEX [BMI] 50.0-59.9, ADULT Status: Chronic (8) Hypertension Code(s): I10 - ESSENTIAL (PRIMARY) HYPERTENSION Status: Chronic (9) Obesity hypoventilation syndrome Code(s): E66.2 - MORBID (SEVERE) OBESITY WITH ALVEOLAR HYPOVENTILATION Status: Chronic (10) Hypokalemia Code(s): E87.6 - HYPOKALEMIA Status: Resolved (11) Coffee ground emesis Code(s): K92.0 - HEMATEMESIS Status: Resolved (12) Sepsis Code(s): A41.9 - SEPSIS, UNSPECIFIED ORGANISM Status: Acute Qualifiers: Sepsis type: sepsis due to unspecified organism Sepsis acute organ dysfunction status: with acute organ dysfunction Severe sepsis acute organ dysfunction type: acute respiratory failure Acute respiratory failure type: with hypercapnia Severe sepsis shock status: without septic shock Qualified Code(s): A41.9 - Sepsis, unspecified organism; R65.20 - Severe sepsis without septic shock; J96.02 - Acute respiratory failure with hypercapnia - Plan The patient is unfortunate 55 years female has significant past medical history of hypertension, morbid obesity, who initially presented with altered mental status, and headache in settings of hypertensive emergency. Further work-up, including MRI show moderate sized acute infarct in the left cerebellum in the left PICA, and tiny acute infarction of the right cerebellum in the right PICA territory. She also found to have large basilar artery aneurysm deeply indenting the brainstem chronically. Neck CTA showed no significant stenosis. She further developed significant hydrocephalus, neurosurgery was consulted. She subsequently had an external ventricular drain placed. She was initially required BiPAP. However, given above findings, it appears affected her respiratory drive, she was found hypercapneic and decreased level of responsiveness. She was subsequently intubated on 09/23/2020. Acute hypoxic respiratory failure with hypercapnia -intubated on 09/23/20 -Continue vent management as per seed sales manager. Antibiotics broadened given infiltrates on x-ray. Acute CVA - MRI showed mod size infarction in the left cerebellum in the left PICC and tiny acute infarction ofr the right PICA territory. -CTA shows extensive aneurysm involving the posterior circulation. Fusiform aneurysm involving the right vertebral artery and basilar artery. 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 -Continue aspirin VA. Statin when able. -Neurosurgery/neurology are following. Hydrocephalus -Status post EVD placement Accelerated hypertension -Continue Cardene drip, parameters as per neurosurgery Obesity hypoventilation syndrome -Trial of BiPAP, subsequently intubated due to above problem Hypokalemia -Corrected Morbid obesity with BMI of 51 -Aggressive lifestyle modification is recommended
[2020-09-26] MEDS: Atorvastatin Calcium 40 MG TAB PO SCH (21:04)
[2020-09-26] MEDS: Aspirin 300 MG Suppository PR SCH (21:05)
[2020-09-26] MEDS: GUAIFENESIN SF SOLN 200 MG/10 ML UDCUP PO PRN (21:32)
[2020-09-27] MEDS: niCARdipine 50 MG in Sodium Chloride 0.9% 250 ML 230 ML IV SCH ×4 (01:36→17:47)
[2020-09-27] MEDS: Propofol 1,000 MG/100 ML VIAL IV PRN ×5 (01:41→21:09)
[2020-09-27] MEDS: GUAIFENESIN SF SOLN 200 MG/10 ML UDCUP PO PRN ×3 (01:44→11:05)
[2020-09-27 03:43] LABS: #Eosinphils 0.6 thou/uL (0.0-0.7); #Lymphocytes 2.5 thou/uL (1.20-3.40); #Monocytes 0.9 thou/uL (0.11-0.59); #Neutrophils 7.7 thou/uL (1.40-6.50); %Basophils 0.4 % (0.0-1.0); %Eosinophils 5.5 % (0.0-10.0); %Lymphocytes 21.4 % (21.0-51.0); %Monocytes 7.3 % (0.0-10.0); %Neutrophils 65.5 % (42.0-75.0); Hemoglobin 13.3 g/dL (12.0-16.0); Mean Corpuscular HGB CONC 31.9 g/dL (32.0-36.0); Mean Corpuscular Hemoglobin 30.6 pg (27.0-31.0); Mean Corpuscular Volume 95.9 fL (78.0-98.0); Mean Platelet Volume 7.6 fL (7.4-10.4); Platelet Count 252 thou/uL (130-400); RBC Distribution Width 11.8 % (11.5-14.5); Red Blood Cell (RBC) Count 4.35 mill/uL (4.20-5.40); White Blood Cell (WBC) Count 11.7 thou/uL (4.8-10.8)
[2020-09-27 04:01] LABS: Anion Gap 15 mmol/L (10-20); BUN (Urea Nitrogen) 14 mg/dL (9.8-20.1); Calc. Creatinine Clearance 198 mL/min (70-130); Calcium 8.3 mg/dL (7.8-10.44); Carbon Dioxide 23 mmol/L (22-29); Chloride 110 mmol/L (98-107); Glucose 93 mg/dL (70-105); Potassium 3.8 mmol/L (3.5-5.1); Sodium 144 mmol/L (136-145)
[2020-09-27] MEDS: CEFAZOLIN 2 GM in Premix Bag 1 BAG IVPB SCH ×3 (05:32→21:10)
[2020-09-27] MEDS: Sodium Chloride 0.9% 1,000 ML IV SCH ×2 (05:32→17:51)
--- NOTE | 2020-09-27 07:40 | PRG ---
DATE OF SERVICE: 09/27/2020 I saw Ms. Chase in her ICU room this morning. We raised her external ventricular drain to 15 cm of water yesterday. No other events were reported overnight. We consulted General Surgery for trach and PEG at the earliest convenience. Among the electronically recorded vital signs, I see a maximum temperature of 99.9 degrees Fahrenheit. Blood pressures are in the 140s to 160s. On examination, Ms. Chase opens her eyes to voice. She follows commands with the right side of her body. She is slower on the left. The left arm is still swollen and not moving. Left leg is much slower than the right leg, but does occasionally move with enough stimulation. White blood cell count is 11.7. Sodium is 144. I am going to continue the process of slow weaning off the EVD. We will raise it to 20 cm of water for the next 24 hours. I will order an ultrasound of the left upper extremity to see if she has an arm DVT. A trach and a PEG will be beneficial weaning her off ventilatory support and looking for placement. Job ID: [id number] [facility]
--- NOTE | 2020-09-27 07:49 | PRG ---
DATE OF SERVICE: 09/27/2020 30 minutes critical care time. SUBJECTIVE: The patient remains intubated on mechanical ventilation. There has been no acute changes overnight. OBJECTIVE: VITAL SIGNS: Her temperature is 99.1 with no fever overnight, pulse 68, blood pressure 163/85. GENERAL: She is awake. She will follow commands by moving her right arm, right leg, and has some minor motion in her left leg. We cannot get her to move her left arm. HEENT: Otherwise, unremarkable except for being intubated. NECK: No JVD. LUNGS: Clear with diminished breath sounds in the bases. CARDIAC: S1, S2. Regular. ABDOMEN: Soft, nontender. EXTREMITIES: Trace edema throughout. LABORATORY DATA: Sodium 144, potassium 3.8, chloride 110, CO2 of 23, BUN 14, creatinine 0.6, glucose 93. White blood cell count 11.7, hematocrit 41.8, and platelet count 252. Her x-ray shows bilateral lower lobe infiltrates versus atelectasis. ASSESSMENT: 1. Acute hypoxic respiratory failure requiring mechanical ventilation. 2. Cerebellar region stroke. 3. Hydrocephalus requiring ventricular drain. 4. Fever, which has dissipated since adding Levaquin yesterday. The patient probably has some type for aspiration pneumonitis. PLAN: 1. Dr. Madrigal has consulted General Surgery for trach and PEG. I agree that this probably needs to happen because it looks like she is going to be unable to protect her airway for quite some time. 2. Continue Levaquin. 3. Continue enteral tube feeds. Job ID: [id number]
[2020-09-27] MEDS ORDERED: Electrolyte Replacement Protocol FS PRN (08:00)
[2020-09-27] MEDS ORDERED: Mannitol 12.5 GM/50 ML SLOW IVP SCH (08:00)
--- NOTE | 2020-09-27 08:13 | RAD ---
Portable frontal chest radiograph: 09/27/2020 COMPARISON: 09/26/2020 HISTORY: Pneumonia FINDINGS: Stable endotracheal tube and nasogastric tube. No pneumothorax is evident. There is widenin g of the superior mediastinum with increased density adjacent to the aortic knob and increased soft tissue density in the right paratracheal region. There is persistent dense pleural and parenchymal op acity in both lung bases. IMPRESSION: Lines and tubes as detailed above. Nonspecific pleural and parenchyma opacity in the lung bases. Widening of the superior mediastinum which could signify vascular prominence. Follow-up advised.
[2020-09-27] MEDS: Pantoprazole 40 MG VIAL IVP SCH ×2 (08:49→21:09)
[2020-09-27] MEDS ORDERED: Potassium Chloride 40 MEQ in Sodium Chloride 0.9% 250 ML 250 ML IVPB SCH (09:00)
[2020-09-27] MEDS: Acetaminophen 325 MG TAB PO PRN (11:14)
[2020-09-27] MEDS: Enoxaparin Sodium 40 MG/0.4 ML SYRINGE SC SCH ×2 (11:16→21:09)
[2020-09-27] MEDS ORDERED: Metoprolol Tartrate 25 MG TAB PO SCH (12:45)
--- NOTE | 2020-09-27 14:11 | PDOC.NEUPN ---
- Subjective Encounter Date: 09/27/20 Subjective: No acute events in the last 24 hours. - Objective Vital Signs & Weight: Vital Signs (12 hours) Temp Pulse Resp Pulse Ox 09/27/20 12:00 18 09/27/20 11:14 99.6 F 09/27/20 11:00 99.6 F 09/27/20 10:40 74 09/27/20 10:00 15 09/27/20 07:48 17 99 09/27/20 07:20 70 09/27/20 07:00 99.6 F 09/27/20 06:00 17 09/27/20 05:00 99.1 F 09/27/20 04:00 22 H 09/27/20 02:17 68 Weight Admit Weight 265 lb 14.04 oz Weight 271 lb 2.697 oz Most Recent Monitor Data Heart Rate from ECG 73 NIBP 149/83 NIBP BP-Mean 105 Respiration from ECG 12 SpO2 99 I&O: 09/26/20 09/27/20 09/28/20 06:59 06:59 06:59 Intake Total 2632 3110 150 Output Total 2529 3003 816 Balance 103 107 -666 Result Diagrams: 09/27/20 03:32 09/27/20 03:32 Radiology Reviewed by me: Yes EKG Reviewed by me: Yes ROS - Review of Systems ROS unobtainable: due to endotracheal tube - Medication Medications: Active Medications Generic Name Dose Route Start Last Admin Trade Name Freq PRN Reason Stop Dose Admin Acetaminophen 650 mg 09/19/20 14:00 09/27/20 11:14 Acetaminophen 325 Mg Tab PO 650 mg Q6H PRN Administration Fever > 101 or Headache Acetaminophen 650 mg 09/19/20 14:00 09/24/20 09:45 Acetaminophen 650 Mg Suppository [place] 650 mg Q4H PRN Administration Headache/Fever/Mild Pain (1-3) Aspirin 300 mg 09/21/20 21:00 09/26/20 21:05 Aspirin 300 Mg Suppository [place] 300 mg HS HOLLY Administration Atorvastatin Calcium 40 mg 09/21/20 21:00 09/26/20 21:04 Atorvastatin Calcium 40 Mg Tab PO 40 mg HS HOLLY Administration Enoxaparin Sodium 40 mg 09/27/20 09:00 09/27/20 11:16 Enoxaparin Sodium 40 Mg/0.4 Ml Syringe SC 40 mg 0900,2100 HOLLY Administration Fentanyl 25 mcg 09/21/20 16:49 09/25/20 17:46 Fentanyl 100 Mcg/2 Ml Vial SLOW IVP 25 mcg Q1H PRN Administration Moderate to Severe Pain (6-10) Guaifenesin 200 mg 09/21/20 07:54 09/27/20 11:05 Guaifenesin Sf Soln 200 Mg/10 Ml Udcup PO 200 mg Q4H PRN Administration Cough Hydralazine HCl 10 mg 09/21/20 13:39 09/22/20 09:18 Hydralazine 20 Mg/Ml Vial SLOW IVP 10 mg Q15MIN PRN Administration SBP >180 mm Hg Nicardipine HCl 50 mg/ Sodium 250 mls @ 0 mls/hr 09/20/20 18:15 09/27/20 11:21 Chloride IV 250 mls INF HOLLY Administration Protocol As Directed Cefazolin Sodium/Dextrose 2 gm 50 mls @ 100 mls/hr 09/21/20 22:00 09/27/20 13:17 / Device IVPB 50 mls Q8HR HOLLY Administration Sodium Chloride 1,000 mls @ 75 mls/hr 09/21/20 16:45 09/27/20 05:32 Normal Saline 0.9% IV Not Given .[id number] HOLLY Levofloxacin 750 mg/ Device 150 mls @ 100 mls/hr 09/26/20 08:00 09/27/20 08:51 IVPB 150 mls Q24HR HOLYL Administration Ibuprofen 400 mg 09/25/20 07:45 09/25/20 17:34 Ibuprofen 200 Mg Tab PO 400 mg Q6H PRN Administration Fever > 101 Labetalol HCl 20 mg 09/21/20 13:41 09/24/20 03:01 Labetalol Hcl 100 Mg/20 Ml Vial SLOW IVP 20 mg Q4H PRN Administration SBP > 180 and HR >100 Pantoprazole Sodium 40 mg 09/23/20 21:00 09/27/20 08:49 Pantoprazole 40 Mg Vial IVP 40 mg Q12HR HOLLY Administration Propofol 1,000 mg 09/24/20 07:45 09/27/20 11:24 Propofol 1,000 Mg/100 Ml Vial IV 10/24/20 07:45 1,000 mg INF PRN Administration TO ACHIEVE GOAL RASS Protocol - Exam General Appearance: awake alert Eye: PERRL ENT: normocephalic atraumatic Neck: supple Respiratory: CTAB Cardiovascular: RRR Gastrointestinal: soft Extremities: no cyanosis Skin: normal turgor Neurological: no new deficit, facial droop, hemiplegia Musculoskeletal: normal tone, no muscle wasting PSYCH: not oriented (Intubated) Results - Labs Result Diagrams: 09/27/20 03:32 09/27/20 03:32 Lab results: WBC 11.7 thou/uL (4.8-10.8) H 09/27/20 03:32 Hgb 13.3 g/dL (12.0-16.0) 09/27/20 03:32 Hct 41.8 % (36.0-47.0) 09/27/20 03:32 MCV 95.9 fL (78.0-98.0) 09/27/20 03:32 Plt Count 252 thou/uL (130-400) 09/27/20 03:32 Neutrophils % 65.5 % (42.0-75.0) 09/27/20 03:32 Band Neuts % (Manual) 23 % (5-11) H 09/19/20 17:28 ABG pH 7.47 (7.35-7.45) H 09/25/20 07:50 ABG pCO2 40.9 mmHg (35.0-45.0) 09/25/20 07:50 ABG pO2 61.9 mmHg (80.0-100.0) L 09/25/20 07:50 Sodium 144 mmol/L (136-145) 09/27/20 03:32 Potassium 3.8 mmol/L (3.5-5.1) 09/27/20 03:32 Chloride 110 mmol/L (98-107) H 09/27/20 03:32 Carbon Dioxide 23 mmol/L (22-29) 09/27/20 03:32 BUN 14 mg/dL (9.8-20.1) 09/27/20 03:32 Creatinine 0.64 mg/dL (0.6-1.1) 09/27/20 03:32 Glucose 93 mg/dL (70-105) 09/27/20 03:32 Lactic Acid 1.0 mmol/L (0.5-2.2) 09/21/20 10:43 Calcium 8.3 mg/dL (7.8-10.44) 09/27/20 03:32 Total Bilirubin 0.5 mg/dL (0.2-1.2) 09/19/20 11:43 AST 16 U/L (5-34) 09/19/20 11:43 ALT 19 U/L (8-55) 09/19/20 11:43 Alkaline Phosphatase 107 U/L (40-110) 09/19/20 11:43 Creatine Kinase 266 U/L (29-168) H 09/19/20 11:43 Troponin I Less than 0.010 ng/mL (< 0.028) 09/19/20 11:43 B-Natriuretic Peptide 31.5 pg/mL (0-100) 09/19/20 11:48 Serum Total Protein 8.0 g/dL (6.0-8.3) 09/19/20 11:43 Albumin 4.1 g/dL (3.5-5.0) 09/19/20 11:43 Lipase 11 U/L (8-78) 09/19/20 11:43 Urine Ketones Negative mg/dL (Negative) 09/19/20 09:20 Urine Blood 3+ (Negative) A 09/19/20 09:20 Urine Nitrite Negative (Negative) 09/19/20 09:20 Ur Leukocyte Esterase 75 Fouzia/uL (Negative) A 09/19/20 09:20 Urine RBC Greater than 50 HPF (0-3) A 09/19/20 09:20 Urine WBC 7-10 HPF (0-3) A 09/19/20 09:20 Ur Squamous Epith Cells 0-3 HPF (0-3) 09/19/20 09:20 Urine Bacteria 1+ HPF (None Seen) A 09/19/20 09:20 PN A/P (1) Cerebrovascular accident (CVA) due to occlusion of cerebellar artery Code(s): I63.549 - CEREB INFRC DUE TO UNSP OCCLS OR STENOS OF UNSP CEREBLR ART Status: Acute (2) Acute encephalopathy Code(s): G93.40 - ENCEPHALOPATHY, UNSPECIFIED Status: Acute (3) Hydrocephalus Code(s): G91.9 - HYDROCEPHALUS, UNSPECIFIED Status: Acute (4) Hypertensive urgency Code(s): I16.0 - HYPERTENSIVE URGENCY Status: Acute (5) Leukocytosis Code(s): D72.829 - ELEVATED WHITE BLOOD CELL COUNT, UNSPECIFIED Status: Acute (6) Thoracic aortic ectasia Code(s): I77.810 - THORACIC AORTIC ECTASIA Status: Acute (7) Basilar artery aneurysm Code(s): I72.5 - ANEURYSM OF OTHER PRECEREBRAL ARTERIES Status: Chronic (8) Hypertension Code(s): I10 - ESSENTIAL (PRIMARY) HYPERTENSION Status: Chronic (9) Morbid obesity with BMI of 50.0-59.9, adult Code(s): E66.01 - MORBID (SEVERE) OBESITY DUE TO EXCESS CALORIES; Z68.43 - BODY MASS INDEX [BMI] 50.0-59.9, ADULT Status: Chronic - Plan Daily Plan: plan discussed w/ family (Sister at bedside), PT/OT, speech therapy, DVT proph w/SCDs Ms. Chase is a 55-year-old female with history significant for morbid obesity and hypertension presented with acute encephalopathy in the setting of hypertensive emergency. Her initial presentation was nausea, vomiting, headache and generalized weakness associated with confusion. Patient continues to remain intubated but was able to follow commands from her right upper extremity. Spontaneous movement of right upper and lower extremities seen. Dense hemiplegia on the left. Neurosurgery is on board and in the process of weaning off from EVD. Consult for tracheostomy and PEG tube has been placed. EEG to evaluate for confusion reviewed which was negative for seizure activity MRI of the brain reviewed which was consistent with acute infarction in the left cerebellum in the posterior inferior cerebellar artery region. Tiny acute lacunar infarct in the right PICA region. CTA of the head showed basilar artery and vertebral artery aneurysms. CTA of the neck did not reveal hemodynamically significant stenosis. Continue neurochecks every 2 hours. N.p.o. till cleared by speech Start statin and home medications once patient is cleared by speech. Telemetry to rule out arrhythmias Strict control of blood pressure and blood glucose. Consider further stroke work-up including 2D echocardiogram to evaluate for left ventricular ejection fraction when stable. Continue medical management per primary team, pulmonology and neurosurgery. PT/OT/speech. DVT prophylaxis. Plan discussed in detail with the patient's sister at bedside and also with the nursing staff.
--- NOTE | 2020-09-27 15:11 | ULT ---
LEFT UPPER EXTREMITY VENOUS DUPLEX EXAM: History: Left arm pain and swelling. FINDINGS: Real-time color doppler evaluation of the left upper extremity was performed to include the internal jugular, subclavian, axillary, brachial, basilic and cephalic veins as well as forearm veins. This shows a patent deep venous system with normal compressibility and augmentation. There is superfi cial thrombus within the cephalic vein. IMPRESSION: No evidence of DVT. There is thrombus within the superficial vein, specifically the cephalic vein. POS: OFF
[2020-09-27] MEDS ORDERED: CEFAZOLIN 2 GM in Premix Bag 1 BAG IVPB SCH (17:30)
--- NOTE | 2020-09-27 18:38 | PDOC.HOSPP ---
- Subjective Subjective: Patient was seen examined at bedside. Patient follow command, remains intubated. White count is getting better. No fever. Discussed with her mom at bedside. - Objective Vital Signs & Weight: Vital Signs (12 hours) Temp Pulse Resp Pulse Ox 09/27/20 18:00 15 09/27/20 16:00 17 09/27/20 15:00 99.7 F H 09/27/20 14:33 72 09/27/20 14:00 18 09/27/20 12:00 18 09/27/20 11:14 99.6 F 09/27/20 11:00 99.6 F 09/27/20 10:40 74 09/27/20 10:00 15 09/27/20 07:48 17 99 09/27/20 07:20 70 09/27/20 07:00 99.6 F Weight Admit Weight 265 lb 14.04 oz Weight 271 lb 2.697 oz Most Recent Monitor Data Heart Rate from ECG 82 NIBP 170/89 NIBP BP-Mean 116 Respiration from ECG 15 SpO2 99 I&O: 09/26/20 09/27/20 09/28/20 06:59 06:59 06:59 Intake Total 2632 3110 1683 Output Total 2529 3003 1647 Balance 103 107 36 Result Diagrams: 09/27/20 03:32 09/27/20 03:32 Radiology Reviewed by me: Yes EKG Reviewed by me: Yes Hospitalist ROS - Medication Medications: Active Medications Generic Name Dose Route Start Last Admin Trade Name Freq PRN Reason Stop Dose Admin Acetaminophen 650 mg 09/19/20 14:00 09/27/20 11:14 Acetaminophen 325 Mg Tab PO 650 mg Q6H PRN Administration Fever > 101 or Headache Acetaminophen 650 mg 09/19/20 14:00 09/24/20 09:45 Acetaminophen 650 Mg Suppository NV 650 mg Q4H PRN Administration Headache/Fever/Mild Pain (1-3) Aspirin 300 mg 09/21/20 21:00 09/26/20 21:05 Aspirin 300 Mg Suppository NV 300 mg HS HOLLY Administration Atorvastatin Calcium 40 mg 09/21/20 21:00 09/26/20 21:04 Atorvastatin Calcium 40 Mg Tab PO 40 mg HS HOLLY Administration Enoxaparin Sodium 40 mg 09/27/20 09:00 09/27/20 11:16 Enoxaparin Sodium 40 Mg/0.4 Ml Syringe SC 40 mg 0900,2100 HOLLY Administration Fentanyl 25 mcg 09/21/20 16:49 09/25/20 17:46 Fentanyl 100 Mcg/2 Ml Vial SLOW IVP 25 mcg Q1H PRN Administration Moderate to Severe Pain (6-10) Guaifenesin 200 mg 09/21/20 07:54 09/27/20 11:05 Guaifenesin Sf Soln 200 Mg/10 Ml Udcup PO 200 mg Q4H PRN Administration Cough Hydralazine HCl 10 mg 09/21/20 13:39 09/22/20 09:18 Hydralazine 20 Mg/Ml Vial SLOW IVP 10 mg Q15MIN PRN Administration SBP >180 mm Hg Nicardipine HCl 50 mg/ Sodium 250 mls @ 0 mls/hr 09/20/20 18:15 09/27/20 17:47 Chloride IV 250 mls INF HOLLY Administration Protocol As Directed Cefazolin Sodium/Dextrose 2 gm 50 mls @ 100 mls/hr 09/21/20 22:00 09/27/20 13:17 / Device IVPB 50 mls Q8HR HOLLY Administration Sodium Chloride 1,000 mls @ 75 mls/hr 09/21/20 16:45 09/27/20 17:51 Normal Saline 0.9% IV 1,000 mls .[id number] HOLLY Administration Levofloxacin 750 mg/ Device 150 mls @ 100 mls/hr 09/26/20 08:00 09/27/20 08:51 IVPB 150 mls Q24HR HOLLY Administration Ibuprofen 400 mg 09/25/20 07:45 09/25/20 17:34 Ibuprofen 200 Mg Tab PO 400 mg Q6H PRN Administration Fever > 101 Labetalol HCl 20 mg 09/21/20 13:41 09/24/20 03:01 Labetalol Hcl 100 Mg/20 Ml Vial SLOW IVP 20 mg Q4H PRN Administration SBP > 180 and HR >100 Pantoprazole Sodium 40 mg 09/23/20 21:00 09/27/20 08:49 Pantoprazole 40 Mg Vial IVP 40 mg Q12HR HOLLY Administration Propofol 1,000 mg 09/24/20 07:45 09/27/20 15:22 Propofol 1,000 Mg/100 Ml Vial IV 10/24/20 07:45 1,000 mg INF PRN Administration TO ACHIEVE GOAL RASS Protocol Hospitalist Exam Vitals: Vital Signs (12 hours) Temp Pulse Resp Pulse Ox 09/27/20 18:00 15 09/27/20 16:00 17 09/27/20 15:00 99.7 F H 09/27/20 14:33 72 09/27/20 14:00 18 09/27/20 12:00 18 09/27/20 11:14 99.6 F 09/27/20 11:00 99.6 F 09/27/20 10:40 74 09/27/20 10:00 15 09/27/20 07:48 17 99 09/27/20 07:20 70 09/27/20 07:00 99.6 F Weight Admit Weight 265 lb 14.04 oz Weight 271 lb 2.697 oz Most Recent Monitor Data Heart Rate from ECG 82 NIBP 170/89 NIBP BP-Mean 116 Respiration from ECG 15 SpO2 99 General Appearance: NAD General - other findings: Remain intubated Eye: PERRL ENT: normocephalic atraumatic Neck: supple Heart: RRR Respiratory: CTAB Gastrointestinal: soft Skin: normal turgor Neurological - other findings: Intubated, follows some commands Hosp A/P - Plan (1) Acute respiratory failure with hypoxia and hypercapnia Code(s): J96.01 - ACUTE RESPIRATORY FAILURE WITH HYPOXIA; J96.02 - ACUTE RESPIRATORY FAILURE WITH HYPERCAPNIA Status: Acute Plan: (2) Acute encephalopathy Code(s): G93.40 - ENCEPHALOPATHY, UNSPECIFIED Status: Acute (3) Cerebrovascular accident (CVA) due to occlusion of cerebellar artery Code(s): I63.549 - CEREB INFRC DUE TO UNSP OCCLS OR STENOS OF UNSP CEREBLR ART Status: Acute (4) Hydrocephalus Code(s): G91.9 - HYDROCEPHALUS, UNSPECIFIED Status: Acute (5) Hypertensive urgency Code(s): I16.0 - HYPERTENSIVE URGENCY Status: Acute (6) Basilar artery aneurysm Code(s): I72.5 - ANEURYSM OF OTHER PRECEREBRAL ARTERIES Status: Chronic (7) Morbid obesity with BMI of 50.0-59.9, adult Code(s): E66.01 - MORBID (SEVERE) OBESITY DUE TO EXCESS CALORIES; Z68.43 - BODY MASS INDEX [BMI] 50.0-59.9, ADULT Status: Chronic (8) Hypertension Code(s): I10 - ESSENTIAL (PRIMARY) HYPERTENSION Status: Chronic (9) Obesity hypoventilation syndrome Code(s): E66.2 - MORBID (SEVERE) OBESITY WITH ALVEOLAR HYPOVENTILATION Status: Chronic (10) Hypokalemia Code(s): E87.6 - HYPOKALEMIA Status: Resolved (11) Coffee ground emesis Code(s): K92.0 - HEMATEMESIS Status: Resolved (12) Sepsis Code(s): A41.9 - SEPSIS, UNSPECIFIED ORGANISM Status: Acute Qualifiers: Sepsis type: sepsis due to unspecified organism Sepsis acute organ dysfunction status: with acute organ dysfunction Severe sepsis acute organ dysfunction type: acute respiratory failure Acute respiratory failure type: with hypercapnia Severe sepsis shock status: without septic shock Qualified Code(s): A41.9 - Sepsis, unspecified organism; R65.20 - Severe sepsis without septic shock; J96.02 - Acute respiratory failure with hypercapnia - Plan The patient is unfortunate 55 years female has significant past medical history of hypertension, morbid obesity, who initially presented with altered mental status, and headache in settings of hypertensive emergency. Further work-up, including MRI show moderate sized acute infarct in the left cerebellum in the left PICA, and tiny acute infarction of the right cerebellum in the right PICA territory. She also found to have large basilar artery aneurysm deeply indenting the brainstem chronically. Neck CTA showed no significant stenosis. She further developed significant hydrocephalus, neurosurgery was consulted. She subsequently had an external ventricular drain placed. She was initially required BiPAP. However, given above findings, it appears affected her respiratory drive, she was found hypercapneic and decreased level of responsiveness. She was subsequently intubated on 09/23/2020. Acute hypoxic respiratory failure with hypercapnia -intubated on 09/23/20 -Continue vent management as per poultry picking machine tender. Antibiotics broadened given infiltrates on x-ray. -possible trach and peg early next week Acute CVA - MRI showed mod size infarction in the left cerebellum in the left PICC and tiny acute infarction ofr the right PICA territory. -CTA shows extensive aneurysm involving the posterior circulation. Fusiform aneurysm involving the right vertebral artery and basilar artery. 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 -Continue aspirin NV. Statin when able. -Neurosurgery/neurology are following. Hydrocephalus -Status post EVD placement, mgt as per Neurosurg Accelerated hypertension -Continue Cardene drip, parameters as per neurosurgery. Start metoprolol for BP control, wean off Cardene gtt Obesity hypoventilation syndrome -Trial of BiPAP initially, subsequently intubated due to above problem Hypokalemia -Corrected Morbid obesity with BMI of 51 -Aggressive lifestyle modification is recommended
[2020-09-27] MEDS: Metoprolol Tartrate 25 MG TAB PO SCH (21:09)
[2020-09-27] MEDS: Atorvastatin Calcium 40 MG TAB PO SCH (21:09)
[2020-09-27] MEDS: Aspirin 300 MG Suppository PR SCH (21:46)
--- NOTE | 2020-09-27 23:57 | CON ---
DATE OF CONSULTATION: HISTORY OF PRESENT ILLNESS: Lexus Chase is a 55-year-old female, 5 feet 1 inch, 271 pounds, 51 BMI, admitted on 09/19/2020 after a stroke. The patient had a posterior fossa stroke. The patient is on the ventilator. I have been asked to see her regarding tracheostomy and PEG tube. ALLERGIES: NONE. SOCIAL HISTORY: Tobacco, none. Alcohol, none. MEDICATIONS: Outpatient, none known. PAST SURGICAL HISTORY: Leg surgery. PAST MEDICAL HISTORY: Stroke, obesity. PHYSICAL EXAMINATION: GENERAL: The patient is on the ventilator. She opens her eyes and nods her head to yes/no appropriately. LUNGS: Clear to auscultation. CARDIAC: Regular rate and rhythm without murmur or gallop. ABDOMEN: Soft and nontender. ASSESSMENT AND PLAN: Respiratory failure after stroke, dysphagia. PLAN: Tracheostomy, PEG tube next week. Job ID: [id number]
[2020-09-28] MEDS: niCARdipine 50 MG in Sodium Chloride 0.9% 250 ML 230 ML IV SCH ×4 (00:11→15:43)
[2020-09-28] MEDS: Propofol 1,000 MG/100 ML VIAL IV PRN ×4 (03:53→20:45)
[2020-09-28 04:10] LABS: #Eosinphils 0.4 thou/uL (0.0-0.7); #Lymphocytes 2.5 thou/uL (1.20-3.40); #Monocytes 0.9 thou/uL (0.11-0.59); #Neutrophils 7.2 thou/uL (1.40-6.50); %Eosinophils 3.9 % (0.0-10.0); %Lymphocytes 22.8 % (21.0-51.0); %Monocytes 8.2 % (0.0-10.0); %Neutrophils 65.2 % (42.0-75.0); Hemoglobin 12.6 g/dL (12.0-16.0); Mean Corpuscular HGB CONC 33.1 g/dL (32.0-36.0); Mean Corpuscular Hemoglobin 31.4 pg (27.0-31.0); Mean Platelet Volume 7.8 fL (7.4-10.4); Platelet Count 268 thou/uL (130-400); RBC Distribution Width 11.7 % (11.5-14.5); White Blood Cell (WBC) Count 11.1 thou/uL (4.8-10.8)
[2020-09-28 04:31] LABS: Anion Gap 11 mmol/L (10-20); BUN (Urea Nitrogen) 12 mg/dL (9.8-20.1); Calc. Creatinine Clearance 201 mL/min (70-130); Calcium 8.2 mg/dL (7.8-10.44); Carbon Dioxide 28 mmol/L (22-29); Chloride 107 mmol/L (98-107); Glucose 95 mg/dL (70-105); Potassium 3.8 mmol/L (3.5-5.1); Sodium 142 mmol/L (136-145)
[2020-09-28] MEDS: Labetalol HCl 100 MG/20 ML VIAL SLOW IVP PRN (05:43)
[2020-09-28] MEDS: CEFAZOLIN 2 GM in Premix Bag 1 BAG IVPB SCH ×3 (05:43→22:05)
--- NOTE | 2020-09-28 08:18 | CT ---
CT OF THE BRAIN WITHOUT CONTRAST: Date: 09/28/2020 INDICATION: 55-year-old female with history of cerebellar stroke. COMPARISON: Prior exam dated 09/25/2020 at 1028 hours. FINDINGS: There is a right ventricular catheter entering through a right frontal bur hole. The pericatheter hem orrhage is stable measuring 11.0 x 8.0 mm, previously measuring 12.0 x 7.0 mm. The chronic small vess el white matter ischemic change is similar appearing. No midline shift is evident. No hydrocephalus i s noted. There is evolutionary changes of the left-sided cerebellar hemisphere in part. High density remains in the aneurysmal dilatation of the posterior circulation, likely postprocedural in nature. T here is mucosal thickening with air fluid levels within the paranasal sinuses likely related to patie nt's intubation. Right eye prosthesis is stable. IMPRESSION: 1. Stable hemorrhage surrounding the right ventricular catheter within the right frontal lobe. 2. Evolutionary changes of the left cerebellar hemisphere infarct. 3. Stable density seen within the aneurysmal dilatation of the posterior circulation, likely postpro cedural in nature. POS: ELEAZAR
--- NOTE | 2020-09-28 09:08 | RAD ---
CHEST 1 VIEW: Date: 09/28/2020 INDICATION: History of pneumonia. COMPARISON: Prior study dated 09/27/2020. IMPRESSION: Cardiomegaly and pulmonary vascular congestion persists. Basilar opacities are similar. No pneumothor ax is evident. Small pleural effusions are stable. POS: BH
--- NOTE | 2020-09-28 09:33 | PRG ---
DATE OF SERVICE: 09/28/2020 SUBJECTIVE: The patient has had no overnight events in the ICU. Her EVD remains functional at 20 cm of water. She was seen by General Surgery in consultation for trach and PEG, and they plan to do this sometime next week. Her T-max was 99.1 overnight, and her blood pressure systolically has been in the 140s to 160s. Her WBC is 11.1, and her sodium is [address] head is stable and an ultrasound of the left upper extremity was negative for DVT. OBJECTIVE: On exam this morning, she is a localizing with the right upper extremity and has subtle withdrawal in the left upper extremity. Overall, the patient remains stable in the ICU. We will leave her EVD at its current settings. We will leave this through the weekend and if she remains stable, I anticipate further weaning and removal by Dr. Madrigal's team early next week. Job ID: [id number]
[2020-09-28] MEDS: Sodium Chloride 0.9% 1,000 ML IV SCH ×2 (09:47→22:07)
[2020-09-28] MEDS: Enoxaparin Sodium 40 MG/0.4 ML SYRINGE SC SCH ×2 (09:48→20:41)
[2020-09-28] MEDS: GUAIFENESIN SF SOLN 200 MG/10 ML UDCUP PO PRN (09:49)
[2020-09-28] MEDS: Metoprolol Tartrate 25 MG TAB PO SCH ×2 (09:49→20:48)
[2020-09-28] MEDS: Pantoprazole 40 MG VIAL IVP SCH ×2 (10:30→20:41)
--- NOTE | 2020-09-28 11:20 | PRG ---
DATE OF SERVICE: 09/28/2020 SUBJECTIVE: The patient is resting comfortably. She recently got some additional propofol because she was quite agitated. Her eyes are open and she is tracking. She has left hemiparesis. A CT scan from this morning is stable with small ventricles. We will continue the present course of action with the EVD at 20 and tomorrow morning if she is clinically stable, we will clamp the EVD with a followup scan on Wednesday. Job ID: [id number]
--- NOTE | 2020-09-28 14:47 | PRG ---
DATE OF SERVICE: 09/28/2020 SUBJECTIVE: Lexus Chase clinically unchanged. OBJECTIVE: VITAL SIGNS: Heart rates in the 60s, blood pressure 149/85, oximetry is 99. LUNGS: Distant clear. HEART: Regular rhythm. ABDOMEN: Soft. LABORATORY DATA: White count 11.1, hemoglobin 12.6, platelets 268. Electrolytes are normal. Creatinine is 0.6. IMPRESSION: Respiratory failure. She is intermittently coughing. She was suctioned, which seemed to help the problem. Because of her size, deconditioning. neurological condition, she will benefit from a tracheostomy and PEG. Job ID: [id number]
[2020-09-28 15:03] LABS: INR-International Normal Ratio 1.1; PTT 29.5 sec (22.9-36.1); Prothrombin Time 14.1 sec (12.0-14.7)
--- NOTE | 2020-09-28 17:26 | PDOC.HOSPP ---
- Subjective Encounter Date: 09/28/20 Encounter Time: 09:20 Subjective: is on vent, sedated, follows verbal stimuli, moves right extremities well and tries to grasp hand, moves left ankle and foot but not much of her left hand - Objective Vital Signs & Weight: Vital Signs (12 hours) Temp Pulse Pulse Resp BP BP BP 09/28/20 16:00 14 09/28/20 15:00 99.0 F 09/28/20 14:00 98.9 F 16 09/28/20 12:00 99.0 F 16 09/28/20 11:00 99.0 F 09/28/20 10:51 69 09/28/20 10:00 18 09/28/20 09:50 69 150/83 H 167/89 H 09/28/20 08:00 17 09/28/20 07:00 99.1 F 09/28/20 06:27 66 159/89 H 09/28/20 06:00 14 09/28/20 05:43 64 Pulse Ox Pulse Ox 09/28/20 16:00 09/28/20 15:00 09/28/20 14:00 09/28/20 12:00 09/28/20 11:00 09/28/20 10:51 09/28/20 10:00 09/28/20 09:50 99 09/28/20 08:00 100 09/28/20 07:00 09/28/20 06:27 09/28/20 06:00 09/28/20 05:43 Weight Admit Weight 265 lb 14.04 oz Weight 265 lb 10.512 oz Most Recent Monitor Data Heart Rate from ECG 65 NIBP 155/86 NIBP BP-Mean 109 Respiration from ECG 15 SpO2 96 I&O: 09/27/20 09/28/20 09/29/20 06:59 06:59 06:59 Intake Total 3110 2948 50 Output Total 3007 7795 1640 Balance 107 298 1590 Result Diagrams: 09/28/20 03:45 09/28/20 03:45 Hospitalist ROS - Medication Medications: Active Medications Generic Name Dose Route Start Last Admin Trade Name Freq PRN Reason Stop Dose Admin Acetaminophen 650 mg 09/19/20 14:00 09/27/20 11:14 Acetaminophen 325 Mg Tab PO 650 mg Q6H PRN Administration Fever > 101 or Headache Acetaminophen 650 mg 09/19/20 14:00 09/24/20 09:45 Acetaminophen 650 Mg Suppository SD 650 mg Q4H PRN Administration Headache/Fever/Mild Pain (1-3) Aspirin 300 mg 09/21/20 21:00 09/27/20 21:46 Aspirin 300 Mg Suppository SD 300 mg HS HOLLY Administration Atorvastatin Calcium 40 mg 09/21/20 21:00 09/27/20 21:09 Atorvastatin Calcium 40 Mg Tab PO 40 mg HS HOLLY Administration Enoxaparin Sodium 40 mg 09/27/20 09:00 09/28/20 09:48 Enoxaparin Sodium 40 Mg/0.4 Ml Syringe SC 40 mg 0900,2100 HOLLY Administration Fentanyl 25 mcg 09/21/20 16:49 09/25/20 17:46 Fentanyl 100 Mcg/2 Ml Vial SLOW IVP 25 mcg Q1H PRN Administration Moderate to Severe Pain (6-10) Guaifenesin 200 mg 09/21/20 07:54 09/28/20 09:49 Guaifenesin Sf Soln 200 Mg/10 Ml Udcup PO 200 mg Q4H PRN Administration Cough Hydralazine HCl 10 mg 09/21/20 13:39 09/22/20 09:18 Hydralazine 20 Mg/Ml Vial SLOW IVP 10 mg Q15MIN PRN Administration SBP >180 mm Hg Nicardipine HCl 50 mg/ Sodium 250 mls @ 0 mls/hr 09/20/20 18:15 09/28/20 15:43 Chloride IV 250 mls INF HOLLY Administration Protocol As Directed Cefazolin Sodium/Dextrose 2 gm 50 mls @ 100 mls/hr 09/21/20 22:00 09/28/20 13:12 / Device IVPB 50 mls Q8HR HOLLY Administration Sodium Chloride 1,000 mls @ 75 mls/hr 09/21/20 16:45 09/28/20 09:47 Normal Saline 0.9% IV Not Given .[id number] HOLLY Levofloxacin 750 mg/ Device 150 mls @ 100 mls/hr 09/26/20 08:00 09/28/20 09:47 IVPB 150 mls Q24HR HOLLY Administration Ibuprofen 400 mg 09/25/20 07:45 09/25/20 17:34 Ibuprofen 200 Mg Tab PO 400 mg Q6H PRN Administration Fever > 101 Labetalol HCl 20 mg 09/21/20 13:41 09/28/20 05:43 Labetalol Hcl 100 Mg/20 Ml Vial SLOW IVP 20 mg Q4H PRN Administration SBP > 180 and HR >100 Metoprolol Tartrate 25 mg 09/27/20 21:00 09/28/20 09:49 Metoprolol Tartrate 25 Mg Tab PO 25 mg BID HOLLY Administration Pantoprazole Sodium 40 mg 09/23/20 21:00 09/28/20 10:30 Pantoprazole 40 Mg Vial IVP 40 mg Q12HR HOLLY Administration Propofol 1,000 mg 09/24/20 07:45 09/28/20 17:19 Propofol 1,000 Mg/100 Ml Vial IV 10/24/20 07:45 1,000 mg INF PRN Administration TO ACHIEVE GOAL RASS Protocol Hospitalist Exam Vitals: Vital Signs (12 hours) Temp Pulse Pulse Resp BP BP BP 09/28/20 16:00 14 09/28/20 15:00 99.0 F 09/28/20 14:00 98.9 F 16 09/28/20 12:00 99.0 F 16 09/28/20 11:00 99.0 F 09/28/20 10:51 69 09/28/20 10:00 18 09/28/20 09:50 69 150/83 H 167/89 H 09/28/20 08:00 17 09/28/20 07:00 99.1 F 09/28/20 06:27 66 159/89 H 09/28/20 06:00 14 09/28/20 05:43 64 Pulse Ox Pulse Ox 09/28/20 16:00 09/28/20 15:00 09/28/20 14:00 09/28/20 12:00 09/28/20 11:00 09/28/20 10:51 09/28/20 10:00 09/28/20 09:50 99 09/28/20 08:00 100 09/28/20 07:00 09/28/20 06:27 09/28/20 06:00 09/28/20 05:43 Weight Admit Weight 265 lb 14.04 oz Weight 265 lb 10.512 oz Most Recent Monitor Data Heart Rate from ECG 65 NIBP 155/86 NIBP BP-Mean 109 Respiration from ECG 15 SpO2 96 Eye: anicteric sclera Eye - 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 ENT: no oropharyngeal lesions, moist mucosa Neck: supple, no JVD Heart: RRR, no murmur Respiratory: no wheezes, no rales, rhonchi Gastrointestinal: soft, non-tender, non-distended, normal bowel sounds Extremities: no cyanosis, no edema Neurological - other findings: left hemiparesis Hosp A/P (1) Cerebrovascular accident (CVA) due to occlusion of cerebellar artery Code(s): I63.549 - CEREB INFRC DUE TO UNSP OCCLS OR STENOS OF UNSP CEREBLR ART Status: Acute Qualifiers: Laterality of affected vessel: left Qualified Code(s): I63.542 - Cerebral infarction due to unspecified occlusion or stenosis of left cerebellar artery (2) Hydrocephalus Code(s): G91.9 - HYDROCEPHALUS, UNSPECIFIED Status: Acute Qualifiers: Hydrocephalus type: obstructive Qualified Code(s): G91.1 - Obstructive hydrocephalus (3) Acute respiratory failure with hypoxia and hypercapnia Code(s): J96.01 - ACUTE RESPIRATORY FAILURE WITH HYPOXIA; J96.02 - ACUTE RESPIRATORY FAILURE WITH HYPERCAPNIA Status: Acute (4) Aspiration pneumonia Code(s): J69.0 - PNEUMONITIS DUE TO INHALATION OF FOOD AND VOMIT Status: Acute Qualifiers: Aspiration pneumonia type: due to regurgitated food (5) Acute encephalopathy Code(s): G93.40 - ENCEPHALOPATHY, UNSPECIFIED Status: Acute (6) Hypertensive urgency Code(s): I16.0 - HYPERTENSIVE URGENCY Status: Acute (7) Basilar artery aneurysm Code(s): I72.5 - ANEURYSM OF OTHER PRECEREBRAL ARTERIES Status: Chronic (8) Morbid obesity with BMI of 50.0-59.9, adult Code(s): E66.01 - MORBID (SEVERE) OBESITY DUE TO EXCESS CALORIES; Z68.43 - BODY MASS INDEX [BMI] 50.0-59.9, ADULT Status: Chronic (9) Obesity hypoventilation syndrome Code(s): E66.2 - MORBID (SEVERE) OBESITY WITH ALVEOLAR HYPOVENTILATION Status: Chronic - Plan Has multiple intracranial issues including left pica cva, fusiform aneursym of basilar and right vertebral, right distal vertebral has a sacular aneursym as well with thrombus, sacular aneurysm of left vertebral artery, hydrocephalus with evd placed to right frontal area. She was on heparin drip for the clot burden in posterior fossa arteries to prevent further decompesation and was later switch out to asp as she needed EVD. for early trach and peg on wednesday, I have d/w sister [phone] and have given full updates, she and mom are in agreement for the trach and peg, they are aware of possible ltac eval when she is stable for transfer. continue asp, lipitor, levaquin and ancef, lopressor, protonix, dvt prophylaxis, iv fluids sister mentions that patient had hematuria on arrival itself, coags are normal this afternoon. she got intubated on 09/23/2020, is on simv with 40% fio2.
[2020-09-28] MEDS: Atorvastatin Calcium 40 MG TAB PO SCH (20:45)
[2020-09-28] MEDS: Aspirin 300 MG Suppository PR SCH (20:45)
--- NOTE | 2020-09-28 22:53 | EKG ---
Test Reason : Blood Pressure : / mmHG Vent. Rate : 078 BPM Atrial Rate : 078 BPM P-R Int : 196 ms QRS Dur : 092 ms QT Int : 400 ms P-R-T Axes : -08 -35 091 degrees QTc Int : 456 ms Normal sinus rhythm Left axis deviation Left ventricular hypertrophy with repolarization abnormality Inferior infarct , age undetermined Anteroseptal infarct , age undetermined Abnormal ECG Confirmed by OLMAN MARLOW, MELINA ([id number]), editorial project manager BREE NINA ([id number]) on 09/28/2020 10:52:35 PM Referred By: Confirmed By:MELINA THURMAN MD
[2020-09-29] MEDS: niCARdipine 50 MG in Sodium Chloride 0.9% 250 ML 230 ML IV SCH ×4 (00:13→18:36)
[2020-09-29] MEDS: Propofol 1,000 MG/100 ML VIAL IV PRN ×4 (00:20→20:38)
[2020-09-29 03:56] LABS: Band 4 % (5-11); Eosinophils 5 % (0-10); Hemoglobin 12.5 g/dL (12.0-16.0); Lymphocytes 23 % (21-51); MDiff Complete? YES; Mean Corpuscular HGB CONC 32.3 g/dL (32.0-36.0); Mean Corpuscular Hemoglobin 30.5 pg (27.0-31.0); Mean Corpuscular Volume 94.4 fL (78.0-98.0); Mean Platelet Volume 7.8 fL (7.4-10.4); Monocytes 5 % (0-10); Neutrophil 61 % (42-75); Platelet Count 259 thou/uL (130-400); Platelet Morphology Comment Appears Adequate; RBC Distribution Width 11.7 % (11.5-14.5); Reactive Lymphocytes 2 % (0-10); Red Blood Cell (RBC) Count 4.09 mill/uL (4.20-5.40); White Blood Cell (WBC) Count 10.9 thou/uL (4.8-10.8)
[2020-09-29 04:10] LABS: Anion Gap 13 mmol/L (10-20); BUN (Urea Nitrogen) 12 mg/dL (9.8-20.1); Calc. Creatinine Clearance 185 mL/min (70-130); Calcium 8.3 mg/dL (7.8-10.44); Carbon Dioxide 24 mmol/L (22-29); Chloride 107 mmol/L (98-107); Glucose 93 mg/dL (70-105); Potassium 3.8 mmol/L (3.5-5.1); Sodium 140 mmol/L (136-145)
[2020-09-29] MEDS: CEFAZOLIN 2 GM in Premix Bag 1 BAG IVPB SCH ×3 (06:31→22:22)
--- NOTE | 2020-09-29 07:39 | RAD ---
CHEST 1 VIEW: Date: 09/29/2020 INDICATION: 55-year-old female with pneumonia. COMPARISON: Prior exam dated 09/28/2020. IMPRESSION: ET tube and gastric catheter are unchanged. No pneumothorax is evident. Basilar opacities persist. No pneumothorax is evident. POS: BH
[2020-09-29] MEDS: Pantoprazole 40 MG VIAL IVP SCH ×2 (08:37→20:39)
[2020-09-29] MEDS: Metoprolol Tartrate 25 MG TAB PO SCH ×2 (08:38→20:39)
[2020-09-29] MEDS: Enoxaparin Sodium 40 MG/0.4 ML SYRINGE SC SCH (08:38)
--- NOTE | 2020-09-29 09:09 | PRG ---
DATE OF SERVICE: 09/29/2020 SUBJECTIVE: The patient remained stable in the ICU. No overnight events. We had continued her EVD at 20 cm of water and it remains functional. T-max overnight is 99.1. WBC is 10.9. Her sodium is 140. On exam this morning, she is more interactive with me and following commands on the right side. The patient appears somewhat improved neurologically this morning. We will go ahead and clamp EVD and I will arrange a followup CT scan for Wednesday. I have also stopped her Lovenox in anticipation for possible removal of the EVD tomorrow. Job ID: [id number] [facility]
[2020-09-29] MEDS: Sodium Chloride 0.9% 1,000 ML IV SCH ×2 (11:42→23:35)
--- NOTE | 2020-09-29 13:53 | PRG ---
DATE OF SERVICE: 09/29/2020 SUBJECTIVE: Lexus Chase still has a drain in place, but it is clamped. She is awake and moving the right side and communicated that she was hot, so a fan will be brought to the bedside. OBJECTIVE: VITAL SIGNS: Blood pressure 162/83, heart rate is in the 60s, oximetry is 97. LUNGS: Remarkable for equal breath sounds. HEART: Regular rhythm. ABDOMEN: Soft. EXTREMITIES: Without asymmetry. LABORATORY DATA: White count 10, hemoglobin 12.5, platelets 259. Electrolytes are normal. IMPRESSION: Respiratory failure associated with the stroke and obstructive hydrocephalus. Early in this admission, she did not tolerate BiPAP. I doubt she will tolerate BiPAP now since we are many more days into this admission. Between sleep apnea, obesity, and deconditioning, she would likely best be served with tracheostomy. I explained this to family who was at the bedside. We will continue to follow. Critical care time 30 min. Job ID: [id number] [facility]
--- NOTE | 2020-09-29 15:53 | PDOC.HOSPP ---
- Subjective Encounter Date: 09/29/20 Encounter Time: 09:00 Subjective: is on vent, awake and follows verbal stimuli, does not move her left hand - Objective Vital Signs & Weight: Vital Signs (12 hours) Temp Pulse Resp Pulse Ox 09/29/20 12:00 20 09/29/20 11:24 74 09/29/20 11:00 99.0 F 09/29/20 10:00 20 09/29/20 08:00 28 H 98 09/29/20 06:19 17 09/29/20 06:14 64 09/29/20 04:00 98.7 F 16 Weight Admit Weight 265 lb 14.04 oz Weight 263 lb 7.238 oz Most Recent Monitor Data Heart Rate from ECG 73 NIBP 172/90 NIBP BP-Mean 117 Respiration from ECG 16 SpO2 98 I&O: 09/28/20 09/29/20 09/30/20 06:59 06:59 06:59 Intake Total 2948 2596 Output Total 9936 3442 505 Balance -298 -846 -505 Result Diagrams: 09/29/20 03:35 09/29/20 03:35 Hospitalist ROS - Medication Medications: Active Medications Generic Name Dose Route Start Last Admin Trade Name Freq PRN Reason Stop Dose Admin Acetaminophen 650 mg 09/19/20 14:00 09/27/20 11:14 Acetaminophen 325 Mg Tab PO 650 mg Q6H PRN Administration Fever > 101 or Headache Acetaminophen 650 mg 09/19/20 14:00 09/24/20 09:45 Acetaminophen 650 Mg Suppository MO 650 mg Q4H PRN Administration Headache/Fever/Mild Pain (1-3) Aspirin 300 mg 09/21/20 21:00 09/28/20 20:45 Aspirin 300 Mg Suppository MO 300 mg HS HOLLY Administration Atorvastatin Calcium 40 mg 09/21/20 21:00 09/28/20 20:45 Atorvastatin Calcium 40 Mg Tab PO 40 mg HS HOLLY Administration Fentanyl 25 mcg 09/21/20 16:49 09/25/20 17:46 Fentanyl 100 Mcg/2 Ml Vial SLOW IVP 25 mcg Q1H PRN Administration Moderate to Severe Pain (6-10) Guaifenesin 200 mg 09/21/20 07:54 09/28/20 09:49 Guaifenesin Sf Soln 200 Mg/10 Ml Udcup PO 200 mg Q4H PRN Administration Cough Hydralazine HCl 10 mg 09/21/20 13:39 09/22/20 09:18 Hydralazine 20 Mg/Ml Vial SLOW IVP 10 mg Q15MIN PRN Administration SBP >180 mm Hg Nicardipine HCl 50 mg/ Sodium 250 mls @ 0 mls/hr 09/20/20 18:15 09/29/20 12:43 Chloride IV 250 mls INF HOLLY Administration Protocol As Directed Cefazolin Sodium/Dextrose 2 gm 50 mls @ 100 mls/hr 09/21/20 22:00 09/29/20 15:29 / Device IVPB 50 mls Q8HR HOLLY Administration Sodium Chloride 1,000 mls @ 75 mls/hr 09/21/20 16:45 09/29/20 11:42 Normal Saline 0.9% IV Not Given .[id number] HOLLY Levofloxacin 750 mg/ Device 150 mls @ 100 mls/hr 09/26/20 08:00 09/29/20 08:37 IVPB 150 mls Q24HR HOLLY Administration Ibuprofen 400 mg 09/25/20 07:45 09/25/20 17:34 Ibuprofen 200 Mg Tab PO 400 mg Q6H PRN Administration Fever > 101 Labetalol HCl 20 mg 09/21/20 13:41 09/28/20 05:43 Labetalol Hcl 100 Mg/20 Ml Vial SLOW IVP 20 mg Q4H PRN Administration SBP > 180 and HR >100 Metoprolol Tartrate 25 mg 09/27/20 21:00 09/29/20 08:38 Metoprolol Tartrate 25 Mg Tab PO 25 mg BID HOLLY Administration Pantoprazole Sodium 40 mg 09/23/20 21:00 09/29/20 08:37 Pantoprazole 40 Mg Vial IVP 40 mg Q12HR HOLLY Administration Propofol 1,000 mg 09/24/20 07:45 09/29/20 08:37 Propofol 1,000 Mg/100 Ml Vial IV 10/24/20 07:45 1,000 mg INF PRN Administration TO ACHIEVE GOAL RASS Protocol Hospitalist Exam Vitals: Vital Signs (12 hours) Temp Pulse Resp Pulse Ox 09/29/20 12:00 20 09/29/20 11:24 74 09/29/20 11:00 99.0 F 09/29/20 10:00 20 09/29/20 08:00 28 H 98 02/07/21 06:19 17 09/29/20 06:14 64 09/29/20 04:00 98.7 F 16 Weight Admit Weight 265 lb 14.04 oz Weight 263 lb 7.238 oz Most Recent Monitor Data Heart Rate from ECG 73 NIBP 172/90 NIBP BP-Mean 117 Respiration from ECG 16 SpO2 98 Eye: anicteric sclera ENT: no oropharyngeal lesions, moist mucosa Neck: supple, no JVD Heart: RRR, no murmur Respiratory: no wheezes, no rales Gastrointestinal: soft, non-tender, non-distended, normal bowel sounds Extremities: no cyanosis, no edema Neurological - other findings: left hemiparesis upper > lower Hosp A/P (1) Cerebrovascular accident (CVA) due to occlusion of cerebellar artery Code(s): I63.549 - CEREB INFRC DUE TO UNSP OCCLS OR STENOS OF UNSP CEREBLR ART Status: Acute Qualifiers: Laterality of affected vessel: left Qualified Code(s): I63.542 - Cerebral infarction due to unspecified occlusion or stenosis of left cerebellar artery (2) Hydrocephalus Code(s): G91.9 - HYDROCEPHALUS, UNSPECIFIED Status: Acute Qualifiers: Hydrocephalus type: obstructive Qualified Code(s): G91.1 - Obstructive hydrocephalus (3) Acute respiratory failure with hypoxia and hypercapnia Code(s): J96.01 - ACUTE RESPIRATORY FAILURE WITH HYPOXIA; J96.02 - ACUTE RESPIRATORY FAILURE WITH HYPERCAPNIA Status: Acute (4) Aspiration pneumonia Code(s): J69.0 - PNEUMONITIS DUE TO INHALATION OF FOOD AND VOMIT Status: Acute Qualifiers: Aspiration pneumonia type: due to regurgitated food (5) Acute encephalopathy Code(s): G93.40 - ENCEPHALOPATHY, UNSPECIFIED Status: Acute (6) Hypertensive urgency Code(s): I16.0 - HYPERTENSIVE URGENCY Status: Resolved (7) Basilar artery aneurysm Code(s): I72.5 - ANEURYSM OF OTHER PRECEREBRAL ARTERIES Status: Chronic (8) Morbid obesity with BMI of 50.0-59.9, adult Code(s): E66.01 - MORBID (SEVERE) OBESITY DUE TO EXCESS CALORIES; Z68.43 - BODY MASS INDEX [BMI] 50.0-59.9, ADULT Status: Chronic (9) Obesity hypoventilation syndrome Code(s): E66.2 - MORBID (SEVERE) OBESITY WITH ALVEOLAR HYPOVENTILATION Status: Chronic - Plan Has multiple intracranial issues including left pica cva, 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 She was on heparin drip for the clot burden in posterior fossa arteries to prevent further decompensation and was later switch out to asp as she needed EVD. for early trach and peg on wednesday if she agrees, I have d/w mother over phone, she has reservations now as pt does not want it, she is aware of resp compromise with obesity and hypoventilation issues. continue asp, lipitor, levaquin and ancef, lopressor, protonix, dvt prophylaxis, iv fluids sister mentions that patient had hematuria on arrival itself, coags are normal, urine is clearing up this morning. she got intubated on 09/23/2020, is on minimal vent settings now. Plan is for to remove EVD in am.
[2020-09-29] MEDS: Labetalol HCl 100 MG/20 ML VIAL SLOW IVP PRN (16:37)
[2020-09-29] MEDS: Atorvastatin Calcium 40 MG TAB PO SCH (20:39)
[2020-09-29] MEDS: Aspirin 300 MG Suppository PR SCH (20:39)
[2020-09-29] MEDS: GUAIFENESIN SF SOLN 200 MG/10 ML UDCUP PO PRN (20:50)
[2020-09-30] MEDS: niCARdipine 50 MG in Sodium Chloride 0.9% 250 ML 230 ML IV SCH ×3 (00:29→18:28)
[2020-09-30 03:59] LABS: #Eosinphils 0.3 thou/uL (0.0-0.7); #Lymphocytes 1.6 thou/uL (1.20-3.40); #Neutrophils 8.2 thou/uL (1.40-6.50); %Basophils 0.1 % (0.0-1.0); %Eosinophils 2.9 % (0.0-10.0); %Lymphocytes 14.7 % (21.0-51.0); %Monocytes 9.3 % (0.0-10.0); %Neutrophils 73.1 % (42.0-75.0); Hemoglobin 13.1 g/dL (12.0-16.0); Mean Corpuscular HGB CONC 32.6 g/dL (32.0-36.0); Mean Corpuscular Hemoglobin 30.9 pg (27.0-31.0); Mean Corpuscular Volume 94.6 fL (78.0-98.0); Mean Platelet Volume 8.2 fL (7.4-10.4); Platelet Count 276 thou/uL (130-400); RBC Distribution Width 11.8 % (11.5-14.5); Red Blood Cell (RBC) Count 4.24 mill/uL (4.20-5.40); White Blood Cell (WBC) Count 11.2 thou/uL (4.8-10.8)
[2020-09-30 04:22] LABS: Anion Gap 13 mmol/L (10-20); BUN (Urea Nitrogen) 8 mg/dL (9.8-20.1); Calc. Creatinine Clearance 189 mL/min (70-130); Calcium 8.5 mg/dL (7.8-10.44); Carbon Dioxide 26 mmol/L (22-29); Chloride 108 mmol/L (98-107); Glucose 99 mg/dL (70-105); Potassium 3.5 mmol/L (3.5-5.1); Sodium 143 mmol/L (136-145)
[2020-09-30] MEDS: Acetaminophen 325 MG TAB PO PRN (04:33)
[2020-09-30] MEDS: Propofol 1,000 MG/100 ML VIAL IV PRN ×4 (04:37→20:42)
[2020-09-30] MEDS: CEFAZOLIN 2 GM in Premix Bag 1 BAG IVPB SCH (05:46)
[2020-09-30] MEDS ORDERED: Potassium Chloride 20 MEQ TAB PO SCH (06:45)
--- NOTE | 2020-09-30 07:14 | PRG ---
DATE OF SERVICE: 09/30/2020 I saw Lexus Chase in her ICU room this morning. The drain has been clamped for the last 24 hours. She has done relatively well neurologically. No events have been reported. Among electronically recorded vital signs, I see a maximum temperature of 99.4 degrees Fahrenheit overnight. Blood pressures have been in the 120s to 160s. Neurological examination, Ms. Chase opens her eyes as I entered the room. She follows commands quite well. She wiggles toes on both sides and she holds her right thumb up. She is not moving the left arm. Her level of alertness and response times have improved since I saw her on Wednesday. This morning, CT examination of the brain shows a slightly increased size of the ventricles, but this is compared to slit ventricles on the last scan. The ventricles are normal. There is more room in the posterior fossa for CSF now than there was on previous scan suggesting that the cerebellar swelling is on its way back down. White blood cell count is 11.2, the sodium is 143. We plan to remove Ms. Chase's external ventricular drain today. Once it has been out for 12 hours, then we can restart the Lovenox. She has been a slow wean from the ventilator and the endotracheal tube has been in for almost a week now. I think tracheostomy, gastrostomy will actually make her care faster and more straightforward. She is going to need rehabilitation and eventually some management of her intracranial vasculature. Job ID: [id number]
--- NOTE | 2020-09-30 08:37 | CT ---
PRELIMINARY REPORT/[facility]/EMERGENCY AFTER HOURS PROCEDURE: EXAM: CT Head Without Intravenous Contrast. CLINICAL HISTORY: Follow up. repeat eval EVD clamped overnight. TECHNIQUE: Axial computed tomography images of the head/brain without intravenous contrast. COMPARISON: September 28, 2020 FINDINGS: Ventricular size is increasing since previous study with a small amount of interventricular blood not ed in the posterior horn of the right lateral ventricle presumably related to the interventricular pr essure monitor or shunt. Small focus of parenchymal hemorrhage along the shunt path is less conspicu ous. Large vascular anomaly in the posterior fossa again noted. Large left cerebellar infarct again noted but less conspicuous on the current study. Less mass-effect on the fourth ventricle. IMPRESSION: Increasing size of the lateral and fourth ventricles in the interval. ELECTRONICALLY SIGNED BY: Fer Vega MD Sep 30, 2020 4:29:37 AM CHANGE LEAD This report is intended for review by the ordering physician only, in accordance of law. If you recei ve this report in error, please call [facility] at [phone]. FINAL REPORT EMERGENCY AFTER HOURS CT BRAIN WITHOUT CONTRAST: FINDINGS/IMPRESSION: I agree with the findings and impression given in the preliminary report per [facility] physici an. There is increasing size of the lateral ventricles compare to the prior examination, but the ventricl es are not overly enlarged to suggest hydrocephalus at this time. There is resorbing hemorrhage aroun d that right-sided ventriculostomy catheter. A large vascular anomaly is again seen anterior to the p ons and mid brain. POS: EAA
--- NOTE | 2020-09-30 08:38 | PRG ---
DATE OF SERVICE: 09/30/2020 SUBJECTIVE: The patient remains intubated, on mechanical ventilation, with no acute changes overnight. OBJECTIVE: VITAL SIGNS: Temperature 98.7, pulse 61, blood pressure 146/85, O2 saturation 100%. GENERAL: She is awake, but not really following commands for me. HEENT: Unremarkable. NECK: No JVD. CHEST: Clear. CARDIAC: S1, S2. Regular. ABDOMEN: Soft. EXTREMITIES: No edema. DIAGNOSTIC DATA: Chest x-ray is fairly clear. X-ray does not show any new findings. LABORATORY DATA: Sodium 143, potassium 3.5, chloride 108, CO2 of 26, BUN 8, creatinine 0.6, glucose 99. White blood cell count 11.2, hematocrit 40, and platelet count 276. ASSESSMENT: 1. Status post stroke. 2. Hydrocephalus - her EVD was taken out today. 3. Hypertension. 4. Obesity/sleep apnea. PLAN: Trach and PEG planned. I think she needs this, given the best chance for recovery. At that point, a referral can be made to LTAC. Job ID: [id number]
[2020-09-30] MEDS: Pantoprazole 40 MG GRANULES PACKET PER TUBE SCH ×2 (08:48→20:42)
[2020-09-30] MEDS: Amlodipine 10 MG TAB PER TUBE SCH (08:48)
[2020-09-30] MEDS: Metoprolol Tartrate 25 MG TAB PO SCH ×2 (08:48→20:42)
--- NOTE | 2020-09-30 09:03 | RAD ---
PORTABLE CHEST: HISTORY: Pneumonia. CCU followup. COMPARISON: 09/29/2020. FINDINGS: ET tube and NG tube are again noted. Heart size is prominent but accentuated by this projection. Ri ght perihilar atelectasis or infiltrate. Otherwise, no focal consolidation or infiltrate seen. Smal l effusions may be present and there is evidence of left basilar atelectasis. IMPRESSION: No significant change from 09/29/2020. POS: AGW
[2020-09-30] MEDS ORDERED: diphenhydrAMINE 50 MG/ML VIAL ONE (10:21)
[2020-09-30] MEDS ORDERED: PROPOFOL 200 MG/20 ML VIAL ONE (10:21)
[2020-09-30] MEDS ORDERED: Ondansetron PF 4 MG/2 ML Vial ONE (10:21)
[2020-09-30] MEDS ORDERED: Rocuronium Bromide 10 MG/ML (10ML VIAL) ONE (10:21)
[2020-09-30 12:17] LABS: Potassium 3.7 mmol/L (3.5-5.1)
[2020-09-30] MEDS: Sodium Chloride 0.9% 1,000 ML IV SCH (13:45)
[2020-09-30] MEDS ORDERED: Bupivacaine PF 0.5% 30 ML VIAL ONE (14:33)
[2020-09-30] MEDS ORDERED: XYLOCAINE 2%-EPI 1:100,000 20 ML VIAL ONE (14:33)
[2020-09-30] MEDS ORDERED: Fentanyl 100 MCG/2 ML VIAL ONE (14:34)
--- NOTE | 2020-09-30 15:56 | PDOC.HOSPP ---
- Subjective Encounter Date: 09/30/20 Encounter Time: 08:45 Subjective: awakens easily, is on vent mother at bedside moves all extremities well, left upper is able to move a bit this am - Objective Vital Signs & Weight: Vital Signs (12 hours) Temp Pulse Pulse Pulse Resp BP BP 09/30/20 14:24 68 09/30/20 14:00 31 H 09/30/20 12:00 99.9 F H 21 H 09/30/20 10:47 63 164/91 H 09/30/20 10:00 32 H 09/30/20 09:33 62 68 145/84 H 09/30/20 08:48 63 126/76 09/30/20 08:00 99.0 F 16 09/30/20 07:34 76 09/30/20 06:00 16 09/30/20 04:00 98.7 F 12 BP Pulse Ox Pulse Ox Pulse Ox 09/30/20 14:24 09/30/20 14:00 09/30/20 12:00 09/30/20 10:47 09/30/20 10:00 09/30/20 09:33 163/88 H 100 100 09/30/20 08:48 09/30/20 08:00 100 09/30/20 07:34 09/30/20 06:00 09/30/20 04:00 Weight Admit Weight 265 lb 14.04 oz Weight 262 lb 5.601 oz Most Recent Monitor Data Heart Rate from ECG 67 NIBP 156/88 NIBP BP-Mean 110 Respiration from ECG 16 SpO2 100 I&O: 09/29/20 09/30/20 10/01/20 06:59 06:59 06:59 Intake Total 8256 1432 Output Total 4272 2630 555 [facility] [phone] Result Diagrams: 09/30/20 03:32 09/30/20 11:41 Hospitalist ROS - Medication Medications: Active Medications Generic Name Dose Route Start Last Admin Trade Name Freq PRN Reason Stop Dose Admin Acetaminophen 650 mg 09/19/20 14:00 09/30/20 04:33 Acetaminophen 325 Mg Tab PO 650 mg Q6H PRN Administration Fever > 101 or Headache Acetaminophen 650 mg 09/19/20 14:00 09/24/20 09:45 Acetaminophen 650 Mg Suppository ME 650 mg Q4H PRN Administration Headache/Fever/Mild Pain (1-3) Amlodipine Besylate 10 mg 09/30/20 09:00 09/30/20 08:48 Amlodipine 10 Mg Tab PER TUBE 10 mg DAILY HOLLY Administration Aspirin 300 mg 09/21/20 21:00 09/29/20 20:39 Aspirin 300 Mg Suppository ME 300 mg HS HOLLY Administration Atorvastatin Calcium 40 mg 09/21/20 21:00 09/29/20 20:39 Atorvastatin Calcium 40 Mg Tab PO 40 mg HS HOLLY Administration Fentanyl 25 mcg 09/21/20 16:49 09/25/20 17:46 Fentanyl 100 Mcg/2 Ml Vial SLOW IVP 25 mcg Q1H PRN Administration Moderate to Severe Pain (6-10) Guaifenesin 200 mg 09/21/20 07:54 09/29/20 20:50 Guaifenesin Sf Soln 200 Mg/10 Ml Udcup PO 200 mg Q4H PRN Administration Cough Hydralazine HCl 10 mg 09/21/20 13:39 09/22/20 09:18 Hydralazine 20 Mg/Ml Vial SLOW IVP 10 mg Q15MIN PRN Administration SBP >180 mm Hg Nicardipine HCl 50 mg/ Sodium 250 mls @ 0 mls/hr 09/20/20 18:15 09/30/20 05:46 Chloride IV 250 mls INF HOLLY Administration Protocol As Directed Sodium Chloride 1,000 mls @ 75 mls/hr 09/21/20 16:45 09/30/20 13:45 Normal Saline 0.9% IV Not Given .[id number] HOLLY Levofloxacin 750 mg/ Device 150 mls @ 100 mls/hr 09/26/20 08:00 09/30/20 07:51 IVPB 150 mls Q24HR HOLLY Administration Ibuprofen 400 mg 09/25/20 07:45 09/25/20 17:34 Ibuprofen 200 Mg Tab PO 400 mg Q6H PRN Administration Fever > 101 Metoprolol Tartrate 25 mg 09/30/20 09:00 09/30/20 08:48 Metoprolol Tartrate 25 Mg Tab PO 25 mg BID HOLLY Administration Pantoprazole Sodium 40 mg 09/30/20 09:00 09/30/20 08:48 Pantoprazole 40 Mg Granules Packet PER TUBE Not Given Q12HR HOLLY Propofol 1,000 mg 09/24/20 07:45 09/30/20 12:24 Propofol 1,000 Mg/100 Ml Vial IV 10/24/20 07:45 1,000 mg INF PRN Administration TO ACHIEVE GOAL RASS Protocol Hospitalist Exam Vitals: Vital Signs (12 hours) Temp Pulse Pulse Pulse Resp BP BP 09/30/20 14:24 68 09/30/20 14:00 31 H 09/30/20 12:00 99.9 F H 21 H 09/30/20 10:47 63 164/91 H 09/30/20 10:00 32 H 09/30/20 09:33 62 68 145/84 H 09/30/20 08:48 63 126/76 09/30/20 08:00 99.0 F 16 09/30/20 07:34 76 09/30/20 06:00 16 09/30/20 04:00 98.7 F 12 BP Pulse Ox Pulse Ox Pulse Ox 09/30/20 14:24 09/30/20 14:00 09/30/20 12:00 09/30/20 10:47 09/30/20 10:00 09/30/20 09:33 163/88 H 100 100 09/30/20 08:48 09/30/20 08:00 100 09/30/20 07:34 09/30/20 06:00 09/30/20 04:00 Weight Admit Weight 265 lb 14.04 oz Weight 262 lb 5.601 oz Most Recent Monitor Data Heart Rate from ECG 67 NIBP 156/88 NIBP BP-Mean 110 Respiration from ECG 16 SpO2 100 Eye: PERRL, anicteric sclera ENT: no oropharyngeal lesions, moist mucosa Neck: supple, no JVD Heart: RRR, no murmur Respiratory: no wheezes, no rales, rhonchi Gastrointestinal: soft, non-tender, non-distended, normal bowel sounds Extremities: no cyanosis, no edema Neurological: cranial nerve grossly intact Neurological - other findings: left hemiparesis Hosp A/P (1) Cerebrovascular accident (CVA) due to occlusion of cerebellar artery Code(s): I63.549 - CEREB INFRC DUE TO UNSP OCCLS OR STENOS OF UNSP CEREBLR ART Status: Acute Qualifiers: Laterality of affected vessel: left Qualified Code(s): I63.542 - Cerebral infarction due to unspecified occlusion or stenosis of left cerebellar artery (2) Hydrocephalus Code(s): G91.9 - HYDROCEPHALUS, UNSPECIFIED Status: Acute Qualifiers: Hydrocephalus type: obstructive Qualified Code(s): G91.1 - Obstructive hydrocephalus (3) Acute respiratory failure with hypoxia and hypercapnia Code(s): J96.01 - ACUTE RESPIRATORY FAILURE WITH HYPOXIA; J96.02 - ACUTE RESPIRATORY FAILURE WITH HYPERCAPNIA Status: Acute (4) Aspiration pneumonia Code(s): J69.0 - PNEUMONITIS DUE TO INHALATION OF FOOD AND VOMIT Status: Acute Qualifiers: Aspiration pneumonia type: due to regurgitated food (5) Acute encephalopathy Code(s): G93.40 - ENCEPHALOPATHY, UNSPECIFIED Status: Acute (6) Hypertensive urgency Code(s): I16.0 - HYPERTENSIVE URGENCY Status: Resolved (7) Basilar artery aneurysm Code(s): I72.5 - ANEURYSM OF OTHER PRECEREBRAL ARTERIES Status: Chronic (8) Morbid obesity with BMI of 50.0-59.9, adult Code(s): E66.01 - MORBID (SEVERE) OBESITY DUE TO EXCESS CALORIES; Z68.43 - BODY MASS INDEX [BMI] 50.0-59.9, ADULT Status: Chronic (9) Obesity hypoventilation syndrome Code(s): E66.2 - MORBID (SEVERE) OBESITY WITH ALVEOLAR HYPOVENTILATION Status: Chronic - Plan Has multiple intracranial issues including left pica cva, 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 She was on heparin drip for the clot burden in posterior fossa arteries to prevent further deco mpensation and was later switch out to asp as she needed EVD. for trach and peg today, d/w mother and patient at bedside, multiple confirmations obtained to go for it. continue asp, lipitor, levaquin and ancef, lopressor, protonix, dvt prophylaxis, iv fluids sister mentions that patient had hematuria on arrival itself, coags are normal, urine is clearing up this morning. she got intubated on 09/23/2020, is on minimal vent settings now. EVD was removed 09/30/20. weaning from am as tolerated, will need rehab for dc plan
[2020-09-30] MEDS ORDERED: Sodium Chloride 0.9% 30 ML ONE (16:07)
--- NOTE | 2020-09-30 17:08 | OP ---
DATE OF PROCEDURE: 09/30/2020 PREOPERATIVE DIAGNOSES: Intracranial bleed, stroke, dysphagia, morbid obesity, respiratory failure, ventilatory dependent. POSTOPERATIVE DIAGNOSES: Intracranial bleed, stroke, dysphagia, morbid obesity, respiratory failure, ventilatory dependent. PROCEDURES PERFORMED: #8 Bivona tracheostomy tube. Percutaneous endoscopic gastrostomy tube. Left subclavian vein central line. ANESTHESIA: General, local 0.5% Marcaine 30 mL mixed with 1% Xylocaine with epinephrine 20 mL. DESCRIPTION OF PROCEDURE: The patient was taken to the operating room, where under general anesthesia, neck and chest prepared with ChloraPrep and draped in routine fashion. Local anesthetic infiltrated in skin and subcutaneous tissue. Anterior neck incision made above the manubrium, carried down through skin, platysma, dividing anterior jugular veins between 4-0 silk ties. Strap muscles reflected laterally. Thyroid isthmus transected with cautery. Trachea identified below the cricoid. Tracheostomy hook used to facilitate this as the patient is morbidly obese. A window made over 2 cartilaginous rings, excised, and good hemostasis noted. Her endotracheal tube removed and 8 Bivona tracheostomy tube placed directly in the trachea, balloon inflated and connected to the ventilator and incision closed on either side with continuous suture of 3-0 Prolene. Tracheostomy appliance secured with 3-0 Prolene. Tracheostomy straps secured. Sterile dressing applied. Endoscope was placed per os under direct visualization. Using air insufflation, passed throughout the esophagus and the stomach, noting a good indentation of left subcostal. ChloraPrep was used. Incision made. Trocar catheter introduced percutaneously within the gastric lumen. Wire introduced, grasped with a snare, brought out through the mouth, connected to the feeding tube. Feeding tube lubricated, brought down through the mouth, esophagus, fixated against the stomach, fixated the abdominal wall with fixation device. Tube tailored to length, connected to the feeding device. The patient tolerated the procedure well. Left paraclavicular area prepared with ChloraPrep and draped in routine fashion. Trocar catheter introduced in subclavian vein with infraclavicular approach and Seldinger technique used to place triple-lumen catheter, removing the J-wire, securing the catheter with 3-0 silk. Sterile dressing applied. The patient tolerated the procedure well. Job ID: [id number]
--- NOTE | 2020-09-30 17:16 | RAD ---
XR Chest 1 View Portable History: Central line placement Comparison: Radiograph same day Findings: Subclavian central venous catheter tip projects over the mid SVC. Near complete whiteout le ft hemithorax. The tracheostomy tube is in place. No enteric tube is appreciated. No acute osseous abnormality Impression: 1. New complete whiteout left hemithorax may be sequela of volume loss due to the absence of rightwar d mediastinal shift. 2. Uncomplicated central venous catheter placement with tip at the mid SVC. 3. The tracheostomy tube placement.
[2020-09-30] MEDS: Fentanyl 100 MCG/2 ML VIAL SLOW IVP PRN (19:30)
[2020-09-30] MEDS: Aspirin 300 MG Suppository PR SCH (20:42)
[2020-09-30] MEDS: Atorvastatin Calcium 40 MG TAB PO SCH (20:42)
[2020-10-01] MEDS: Propofol 1,000 MG/100 ML VIAL IV PRN ×2 (00:32→03:18)
[2020-10-01 04:09] LABS: #Eosinphils 0.3 thou/uL (0.0-0.7); #Lymphocytes 1.8 thou/uL (1.20-3.40); #Monocytes 1.1 thou/uL (0.11-0.59); #Neutrophils 9.1 thou/uL (1.40-6.50); %Basophils 0.2 % (0.0-1.0); %Eosinophils 2.2 % (0.0-10.0); %Lymphocytes 14.5 % (21.0-51.0); Hemoglobin 12.1 g/dL (12.0-16.0); Mean Corpuscular HGB CONC 33.6 g/dL (32.0-36.0); Mean Corpuscular Hemoglobin 31.9 pg (27.0-31.0); Mean Platelet Volume 8.2 fL (7.4-10.4); Platelet Count 261 thou/uL (130-400); RBC Distribution Width 11.6 % (11.5-14.5); White Blood Cell (WBC) Count 12.3 thou/uL (4.8-10.8)
[2020-10-01] MEDS: Sodium Chloride 0.9% 1,000 ML IV SCH (04:16)
[2020-10-01] MEDS: hydrALAZINE 20 MG/ML VIAL SLOW IVP PRN (04:18)
[2020-10-01 04:34] LABS: Anion Gap 12 mmol/L (10-20); BUN (Urea Nitrogen) 10 mg/dL (9.8-20.1); Calc. Creatinine Clearance 194 mL/min (70-130); Calcium 8.2 mg/dL (7.8-10.44); Carbon Dioxide 28 mmol/L (22-29); Chloride 107 mmol/L (98-107); Glucose 88 mg/dL (70-105); Potassium 3.5 mmol/L (3.5-5.1); Sodium 143 mmol/L (136-145)
[2020-10-01] MEDS: GUAIFENESIN SF SOLN 200 MG/10 ML UDCUP PO PRN (05:50)
[2020-10-01] MEDS ORDERED: Potassium Chloride 20 MEQ TAB PO SCH (06:30)
[2020-10-01] MEDS: Labetalol HCl 100 MG/20 ML VIAL SLOW IVP PRN ×3 (06:36→16:50)
--- NOTE | 2020-10-01 07:02 | PRG ---
DATE OF SERVICE: 10/01/2020 Rena had a trach and PEG yesterday. She seems to be more comfortable this morning. No events were reported from overnight. The Maximum temperature I see in the last 24 hours is 99.9 degrees Fahrenheit. Blood pressures have been in the 150s to 180s, which are too high. On examination, Ms. Chase is wide awake as I entered the room. She is looking around. She nods and shakes her head to questions. She follows commands with the right hand and the toes. The left toes are moving. I think I got a hand squeeze on the left side today, which will be the first time in about a week that has happened. Could be reflex activity. White blood cell count is 12.3, sodium is 143. Ms. Chase, I believe it is out of the mo as far as neurosurgical intervention for her stroke. The swelling is on the way down. Her external ventricular drain is out. She will be started on therapeutic dose Lovenox now and transition to a blood thinner of choice per Neurology. 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 I do not know how old it is. I would not want it to propagate. This is an arterial blood flow and an anti-platelet agent may be all she needs, but again, I will defer to the expertise of our colleagues in Neurology for stroke management. Our group will follow up regarding the aneurysmal dilatation of her intracranial vessels at some point in the future. Hers is a difficult case. She will need rehab for this. Job ID: [id number] MTDD
[2020-10-01] MEDS: niCARdipine 50 MG in Sodium Chloride 0.9% 250 ML 230 ML IV SCH (07:23)
[2020-10-01] MEDS ORDERED: Furosemide 40 MG/4 ML VIAL SLOW IVP SCH (08:00)
--- NOTE | 2020-10-01 08:07 | PRG ---
DATE OF SERVICE: 10/01/2020 SUBJECTIVE: The patient underwent tracheostomy placement yesterday. She is awake, alert, follows commands without difficulty. OBJECTIVE: VITAL SIGNS: Temperature 99.2, pulse 79, blood pressure 183/88. She is currently on nicardipine drip at 2.5 mg/hour, 24-hour intake 1629, output 1565. HEENT: Unremarkable. NECK: Trach in good position. LUNGS: Coarse breath sounds. CARDIAC: S1, S2 regular. ABDOMEN: Obese, soft, nontender. EXTREMITIES: Trace edema throughout. LABORATORY DATA: White blood cell count 12, hematocrit 31.9, and platelet count 261. Sodium 143, potassium 3.5, chloride 107, CO2 of 28, BUN 10, creatinine 0.6, glucose 88. ASSESSMENT: 1. Status post cerebellar stroke. 2. Status post obstructive hydrocephalus. 3. Hypertension. 4. Obstructive sleep apnea. 5. Respiratory failure, requiring mechanical ventilation. PLAN: I think we would be able to quickly proceed with trach collar trials on this patient. I have made an LTAC referral. The main focus from this point forward should be rehab. I think she could probably stand a dose of diuretics as she seems to be grossly fluid overloaded. Job ID: [id number]
--- NOTE | 2020-10-01 08:08 | RAD ---
EXAM: Single view of the chest HISTORY: Pneumonia COMPARISON: 09/30/2020 FINDINGS: Single view of the chest shows an enlarged but stable cardiomediastinal silhouette. Bilater al pulmonary vascular enlargement is seen. The tracheostomy and central venous catheter are unchanged in position. There is improvement in aeration in the left hemithorax compared to the prior exam. Subtle opacity in the left lung base may represent atelectasis or infiltrates. No acute osseous abnormality. IMPRESSION: Improvement in aeration of the left lung.
[2020-10-01] MEDS: Metoprolol Tartrate 25 MG TAB PO SCH (09:13)
[2020-10-01] MEDS: Amlodipine 10 MG TAB PER TUBE SCH (09:13)
[2020-10-01] MEDS: Pantoprazole 40 MG GRANULES PACKET PER TUBE SCH ×2 (09:14→19:48)
[2020-10-01] MEDS: Acetaminophen 325 MG TAB PO PRN ×2 (09:23→21:02)
[2020-10-01] MEDS ORDERED: Metoprolol Tartrate 25 MG TAB PO SCH (09:45)
[2020-10-01] MEDS ORDERED: HYDROcodone/Chlorphen Polis 5 ML UDCUP PO PRN (10:34)
[2020-10-01] MEDS: HYDROcodone/Acetaminophen 5/325 mg Tablet PO PRN ×3 (12:24→22:52)
[2020-10-01 13:21] VITALS: BMI 48.9
--- NOTE | 2020-10-01 14:11 | PDOC.HOSPP ---
- Subjective Encounter Date: 10/01/20 Encounter Time: 08:45 Subjective: awake, on trach and vent sister at bedside - Objective Vital Signs & Weight: Vital Signs (12 hours) Temp Pulse Pulse Pulse Pulse Resp BP 10/01/20 11:00 98.4 F 10/01/20 10:52 73 71 69 10/01/20 10:00 15 10/01/20 09:14 83 186/104 H 10/01/20 09:13 73 186/104 H 10/01/20 08:00 16 10/01/20 07:24 73 10/01/20 07:00 99.4 F 10/01/20 06:00 14 10/01/20 04:18 73 174/95 H 10/01/20 04:00 99.2 F 14 BP BP BP Pulse Ox Pulse Ox Pulse Ox Pulse Ox 10/01/20 11:00 10/01/20 10:52 189/103 H 150/99 H 174/97 H 96 96 94 L 10/01/20 10:00 10/01/20 09:14 10/01/20 09:13 10/01/20 08:00 96 10/01/20 07:24 10/01/20 07:00 10/01/20 06:00 10/01/20 04:18 10/01/20 04:00 Weight Admit Weight 265 lb 4.8 oz Weight 259 lb 4.218 oz Most Recent Monitor Data Heart Rate from ECG 70 NIBP 162/90 NIBP BP-Mean 114 Respiration from ECG 16 SpO2 100 I&O: 09/30/20 10/01/20 10/02/20 06:59 06:59 06:59 Intake Total 1432 1629 220 Output Total 2630 1565 895 Balance -1198 64 -675 Result Diagrams: 10/01/20 03:50 10/01/20 03:50 Hospitalist ROS - Medication Medications: Active Medications Generic Name Dose Route Start Last Admin Trade Name Freq PRN Reason Stop Dose Admin Acetaminophen 650 mg 09/19/20 14:00 10/01/20 09:23 Acetaminophen 325 Mg Tab PO 650 mg Q6H PRN Administration Fever > 101 or Headache Acetaminophen 650 mg 09/19/20 14:00 09/24/20 09:45 Acetaminophen 650 Mg Suppository [place] 650 mg Q4H PRN Administration Headache/Fever/Mild Pain (1-3) Hydrocodone Bitart/Acetaminophen 1 tab 10/01/20 09:34 10/01/20 12:24 Hydrocodone/Acetaminophen 5/325 Mg Tablet PO 1 tab Q4H PRN Administration Moderate Pain (4-6) Amlodipine Besylate 10 mg 09/30/20 09:00 10/01/20 09:13 Amlodipine 10 Mg Tab PER TUBE 10 mg DAILY HOLLY Administration Aspirin 300 mg 09/21/20 21:00 09/30/20 20:42 Aspirin 300 Mg Suppository [place] 300 mg HS HOLLY Administration Atorvastatin Calcium 40 mg 09/21/20 21:00 09/30/20 20:42 Atorvastatin Calcium 40 Mg Tab PO 40 mg HS HOLLY Administration Guaifenesin 200 mg 09/21/20 07:54 10/01/20 05:50 Guaifenesin Sf Soln 200 Mg/10 Ml Udcup PO 200 mg Q4H PRN Administration Cough Hydralazine HCl 10 mg 09/21/20 13:39 10/01/20 04:18 Hydralazine 20 Mg/Ml Vial SLOW IVP 10 mg Q15MIN PRN Administration SBP >180 mm Hg Nicardipine HCl 50 mg/ Sodium 250 mls @ 0 mls/hr 09/20/20 18:15 10/01/20 07:23 Chloride IV 250 mls INF HOLLY Administration Protocol As Directed Levofloxacin 750 mg/ Device 150 mls @ 100 mls/hr 09/26/20 08:00 10/01/20 08:04 IVPB 150 mls Q24HR HOLLY Administration Ibuprofen 400 mg 09/25/20 07:45 09/25/20 17:34 Ibuprofen 200 Mg Tab PO 400 mg Q6H PRN Administration Fever > 101 Labetalol HCl 40 mg 09/30/20 08:02 10/01/20 09:14 Labetalol Hcl 100 Mg/20 Ml Vial SLOW IVP 40 mg Q4H PRN Administration SBP > 180 and HR >100 Pantoprazole Sodium 40 mg 09/30/20 09:00 10/01/20 09:14 Pantoprazole 40 Mg Granules Packet PER TUBE 40 mg Q12HR HOLLY Administration Hospitalist Exam Vitals: Vital Signs (12 hours) Temp Pulse Pulse Pulse Pulse Resp BP 10/01/20 11:00 98.4 F 10/01/20 10:52 73 71 69 10/01/20 10:00 15 10/01/20 09:14 83 186/104 H 10/01/20 09:13 73 186/104 H 10/01/20 08:00 16 10/01/20 07:24 73 10/01/20 07:00 99.4 F 10/01/20 06:00 14 10/01/20 04:18 73 174/95 H 10/01/20 04:00 99.2 F 14 BP BP BP Pulse Ox Pulse Ox Pulse Ox Pulse Ox 10/01/20 11:00 10/01/20 10:52 189/103 H 150/99 H 174/97 H 96 96 94 L 10/01/20 10:00 10/01/20 09:14 10/01/20 09:13 10/01/20 08:00 96 10/01/20 07:24 10/01/20 07:00 10/01/20 06:00 10/01/20 04:18 10/01/20 04:00 Weight Admit Weight 265 lb 4.8 oz Weight 259 lb 4.218 oz Most Recent Monitor Data Heart Rate from ECG 70 NIBP 162/90 NIBP BP-Mean 114 Respiration from ECG 16 SpO2 100 General Appearance: awake alert Eye: PERRL, anicteric sclera ENT: no oropharyngeal lesions, moist mucosa Neck: no JVD Neck - other findings: trach+ Heart: RRR, no murmur Respiratory: no wheezes, no rales Gastrointestinal: soft, non-tender, non-distended, normal bowel sounds Gastrointestinal - other findings: peg+ Extremities: no cyanosis, 1+ LE edema Neurological: cranial nerve grossly intact Neurological - other findings: left hemiparesis worse in left upper Hosp A/P (1) Cerebrovascular accident (CVA) due to occlusion of cerebellar artery Code(s): I63.549 - CEREB INFRC DUE TO UNSP OCCLS OR STENOS OF UNSP CEREBLR ART Status: Acute Qualifiers: Laterality of affected vessel: left Qualified Code(s): I63.542 - Cerebral infarction due to unspecified occlusion or stenosis of left cerebellar artery (2) Hydrocephalus Code(s): G91.9 - HYDROCEPHALUS, UNSPECIFIED Status: Acute Qualifiers: Hydrocephalus type: obstructive Qualified Code(s): G91.1 - Obstructive hydrocephalus (3) Acute respiratory failure with hypoxia and hypercapnia Code(s): J96.01 - ACUTE RESPIRATORY FAILURE WITH HYPOXIA; J96.02 - ACUTE RESPIRATORY FAILURE WITH HYPERCAPNIA Status: Acute (4) Aspiration pneumonia Code(s): J69.0 - PNEUMONITIS DUE TO INHALATION OF FOOD AND VOMIT Status: Acute Qualifiers: Aspiration pneumonia type: due to regurgitated food (5) Acute encephalopathy Code(s): G93.40 - ENCEPHALOPATHY, UNSPECIFIED Status: Acute (6) Hypertensive urgency Code(s): I16.0 - HYPERTENSIVE URGENCY Status: Resolved (7) Basilar artery aneurysm Code(s): I72.5 - ANEURYSM OF OTHER PRECEREBRAL ARTERIES Status: Chronic (8) Morbid obesity with BMI of 50.0-59.9, adult Code(s): E66.01 - MORBID (SEVERE) OBESITY DUE TO EXCESS CALORIES; Z68.43 - BODY MASS INDEX [BMI] 50.0-59.9, ADULT Status: Chronic (9) Obesity hypoventilation syndrome Code(s): E66.2 - MORBID (SEVERE) OBESITY WITH ALVEOLAR HYPOVENTILATION Status: Chronic - Plan Has multiple intracranial issues including left pica cva, 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 She was on heparin drip for the clot burden in posterior fossa arteries to prevent further decompensation and was later switch out to asp as she needed EVD. s/p trach and peg 09/30/20, weaning as tolerated. Is getting a dose of lasix this am, will add oral meds as needed for htn continue asp, lipitor, levaquin, lopressor, protonix, dvt prophylaxis, iv fluids sister mentions that patient had hematuria on arrival itself, coags are normal, urine is clearing up. she got intubated on 09/23/2020, is on minimal vent settings now. EVD was removed 09/30/20. will need ltac for dc plan
--- NOTE | 2020-10-01 16:44 | PRG ---
DATE OF SERVICE: 10/01/2020 Lexus Chase is doing well today after tracheostomy and PEG tube yesterday. Abdomen is soft and nontender. She is tolerating her PEG tube feedings. Tracheostomy site is dry. At this point, I will see her as needed. Please call if necessary. Job ID: [id number]
[2020-10-01] MEDS: Potassium Chloride 20 MEQ TAB PO SCH (17:02)
[2020-10-01] MEDS: Atorvastatin Calcium 40 MG TAB PO SCH (19:47)
[2020-10-01] MEDS: Aspirin 300 MG Suppository PR SCH (19:48)
[2020-10-01] MEDS: Metoprolol Tartrate 50 MG TAB PO SCH (19:48)
[2020-10-02] MEDS: HYDROcodone/Acetaminophen 5/325 mg Tablet PO PRN ×2 (03:05→10:53)
[2020-10-02] MEDS: Labetalol HCl 100 MG/20 ML VIAL SLOW IVP PRN ×3 (03:13→16:12)
[2020-10-02 04:40] LABS: #Eosinphils 0.3 thou/uL (0.0-0.7); #Lymphocytes 1.9 thou/uL (1.20-3.40); %Basophils 0.4 % (0.0-1.0); %Eosinophils 2.4 % (0.0-10.0); %Neutrophils 71.3 % (42.0-75.0); Hemoglobin 11.8 g/dL (12.0-16.0); Mean Corpuscular HGB CONC 31.9 g/dL (32.0-36.0); Mean Corpuscular Hemoglobin 30.5 pg (27.0-31.0); Mean Corpuscular Volume 95.6 fL (78.0-98.0); Mean Platelet Volume 8.5 fL (7.4-10.4); Platelet Count 266 thou/uL (130-400); RBC Distribution Width 11.8 % (11.5-14.5); Red Blood Cell (RBC) Count 3.88 mill/uL (4.20-5.40); White Blood Cell (WBC) Count 11.2 thou/uL (4.8-10.8)
[2020-10-02 05:03] LABS: Anion Gap 7 mmol/L (10-20); BUN (Urea Nitrogen) 14 mg/dL (9.8-20.1); Calc. Creatinine Clearance 186 mL/min (70-130); Calcium 8.4 mg/dL (7.8-10.44); Carbon Dioxide 34 mmol/L (22-29); Chloride 103 mmol/L (98-107); Glucose 132 mg/dL (70-105); Potassium 3.2 mmol/L (3.5-5.1); Sodium 141 mmol/L (136-145)
[2020-10-02] MEDS ORDERED: Potassium Chloride 20 MEQ TAB PO SCH (06:45)
--- NOTE | 2020-10-02 07:09 | PRG ---
DATE OF SERVICE: I saw Lexus Chase in her ICU room this morning. She is on trach collar, not requiring ventilatory support currently. Her EVD has been out for 2 days. No events have been reported overnight. Maximum temperature I see recorded in the last 24 hours is 99.4 degrees Fahrenheit. Blood pressures range between 120s and 170s. 170s is too high. Ms. Chase is wide awake and as I entered the room, she is readjusting herself with the right side of her body in bed getting herself more comfortable. She points to her abdomen and says she has had some abdominal discomfort. She follows commands well with both feet and the right arm. Left arm is not moving reliably yet. White blood cell count is 11.2. Sodium is 141. Ms. Chase does not require neurosurgical intervention during this hospitalization. She will need stroke rehab and eventually return to our office to discuss management of her dolichoectatic vertebrobasilar system. Job ID: [id number] MTDD
[2020-10-02] MEDS ORDERED: Scopolamine 1.5 mg/72 hour Patch TD SCH (07:45)
--- NOTE | 2020-10-02 07:51 | PRG ---
DATE OF SERVICE: 10/02/2020 SUBJECTIVE: The patient underwent tracheostomy a few days ago. She has not been weaned off the ventilator. She is having problems with secretions. OBJECTIVE: VITAL SIGNS: Temperature 98.9, pulse 70, blood pressure 179/110. HEENT: Unremarkable. NECK: Copious secretions from trach. LUNGS: Clear. CARDIAC: S1 and S2. Regular. ABDOMEN: Soft. EXTREMITIES: Edematous. LABORATORY DATA: White blood cell count 11.2, hematocrit 37.1, and platelet count 266. Sodium 141, potassium 3.2, chloride 103, CO2 34, BUN 14, creatinine 0.6, glucose 132. ASSESSMENT: 1. Cerebellar stroke. 2. Status post trach and PEG. 3. Status post respiratory failure. PLAN: 1. Scopolamine patch for secretions. 2. Continue Levaquin through tomorrow. 3. Cannot go to the floor until tracheostomy situation under better control. Job ID: [id number]
[2020-10-02] MEDS: Potassium Chloride 20 MEQ TAB PO SCH ×2 (07:52→16:30)
[2020-10-02] MEDS: Metoprolol Tartrate 50 MG TAB PO SCH ×2 (08:28→20:15)
[2020-10-02] MEDS: Pantoprazole 40 MG GRANULES PACKET PER TUBE SCH ×2 (08:28→20:15)
[2020-10-02] MEDS: Amlodipine 10 MG TAB PER TUBE SCH (08:28)
[2020-10-02] MEDS: Furosemide 40 MG TAB PO SCH ×2 (08:28→13:55)
--- NOTE | 2020-10-02 14:58 | PDOC.HOSPP ---
- Subjective Encounter Date: 10/02/20 Encounter Time: 09:00 Subjective: is on trach collar, breathing well follows verbal stimuli moves all extre except left upper. - Objective Vital Signs & Weight: Vital Signs (12 hours) Temp Pulse BP BP BP BP Pulse Ox 10/02/20 12:00 98.8 F 10/02/20 09:58 177/113 H 163/97 H 162/96 H 10/02/20 09:33 69 177/113 H 10/02/20 08:28 78 190/106 H 10/02/20 07:22 97 10/02/20 07:00 98.9 F 10/02/20 04:00 99.0 F 10/02/20 03:13 75 187/105 H Weight Admit Weight 265 lb 4.8 oz Weight 260 lb 9.382 oz Most Recent Monitor Data Heart Rate from ECG 78 NIBP 151/99 NIBP BP-Mean 116 Respiration from ECG 24 SpO2 97 I&O: 10/01/20 10/02/20 10/03/20 06:59 06:59 06:59 Intake Total 1629 1895 300 Output Total 1565 1840 1109 Balance 64 55 -809 Result Diagrams: 10/02/20 03:50 10/02/20 03:50 Hospitalist ROS - Medication Medications: Active Medications Generic Name Dose Route Start Last Admin Trade Name Freq PRN Reason Stop Dose Admin Acetaminophen 650 mg 09/19/20 14:00 10/01/20 21:02 Acetaminophen 325 Mg Tab PO 650 mg Q6H PRN Administration Fever > 101 or Headache Acetaminophen 650 mg 09/19/20 14:00 09/24/20 09:45 Acetaminophen 650 Mg Suppository [place] 650 mg Q4H PRN Administration Headache/Fever/Mild Pain (1-3) Hydrocodone Bitart/Acetaminophen 1 tab 10/01/20 09:34 10/02/20 10:53 Hydrocodone/Acetaminophen 5/325 Mg Tablet PO 1 tab Q4H PRN Administration Moderate Pain (4-6) Amlodipine Besylate 10 mg 09/30/20 09:00 10/02/20 08:28 Amlodipine 10 Mg Tab PER TUBE 10 mg DAILY HOLLY Administration Aspirin 300 mg 09/21/20 21:00 10/01/20 19:48 Aspirin 300 Mg Suppository [place] 300 mg HS HOLLY Administration Atorvastatin Calcium 40 mg 09/21/20 21:00 10/01/20 19:47 Atorvastatin Calcium 40 Mg Tab PO 40 mg HS HOLLY Administration Furosemide 40 mg 10/02/20 09:00 10/02/20 13:55 Furosemide 40 Mg Tab PO 40 mg 0900,1400 HOLLY Administration Guaifenesin 200 mg 09/21/20 07:54 10/01/20 05:50 Guaifenesin Sf Soln 200 Mg/10 Ml Udcup PO 200 mg Q4H PRN Administration Cough Hydralazine HCl 10 mg 09/21/20 13:39 10/01/20 04:18 Hydralazine 20 Mg/Ml Vial SLOW IVP 10 mg Q15MIN PRN Administration SBP >180 mm Hg Nicardipine HCl 50 mg/ Sodium 250 mls @ 0 mls/hr 09/20/20 18:15 10/01/20 07:23 Chloride IV 250 mls INF HOLLY Administration Protocol As Directed Levofloxacin 750 mg/ Device 150 mls @ 100 mls/hr 09/26/20 08:00 10/02/20 07:51 IVPB 150 mls Q24HR HOLLY Administration Ibuprofen 400 mg 09/25/20 07:45 09/25/20 17:34 Ibuprofen 200 Mg Tab PO 400 mg Q6H PRN Administration Fever > 101 Labetalol HCl 40 mg 09/30/20 08:02 10/02/20 09:33 Labetalol Hcl 100 Mg/20 Ml Vial SLOW IVP 40 mg Q4H PRN Administration SBP > 180 and HR >100 Metoprolol Tartrate 50 mg 10/01/20 21:00 10/02/20 08:28 Metoprolol Tartrate 50 Mg Tab PO 50 mg BID HOLLY Administration Pantoprazole Sodium 40 mg 09/30/20 09:00 10/02/20 08:28 Pantoprazole 40 Mg Granules Packet PER TUBE 40 mg Q12HR HOLLY Administration Potassium Chloride 20 meq 10/01/20 17:00 10/02/20 07:52 Potassium Chloride 20 Meq Tab PO 20 meq BID-WM HOLLY Administration Scopolamine 1.5 mg 10/02/20 07:45 10/02/20 07:48 Scopolamine 1.5 Mg/72 Hour Patch TD 1.5 mg Q3D HOLLY Administration Senna/Docusate Sodium 2 tab 09/21/20 07:54 10/02/20 03:05 Senokot S 8.6-50 Mg Tab PO 2 tab BID PRN Administration Constipation Hospitalist Exam Vitals: Vital Signs (12 hours) Temp Pulse BP BP BP BP Pulse Ox 10/02/20 12:00 98.8 F 10/02/20 09:58 177/113 H 163/97 H 162/96 H 10/02/20 09:33 69 177/113 H 10/02/20 08:28 78 190/106 H 10/02/20 07:22 97 10/02/20 07:00 98.9 F 10/02/20 04:00 99.0 F 10/02/20 03:13 75 187/105 H Weight Admit Weight 265 lb 4.8 oz Weight 260 lb 9.382 oz Most Recent Monitor Data Heart Rate from ECG 78 NIBP 151/99 NIBP BP-Mean 116 Respiration from ECG 24 SpO2 97 General Appearance: awake alert Eye: anicteric sclera ENT: no oropharyngeal lesions, moist mucosa Neck: no JVD Neck - other findings: trach+ Heart: RRR, no murmur Respiratory: no wheezes, no rales, rhonchi Gastrointestinal: soft, non-tender, non-distended, normal bowel sounds Gastrointestinal - other findings: peg+ Extremities: no cyanosis, no edema Neurological: cranial nerve grossly intact Neurological - other findings: left hemiparesis left upper > lower Hosp A/P (1) Cerebrovascular accident (CVA) due to occlusion of cerebellar artery Code(s): I63.549 - CEREB INFRC DUE TO UNSP OCCLS OR STENOS OF UNSP CEREBLR ART Status: Acute Qualifiers: Laterality of affected vessel: left Qualified Code(s): I63.542 - Cerebral infarction due to unspecified occlusion or stenosis of left cerebellar artery (2) Hydrocephalus Code(s): G91.9 - HYDROCEPHALUS, UNSPECIFIED Status: Resolved Qualifiers: Hydrocephalus type: obstructive Qualified Code(s): G91.1 - Obstructive hydrocephalus (3) Acute respiratory failure with hypoxia and hypercapnia Code(s): J96.01 - ACUTE RESPIRATORY FAILURE WITH HYPOXIA; J96.02 - ACUTE RESPIRATORY FAILURE WITH HYPERCAPNIA Status: Acute (4) Aspiration pneumonia Code(s): J69.0 - PNEUMONITIS DUE TO INHALATION OF FOOD AND VOMIT Status: Resolved Qualifiers: Aspiration pneumonia type: due to regurgitated food (5) Acute encephalopathy Code(s): G93.40 - ENCEPHALOPATHY, UNSPECIFIED Status: Resolved (6) Hypertensive urgency Code(s): I16.0 - HYPERTENSIVE URGENCY Status: Resolved (7) Basilar artery aneurysm Code(s): I72.5 - ANEURYSM OF OTHER PRECEREBRAL ARTERIES Status: Chronic (8) Morbid obesity with BMI of 50.0-59.9, adult Code(s): E66.01 - MORBID (SEVERE) OBESITY DUE TO EXCESS CALORIES; Z68.43 - BODY MASS INDEX [BMI] 50.0-59.9, ADULT Status: Chronic (9) Obesity hypoventilation syndrome Code(s): E66.2 - MORBID (SEVERE) OBESITY WITH ALVEOLAR HYPOVENTILATION Status: Chronic - Plan Has multiple intracranial issues including left pica cva, fusiform aneursym of basilar and right vertebral, right distal vertebral has a sacular aneursym as well with thrombus, sacular aneurysm of left vertebral artery, hydrocephalus with evd placed to right frontal area is removed 09/30. She was on heparin drip for the clot burden in posterior fossa arteries to prevent further decompensation and was later switch out to asp as she needed EVD. s/p trach and peg 09/30/20, on trach collar this am (extubated 10/02) continue asp, lipitor, levaquin, lopressor, cozaar, protonix, dvt prophylaxis, iv fluids sister mentions that patient had hematuria on arrival itself, coags are normal, urine is clear. she got intubated on 09/23/2020. will need ltac for dc plan, not sure if [facility] or rehab here will take her with new trach.
[2020-10-02] MEDS: Aspirin 300 MG Suppository PR SCH (20:11)
[2020-10-02] MEDS: Atorvastatin Calcium 40 MG TAB PO SCH (20:14)
[2020-10-03] MEDS: HYDROcodone/Acetaminophen 5/325 mg Tablet PO PRN (01:49)
[2020-10-03 04:59] LABS: #Basophils 0.1 thou/uL (0.0-0.2); #Eosinphils 0.3 thou/uL (0.0-0.7); #Lymphocytes 2.2 thou/uL (1.20-3.40); #Monocytes 0.9 thou/uL (0.11-0.59); #Neutrophils 7.7 thou/uL (1.40-6.50); %Basophils 0.5 % (0.0-1.0); %Eosinophils 2.5 % (0.0-10.0); %Lymphocytes 19.5 % (21.0-51.0); %Monocytes 8.3 % (0.0-10.0); %Neutrophils 69.2 % (42.0-75.0); Hemoglobin 12.7 g/dL (12.0-16.0); Mean Corpuscular Hemoglobin 31.5 pg (27.0-31.0); Mean Corpuscular Volume 95.5 fL (78.0-98.0); Mean Platelet Volume 7.9 fL (7.4-10.4); Platelet Count 291 thou/uL (130-400); RBC Distribution Width 11.9 % (11.5-14.5); Red Blood Cell (RBC) Count 4.03 mill/uL (4.20-5.40); White Blood Cell (WBC) Count 11.1 thou/uL (4.8-10.8)
[2020-10-03 05:15] LABS: Anion Gap 11 mmol/L (10-20); BUN (Urea Nitrogen) 17 mg/dL (9.8-20.1); Carbon Dioxide 34 mmol/L (22-29); Chloride 100 mmol/L (98-107); Potassium 3.3 mmol/L (3.5-5.1); Sodium 142 mmol/L (136-145)
[2020-10-03 05:16] LABS: Calc. Creatinine Clearance 170 mL/min (70-130); Calcium 8.8 mg/dL (7.8-10.44); Glucose 144 mg/dL (70-105)
--- NOTE | 2020-10-03 07:41 | PRG ---
DATE OF SERVICE: 10/03/2020 SUBJECTIVE: I did not find her near as interactive as she was yesterday. She does look around, but she does not follow any commands for me specifically. PHYSICAL EXAMINATION: VITAL SIGNS: Her temperature is 98.5, pulse 77, blood pressure 165/102, O2 saturation 95% on trach collar. HEENT: Unchanged. NECK: She has copious secretions coming from her trach. CARDIOVASCULAR: S1, S2 regular. ABDOMEN: Soft. Nontender to palpation. PEG tube noted. EXTREMITIES: No edema. LABORATORY DATA: White blood cell count 11.1, hematocrit 38.5, platelet count 291. Sodium 142, potassium 3.3, chloride 100, CO2 of 34, BUN 17, creatinine 0.6, glucose 144. ASSESSMENT: Status post trach and PEG after cerebellar area stroke and obstructive hydrocephalus. PLAN: She is eventually going to go to an LTAC. We are waiting a bed. She will have her last day of antibiotics today, and they will be stopped. She is not safe to go to the floor because of suctioning requirements. Her potassium is being replaced. She is developing a contraction alkalosis. Therefore, I would go ahead and hold the diuretics today. Job ID: [id number]
[2020-10-03] MEDS ORDERED: Potassium Bicarbonate/Cit Ac 20 MEQ TAB PER TUBE SCH (08:15)
[2020-10-03] MEDS: Potassium Bicarbonate/Cit Ac 20 MEQ TAB PO SCH ×2 (08:25→17:10)
[2020-10-03] MEDS: Amlodipine 10 MG TAB PER TUBE SCH (08:26)
[2020-10-03] MEDS: Pantoprazole 40 MG GRANULES PACKET PER TUBE SCH (08:26)
[2020-10-03] MEDS: Metoprolol Tartrate 50 MG TAB PO SCH (08:26)
[2020-10-03] MEDS: Potassium Chloride 20 MEQ TAB PO SCH (09:16)
[2020-10-03] MEDS: Labetalol HCl 100 MG/20 ML VIAL SLOW IVP PRN ×2 (10:27→13:31)
--- NOTE | 2020-10-03 11:14 | CT ---
CT Brain WO Con History: Altered mental status Comparison: CT September 30, 2020 Findings: New extensive subarachnoid hemorrhage along the basilar cisterns extending to the sylvian f issures bilaterally, greater on the right. There is hemorrhage surrounding the brainstem along the fourth ventricle and cerebral aqueduct. Large left vertebral and basilar artery aneurysms are visualized. Small volume intraventricular hemorrhage within the right lateral ventricle atria, unchanged. Calvarium is intact. Mild thickening of the maxillary sinuses and right sphenoid sinus. Impression: 1. Ruptured aneurysm with extensive subarachnoid hemorrhage as well as intraparenchymal hemorrhage al faizan the left occipital lobe. The small amount of intraventricular hemorrhage is similar. 2. Left inferior cerebellar hemisphere infarction. Nurse notified of findings via telephone at 11:05 AM.
--- NOTE | 2020-10-03 11:32 | CT ---
EXAM: CT ANGIOGRAM OF THE HEAD INDICATION: Persistent subarachnoid hemorrhage. Evaluate for aneurysm. COMPARISON: 09/19/2020. TECHNIQUE: CT angiogram of the head and neck are performed in the axial plane. Three-dimensional refo rmatted images are submitted for interpretation. FINDINGS: CTA OF THE HEAD WITH AND WITHOUT CONTRAST: POSTCONTRAST CT OF BRAIN: Pathologic enhancement: No pathologic enhancement the brain. There is extensive subarachnoid hemorrhage, better demonstrated on the noncontrast head CT. CTA OF THE BRAIN: Intracranial internal carotid arteries:Stable enhancement and luminal diameter. Stable atherosclerosi s. Anterior circulation: Stable enhancement and luminal diameter of the A1 segments, M1 segments, proxim al A2 segments and proximal MCA branches. Stable fusiform dilatation of the right M2 segment. Intracranial vertebral arteries: Patent. Both vertebral arteries supply the basilar artery. Posterior circulation: Stable fusiform dilatation of the distal right vertebral artery, just prior to its junction with the left vertebral artery. Slightly decreased saccular aneurysm in the left CP angle cistern, measuring 1.4 x 1.1 cm, previously measuring 1.7 x 1.9 cm.. There is stable ectasia an d prominence of the basilar artery. Previously noted eccentric thrombus is less evident. There is mild irregularity involving the basilar artery with a focal outpouching of contrast within the lumen of the basilar artery, in the region of the previously noted thrombosed component. The overall caliber of the basilar artery is unchanged. Stable appearance of the basilar tip. Stable appearance o f bilateral P1 segments. There is stable narrowing of the proximal left P1 segment. IMPRESSION: 1. Redemonstration of extensive subarachnoid hemorrhage. 2. Previously noted thrombosed component of the aneurysm involving the basilar artery is no longer ev ident. There is irregularity and focal outpouching in this region which may be secondary to rupture of known aneurysm. No evidence of active extravasation of contrast. 3. Slight interval decrease in size of an aneurysm in the left CP angle cistern. 4. Stable fusiform aneurysm involving the right M2 segment.
[2020-10-03 12:50] LABS: Anion Gap 13 mmol/L (10-20); BUN (Urea Nitrogen) 18 mg/dL (9.8-20.1); Calc. Creatinine Clearance 170 mL/min (70-130); Calcium 9.1 mg/dL (7.8-10.44); Carbon Dioxide 33 mmol/L (22-29); Chloride 99 mmol/L (98-107); Glucose 167 mg/dL (70-105); Potassium 3.7 mmol/L (3.5-5.1); Sodium 141 mmol/L (136-145)
--- NOTE | 2020-10-03 12:52 | PRG ---
DATE OF SERVICE: 10/03/2020 We were called about, Lexus Chase, an acute neurological decline this morning. She is a 55-year-old, we had been following, and signed off. She was admitted 2 weeks ago with an ischemic stroke of the cerebellum from a dolichoectatic vertebrobasilar system and occlusion of PICA and perhaps AICA. She made it through the swelling portion of her stroke, an external ventricular drain was removed, and we had signed off the case, noting that she could be restarted on her Lovenox to prevent propagation of the clot within the vertebrobasilar system and we noted that blood pressure needed to be controlled to avoid a rupture of the vertebrobasilar aneurysmal dilation. Today, one of the predicted complications has happened and she has had an aneurysmal subarachnoid hemorrhage, most likely from her dolichoectatic vertebrobasilar aneurysm. Her neurological examination has declined, but it is better than I thought it would be when I came to the bedside. When I see Ms. Chase, both eyes were opened. She has a prosthetic right globe, and so that does not serve any purpose on her examination. On the left side, her pupil reacted. She kept her eyes open. She held gaze. When her daughter asked her questions, she nodded. She is moving the left side of her body better than I have seen her in a few days, but the right looks worse to me. The left hand was purposeful, but not following commands. She could localize. She lifted her hand towards her daughter. She moves her fingers with purpose, but she could not follow commands when I asked her to do so. The right side was weaker. The rest of her brainstem reflexes are intact. Blood pressures over the last 24 hours have ranged between the 130s and 199/147. The blood pressure was likely taken after the event today. This morning, lab showed a white blood cell count of 11.1 and a sodium of 142. They have not been repeated. In the coming days, Ms. Chase's managements are going to be incredibly complicated. The amount of blood around the vertebrobasilar system and in the posterior fossa and the basal cisterns suggest that vasospasm is going to be a real concern. In order to treat her vasospasm, we may have to let her blood pressure increased to a point that puts her at risk for a repeat hemorrhage. It is in this setting that a pipeline stent could be considered to place in her vertebrobasilar system and decrease the re-hemorrhage risk. However, that intervention is not available here and requires advanced anti-platelet therapy to prevent the stent from clotting. We will discuss the case with our endovascular neurosurgeon, River Lyles, and we may like to transfer the patient if the family wants ongoing care continued. For now, I am not placing an EVD because I believe we can follow her examination and place one as necessary. We are going to hold off on Lovenox, but keep her on aspirin for the time being. Job ID: [id number] MTDD
[2020-10-03 14:10] LABS: #Eosinphils 0.1 thou/uL (0.0-0.7); #Monocytes 0.7 thou/uL (0.11-0.59); #Neutrophils 9.6 thou/uL (1.40-6.50); %Basophils 0.4 % (0.0-1.0); %Eosinophils 0.6 % (0.0-10.0); %Lymphocytes 8.4 % (21.0-51.0); %Monocytes 6.2 % (0.0-10.0); %Neutrophils 84.4 % (42.0-75.0); Hemoglobin 13.1 g/dL (12.0-16.0); Mean Corpuscular HGB CONC 33.6 g/dL (32.0-36.0); Mean Corpuscular Hemoglobin 32.3 pg (27.0-31.0); Mean Platelet Volume 8.4 fL (7.4-10.4); Platelet Count 304 thou/uL (130-400); RBC Distribution Width 11.9 % (11.5-14.5); Red Blood Cell (RBC) Count 4.05 mill/uL (4.20-5.40); White Blood Cell (WBC) Count 11.3 thou/uL (4.8-10.8)
[2020-10-03 14:42] VITALS: BP 137/87
[2020-10-03 17:28] VITALS: TEMP 97.9
[2020-10-03] MEDS ORDERED: Iopamidol-370 76% 500 ML 1 ML ONE (17:55)
--- NOTE | 2020-10-03 18:47 | DIS ---
DATE OF ADMISSION: 09/19/2020 DATE OF DISCHARGE: 10/03/2020 DISCHARGE DISPOSITION: [facility] [place]. 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 Hydrocephalus was seen. She has had placement of EVD (external ventricular drain) in the right frontal area. This was removed on 09/30/2020, status post trach and PEG done on 09/30/2020. The patient got extubated from ventilator on 10/02/2020, was placed back on ventilator on the day of discharge. She got intubated on 09/23/2020. Ultrasound venous Doppler of bilateral lower extremities done on 09/25/2020 showed no evidence of DVT. CT brain done today that is 10/03/2020 showed ruptured aneurysm with extensive subarachnoid hemorrhage as well as intraparenchymal hemorrhage along the left occipital lobe. Left inferior cerebellar hemisphere infarct. CT angio of brain done today that is 10/03/2020 showed extensive subarachnoid hemorrhage, previously noted thrombosed component of the aneurysm involving the basilar artery is no longer evident. There is irregularity and focal outpouching in this area, which may be secondary to rupture of known aneurysm. No evidence of active extravasation of contrast. Slight interval decrease in size of an aneurysm in the left CP angle cistern. Stable fusiform aneurysm involving the right M2 segment. Blood cultures x2, no growth. Urine culture, no growth. Hemoglobin and hematocrit 13 and 38, platelet count 304, white count of 11 this morning, MCV 96. BUN 18, creatinine 0.6, serum bicarb 33 this morning, calcium 9.1. COVID-19 PCR was not detected on 09/19/2020. Influenza A and B PCRs were negative on the day of admission that is 09/19/2020. DISCHARGE MEDICATIONS: 1. Cardene drip to titrate and keep systolic blood pressures around 140. 2. Lipitor 40 mg p.o. at bedtime. 3. Lopressor 50 mg twice daily. 4. Norvasc 10 mg daily. 5. Protonix 40 mg twice daily. ALLERGIES: NO KNOWN DRUG ALLERGIES. 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 INPATIENT CONSULT: Dr. Madrigal for Neurosurgery, Dr. Tabares for Pulmonology, Dr. Ríos for General Surgery. BRIEF COURSE DURING HOSPITALIZATION: The patient initially got admitted on the 19 of September with complaints of nausea, dizziness, near-syncope, and confusion. Initial workup revealed multiple aneurysms in the basilar and vertebral systems with left cerebellar CVA. The patient clinically had left hemiparesis worse in the left upper extremity than lower extremity. She was initially placed on heparin drip and admitted to ICU. She has had consultations with Neurosurgery. She developed obstructive hydrocephalus and had EVD (external ventricular drain) placed. This was subsequently removed on the September 30. She has had trach and PEG placed on the same day. The patient's heparin was discontinued when EVD was placed and was on DVT prophylaxis. She got extubated yesterday and was on trach collar and doing well. This morning, the patient's mentation got worse and was taken for CT brain, which showed subarachnoid hemorrhage with likely rupture of her basilar and vertebral artery aneurysm. Neurosurgery reconsulted the patient and it was deemed she should be transferred for pipeline stent and further procedures at a higher level in [facility] at [facility] [place]. This has been arranged and the patient will be shortly discharged. Prior to discharge, she was placed back on the ventilator. Cardene drip has been placed to keep systolic blood pressures between 140 and 150. Her overall prognosis is guarded. She is currently hemodynamically stable for the emergent procedure that is needed. [facility] is not available due to weather in the area and the patient will be transported by ground transportation likely. A total of 35 minutes was spent on discharge plan. Please note, I have seen and examined the patient on the day of discharge. Job ID: [id number] [facility]
[2020-10-03] MEDS ORDERED: Enoxaparin Sodium 40 MG/0.4 ML SYRINGE SC SCH (21:00)
--- NOTE | 2020-10-11 13:03 | OP ---
DATE OF PROCEDURE: 09/21/2020 PROCEDURE PERFORMED: Placement of external ventricular drain to treat hydrocephalus. PREPROCEDURE DIAGNOSIS: Hydrocephalus with neurologic decline. DESCRIPTION OF PROCEDURE: After informed consent was obtained from the patient's sister, emergent nature of the procedure conveyed to the patient's sister, we proceeded with right frontal external ventricular drain placement. An incision was made following sterile cleansing, preparation, and draping in the right Isha point. This region was sterilely cleansed, prepared, and draped. Proper patient, pause, and identification were carried out. We then proceeded to perforate the skull, opened the dura, ventricular catheter was placed with release of CSF. This was then secured to the scalp and secured to a [place] drain and the EVD drain was kept open. Procedure was well tolerated. Job ID: [id number]
== END 2020-10-03 17:25 | disposition short-term general hospital (02) | DRG 3 ==
LOC: ERS 11:27 → ERHOLD 13:32 → PACU-TCU 19:29 → CCU 19:35 → PACU-TCU 23:26 → CCU 09-22 14:57
PROVIDERS: ADMIT Internal Medicine; ATTEND Internal Medicine
PROC: 009600Z Drainage of Cerebral Ventricle with Drainage Device, Open Approach (ICD-10-PCS; principal; 2020-09-21)
PROC: 5A09457 Assistance with Respiratory Ventilation, 24-96 Consecutive Hours, Continuous Positive Airway Pressure (ICD-10-PCS; 2020-09-21)
PROC: 5A1955Z Respiratory Ventilation, Greater than 96 Consecutive Hours (ICD-10-PCS; 2020-09-23)
PROC: 0B110F4 Bypass Trachea to Cutaneous with Tracheostomy Device, Open Approach (ICD-10-PCS; 2020-09-30)
PROC: 00P6X0Z Removal of Drainage Device from Cerebral Ventricle, External Approach (ICD-10-PCS; 2020-09-30)
PROC: 0BH17EZ Insertion of Endotracheal Airway into Trachea, Via Natural or Artificial Opening (ICD-10-PCS; 2020-09-30)
PROC: 0DH63UZ Insertion of Feeding Device into Stomach, Percutaneous Approach (ICD-10-PCS; 2020-09-30)
DX: I63.542 Cerebral infarction due to unspecified occlusion or stenosis of left cerebellar artery (principal); J96.01 Acute respiratory failure with hypoxia; J96.02 Acute respiratory failure with hypercapnia; A41.9 Sepsis, unspecified organism; R65.20 Severe sepsis without septic shock; J69.0 Pneumonitis due to inhalation of food and vomit; I60.9 Nontraumatic subarachnoid hemorrhage, unspecified; I61.1 Nontraumatic intracerebral hemorrhage in hemisphere, cortical; G93.41 Metabolic encephalopathy; G91.1 Obstructive hydrocephalus; K92.0 Hematemesis; Z68.42 Body mass index [BMI] 45.0-49.9, adult; E66.2 Morbid (severe) obesity with alveolar hypoventilation; G81.94 Hemiplegia, unspecified affecting left nondominant side; G93.49 Other encephalopathy; I67.1 Cerebral aneurysm, nonruptured; Z20.822 Contact with and (suspected) exposure to COVID-19; M19.90 Unspecified osteoarthritis, unspecified site; R29.702 NIHSS score 2; I77.810 Thoracic aortic ectasia; I11.9 Hypertensive heart disease without heart failure; D72.829 Elevated white blood cell count, unspecified; I16.0 Hypertensive urgency; E87.6 Hypokalemia; R13.10 Dysphagia, unspecified
CPT/HCPCS: 0240U; 36415; 36416; 36600; 70450; 70496; 70498; 70551; 71045; 80048; 80053; 80061; 81001; 82550; 82805; 83036; 83605; 83690; 83880; 83930; 84443; 84484; 84550; 85025; 85060; 85610; 85730; 87040; 87086; 93005; 93970; 94002; 94003; 94640; 94660; 94760; 94799; 95712; 95816; 95819; 95957; 96365; 96366; 96375; C1751; C9113; J0360; J0690; J1200; J1644; J1650; J1940; J1956; J2150; J2405; J2704; J3010; J3480; J7050; Q9967; S0020